=== PATIENT | female | born 1965 | race Caucasian/White ===

== ENCOUNTER 2023-03-17 10:11 | Observation (INO) | payer OTHER ==
[2023-03-17] MEDS ORDERED: SODIUM CHLORIDE 0.9% 1,000 ML IV ONE ×2 (10:30→11:44)
--- NOTE | 2023-03-17 10:33 | ED ---
Alcohol HPI - General Stated Complaint: ETOH Source: patient, EMS Mode of arrival: EMS Limitations: no limitations - History of Present Illness Initial Comments: The patient is a 57-year-old gentleman with a history of hypertension and alcohol abuse presents emergency room with complaints of alcohol intoxication. Patient was going to [facility] for detox from alcohol but was too drunk upon arrival and stumbled out of the car. They sent him to the ER for further evaluation. Patient did not hit his head or lose consciousness. He denies any complaints. He has gone through rehab in the past. He is addicted to alcohol and denies any drug use. He denies any withdrawal symptoms or history of wi thdrawal seizures. - Related Data Allergies Allergy/AdvReac Type Severity Reaction Status Date / Time No Known Allergies Allergy Verified 03/17/23 10:21 Review of Systems ROS Statement: Those systems with pertinent positive or pertinent negative responses have been documented in the HPI. ROS Other: All systems not noted in ROS Statement are negative. Past Medical History Additional Past Medical History / Comment(s): ETOH abuse Past Surgical History: No Surgical Hx Reported Past Psychological History: No Psychological Hx Reported Smoking Status: Never smoker Past Alcohol Use History: Abuse, Daily, Heavy Past Drug Use History: None Reported General Exam Limitations: no limitations General appearance: alert, in no apparent distress Head exam: Present: atraumatic, other (no signs of a hemorrhage, no hematomas. Pupils are equal and reactive bilaterally.) Eye exam: Present: normal appearance, PERRL, EOMI. Absent: scleral icterus, conjunctival injection, periorbital swelling ENT exam: Present: normal exam Respiratory exam: Present: normal lung sounds bilaterally Cardiovascular Exam: Present: regular rate, normal rhythm GI/Abdominal exam: Present: soft Extremities exam: Present: full ROM Back exam: Present: full ROM Neurological exam: Present: alert Psychiatric exam: Present: normal affect, normal mood Skin exam: Present: dry Course Vital Signs 03/17/23 10:19 Temperature 98.1 F Pulse Rate 88 Respiratory 20 Rate Blood Pressure 126/75 O2 Sat by Pulse 99 Oximetry - Reevaluation(s) Reevaluation #1: 03/17/23 12:51 Patient receiving IV fluids. Was given folic acid and thiamine as well as multivitamins in the emergency room. His alcohol level is 287 3 over admitted for observation and then discharged back to see her. Medical Decision Making - Medical Decision Making Was pt. sent in by a medical professional or institution (ERIK Kim, [employer]RI[employer] CAKE MAKER, urgent care, hospital, or skilled nursing...) When possible be specific @ -[No] Did you speak to anyone other than the patient for history (EMS, parent, family, police, friend...)? What history was obtained from this source @ -[No] Did you review nursing and triage notes (agree or disagree)? Why? @ -[I reviewed and agree with nursing and triage notes] Were old charts reviewed (outside hosp., previous admission, EMS record, old EKG, old radiological studies, urgent care reports/EKG's, skilled nursing records)? Report findings @ -[No old charts were reviewed] Differential Diagnosis (chest pain, altered mental status, abdominal pain women, abdominal pain men, vaginal bleeding, weakness, fever, dyspnea, syncope, headache, dizziness, GI bleed, back pain, seizure, CVA, palpatations, mental health, musculoskeletal)? @ -Alcohol abuse, alcohol intoxication EKG interpreted by me (3pts min.). @ -[As above] X-rays interpreted by me (1pt min.). @ -[None done] CT interpreted by me (1pt min.). @ -[None done] U/S interpreted by me (1pt. min.). @ -[None done] What testing was considered but not performed or refused? (CT, X-rays, U/S, labs)? Why? @ -[None] What meds were considered but not given or refused? Why? @ -[None] Did you discuss the management of the patient with other professionals (professionals i.e. , ERIK, FRIED CAKE MAKER, lab, RT, psych nurse, oncology social work, ethylbenzene converter helper, teacher, welfare officer, residential case manager)? Give summary @ -Discussed patient's symptoms are And management with attending ED physician Dr. Dennis today. Was smoking cessation discussed for >3mins.? @ -[No] Was critical care preformed (if so, how long)? @ -[No] Were there social determinants of health that impacted care today? How? (Homele ssness, low income, unemployed, alcoholism, drug addiction, transportation, low edu. Level, literacy, decrease access to med. care, [facility], rehab)? @ -[No] Was there de-escalation of care discussed even if they declined (Discuss DNR or withdrawal of care, Hospice)? DNR status @ -[No] What co-morbidities impacted this encounter? (DM, HTN, Smoking, COPD, CAD, Cancer, CVA, ARF, Chemo, Hep., AIDS, mental health diagnosis, sleep apnea, morbid obesity)? @ -History of alcohol abuse, hypertension Was patient admitted / discharged? Hospital course, mention meds given and route, prescriptions, significant lab abnormalities, going to OR and other pertinent info. @ -Patient will be admitted to the hospital for hydration and Tylenol he is sober for alcohol intoxication Undiagnosed new problem with uncertain prognosis? @ -[No] Drug Therapy requiring intensive monitoring for toxicity (Heparin, Nitro, Insulin, Cardizem)? @ -[No] Were any procedures done? @ -[No] Diagnosis/symptom? @ -Alcohol intoxication Acute, or Chronic, or Acute on Chronic? @ -Acute on chronic Uncomplicated (without systemic symptoms) or Complicated (systemic symptoms)? @ -UnComplicated Side effects of treatment? @ -[No] Exacerbation, Progression, or Severe Exacerbation? @ -[No] Poses a threat to life or bodily function? How? (Chest pain, USA, [place], pneumonia, PE, COPD, DKA, ARF, appy, cholecystitis, CVA, Diverticulitis, Homicidal, Suicidal, threat to staff... and all critical care pts) @ -[No] - Lab Data Result diagrams: 03/17/23 10:34 03/17/23 10:34 Lab Results 03/17/23 03/17/23 Range/Units 10:34 10:34 WBC 5.5 (3.8-10.6) k/uL RBC 4.36 (4.30-5.90) m/uL Hgb 11.3 L (13.0-17.5) gm/dL Hct 36.4 L (39.0-53.0) % MCV 83.4 (80.0-100.0) fL MCH 25.8 (25.0-35.0) pg MCHC 31.0 (31.0-37.0) g/dL RDW 17.2 H (11.5-15.5) % Plt Count 353 (150-450) k/uL MPV 7.8 Neutrophils % 61 % Lymphocytes % 23 % Monocytes % 6 % Eosinophils % 6 % Basophils % 1 % Neutrophils # 3.4 (1.3-7.7) k/uL Lymphocytes # 1.2 (1.0-4.8) k/uL Monocytes # 0.4 (0-1.0) k/uL Eosinophils # 0.4 (0-0.7) k/uL Basophils # 0.1 (0-0.2) k/uL Hypochromasia Moderate Anisocytosis Slight Sodium 140 (137-145) mmol/L Potassium 4.0 (3.5-5.1) mmol/L Chloride 106 (98-107) mmol/L Carbon Dioxide 22 (22-30) mmol/L Anion Gap 12 mmol/L BUN 9 (9-20) mg/dL Creatinine 1.57 H (0.66-1.25) mg/dL Est GFR (CKD-EPI)AfAm 57 (>60 ml/min/1.73 sqM) Est GFR (CKD-EPI)NonAf 49 (>60 ml/min/1.73 sqM) Glucose 83 (74-99) mg/dL Calcium 9.3 (8.4-10.2) mg/dL Total Bilirubin 0.4 (0.2-1.3) mg/dL AST 41 (17-59) U/L ALT 16 (4-49) U/L Alkaline Phosphatase 60 (38-126) U/L Total Protein 6.5 (6.3-8.2) g/dL Albumin 3.0 L (3.5-5.0) g/dL Serum Alcohol 284 H* mg/dL Disposition Clinical Impression: Alcohol intoxication Disposition: ADMITTED IP TO THIS HOSP Condition: Fair Is patient prescribed a controlled substance at d/c from ED?: No If prescribed controlled substance>3 days was MAPS reviewed?: No Referrals: None,Stated [Primary Care Provider] - 1-2 days Time of Disposition: 12:53
[2023-03-17 10:50] LABS: Anisocytosis Slight; Basophils # (A) 0.1 k/uL (0-0.2); Basophils % (A) 1 %; Eosinophils # (A) 0.4 k/uL (0-0.7); Eosinophils % (A) 6 %; HCT 36.4 % (39.0-53.0); HGB 11.3 gm/dL (13.0-17.5); Hypochromasia Moderate; Lymphocytes # (A) 1.2 k/uL (1.0-4.8); Lymphocytes % (A) 23 %; MCH 25.8 pg (25.0-35.0); MCV 83.4 fL (80.0-100.0); Mean Platelet Volume 7.8; Monocytes # (A) 0.4 k/uL (0-1.0); Monocytes % (A) 6 %; Neutrophils # (A) 3.4 k/uL (1.3-7.7); Neutrophils % (A) 61 %; Platelet Count 353 k/uL (150-450); RBC 4.36 m/uL (4.30-5.90); RDW 17.2 % (11.5-15.5); WBC 5.5 k/uL (3.8-10.6)
[2023-03-17 11:07] LABS: ALT 16 U/L (4-49); AST 41 U/L (17-59); African American GFR (CKD) 57 (>60 ml/min/1.73 sqM); Alkaline Phosphatase 60 U/L (38-126); Anion Gap 12 mmol/L; Blood Urea Nitrogen 9 mg/dL (9-20); Calcium 9.3 mg/dL (8.4-10.2); Carbon Dioxide 22 mmol/L (22-30); Chloride 106 mmol/L (98-107); Glucose 83 mg/dL (74-99); Non-African American GFR(CKD) 49 (>60 ml/min/1.73 sqM); Sodium 140 mmol/L (137-145); Total Bilirubin 0.4 mg/dL (0.2-1.3); Total Protein 6.5 g/dL (6.3-8.2)
[2023-03-17 11:32] LABS: Alcohol 284 mg/dL
[2023-03-17] MEDS ORDERED: THIAMINE 100 MG/ML 2 ML VIAL IV STA (12:37)
[2023-03-17] MEDS ORDERED: NALOXONE 0.4 MG/ML 1 ML VIAL IV PRN (12:39)
--- NOTE | 2023-03-17 12:58 | P.HPIM ---
History of Present Illness 57-year-old the male is a being admitted for alcohol intoxication. Patient is supposed to go to [place] today ended up drinking quite a bit and patient was sent in here. Patient denied any history of all call withdraws in the past. Patient does have elevated creatinine baseline is not available. Patient denied any abdominal pain. REVIEW OF SYSTEMS: CONSTITUTIONAL: No fever, no malaise, no fatigue. HEENT: No recent visual problems or hearing problems. Denied any sore throat. CARDIOVASCULAR: No chest pain, orthopnea, PND, no palpitations, no syncope. PULMONARY: No shortness of breath, no cough, no hemoptysis. GASTROINTESTINAL: No diarrhea, no nausea, no vomiting, no abdominal pain. NEUROLOGICAL: No headaches, no weakness, no numbness. HEMATOLOGICAL: Denies any bleeding or petechiae. GENITOURINARY: Denies any burning micturition, frequency, or urgency. MUSCULOSKELETAL/RHEUMATOLOGICAL: Denies any joint pain, swelling, or any muscle pain. ENDOCRINE: Denies any polyuria or polydipsia. The rest of the 14-point review of systems is negative. PHYSICAL EXAMINATION: GENERAL: The patient is alert and oriented x3, not in any acute distress. Well developed, well nourished. HEENT: Pupils are round and equally reacting to light. EOMI. No scleral icterus. No conjunctival pallor. Normocephalic, atraumatic. No pharyngeal erythema. No thyromegaly. CARDIOVASCULAR: S1 and S2 present. No murmurs, rubs, or gallops. PULMONARY: Chest is clear to auscultation, no wheezing or crackles. ABDOMEN: Soft, nontender, nondistended, normoactive bowel sounds. No palpable organomegaly. MUSCULOSKELETAL: No joint swelling or deformity. EXTREMITIES: No cyanosis, clubbing, or pedal edema. NEUROLOGICAL: Gross neurological examination did not reveal any focal deficits. SKIN: No rashes. Assessment and plan -Alcohol intoxication patient will be monitored for any alcohol withdrawal patient doesn't have any withdrawals will be discharged tomorrow to follow-up with [place]. -Elevated creatinine unknown. The patient is chronic kidney disease patient will be started on IV fluids we'll repeat kidney function tomorrow. Possibility of renal failure. DVT prophylaxis: Early ambulation GI prophylaxis Pepcid Past Medical History Additional Past Medical History / Comment(s): ETOH abuse Past Surgical History: No Surgical Hx Reported Past Psychological History: No Psychological Hx Reported Smoking Status: Never smoker Past Alcohol Use History: Abuse, Daily, Heavy Past Drug Use History: None Reported Medications and Allergies Allergies Allergy/AdvReac Type Severity Reaction Status Date / Time No Known Allergies Allergy Verified 03/17/23 10:21 Physical Exam Vitals: Vital Signs Temp Pulse Resp BP Pulse Ox 03/17/23 10:19 98.1 F 88 20 126/75 99 Intake and Output 03/16/23 03/17/23 03/17/23 22:59 06:59 14:59 Other: Weight 81.647 kg Results CBC & Chem 7: 03/17/23 10:34 03/17/23 10:34 Labs: Abnormal Lab Results - Last 24 Hours (Table) 03/17/23 03/17/23 Range/Units 10:34 10:34 Hgb 11.3 L (13.0-17.5) gm/dL Hct 36.4 L (39.0-53.0) % RDW 17.2 H (11.5-15.5) % Creatinine 1.57 H (0.66-1.25) mg/dL Albumin 3.0 L (3.5-5.0) g/dL Serum Alcohol 284 H* mg/dL
[2023-03-17] MEDS: FOLIC ACID 1 MG TAB PO SCH (13:48)
[2023-03-17] MEDS: FAMOTIDINE 20 MG TAB PO SCH ×2 (13:49→21:17)
[2023-03-17] MEDS: MULTIVITAMINS, THERA 1 EACH TAB PO SCH (13:49)
[2023-03-17] MEDS: SODIUM CHLORIDE 0.9% 1,000 ML IV SCH ×2 (13:49→21:17)
[2023-03-17] MEDS ORDERED: LORazepam 1 MG TAB PO PRN (19:49)
[2023-03-17] MEDS: ARIPiprazole 2 MG TAB PO SCH (21:17)
[2023-03-17] MEDS: DONEPEZIL 5 MG TAB PO SCH (21:17)
[2023-03-18] MEDS ORDERED: cloNIDine HCL 0.2 MG TAB PO SCH (09:00)
[2023-03-18] MEDS: SODIUM CHLORIDE 0.9% 1,000 ML IV SCH ×3 (09:05→19:32)
[2023-03-18] MEDS: FOLIC ACID 1 MG TAB PO SCH (09:06)
[2023-03-18] MEDS: FAMOTIDINE 20 MG TAB PO SCH ×2 (09:06→21:09)
[2023-03-18] MEDS: MULTIVITAMINS, THERA 1 EACH TAB PO SCH (09:06)
[2023-03-18] MEDS: ARIPiprazole 2 MG TAB PO SCH (09:06)
[2023-03-18 10:48] LABS: Anisocytosis Slight; Basophils # (A) 0.1 k/uL (0-0.2); Basophils % (A) 1 %; Eosinophils # (A) 0.2 k/uL (0-0.7); Eosinophils % (A) 3 %; HGB 11.7 gm/dL (11.4-16.0); Hypochromasia Marked; Lymphocytes # (A) 0.9 k/uL (1.0-4.8); Lymphocytes % (A) 11 %; MCH 25.5 pg (25.0-35.0); MCHC 29.9 g/dL (31.0-37.0); MCV 85.4 fL (80.0-100.0); Monocytes # (A) 0.4 k/uL (0-1.0); Monocytes % (A) 5 %; Neutrophils # (A) 6.5 k/uL (1.3-7.7); Neutrophils % (A) 79 %; Platelet Count 372 k/uL (150-450); RBC 4.57 m/uL (3.80-5.40); WBC 8.2 k/uL (3.8-10.6)
[2023-03-18] MEDS ORDERED: chlordiazePOXIDE 25 MG CAP PO STA (10:55)
[2023-03-18 11:17] LABS: ALT 19 U/L (4-34); AST 56 U/L (14-36); African American GFR (CKD) 66 (>60 ml/min/1.73 sqM); Albumin 3.4 g/dL (3.5-5.0); Albumin/Globulin Ratio 0.9; Alkaline Phosphatase 71 U/L (38-126); Anion Gap 15 mmol/L; Blood Urea Nitrogen 6 mg/dL (7-17); Calcium 9.4 mg/dL (8.4-10.2); Carbon Dioxide 21 mmol/L (22-30); Chloride 106 mmol/L (98-107); Globulin 3.8 g/dL; Glucose 89 mg/dL (74-99); Non-African American GFR(CKD) 58 (>60 ml/min/1.73 sqM); Potassium 3.8 mmol/L (3.5-5.1); Sodium 142 mmol/L (137-145); Total Bilirubin 0.7 mg/dL (0.2-1.3); Total Protein 7.2 g/dL (6.3-8.2)
[2023-03-18] MEDS: chlordiazePOXIDE 25 MG CAP PO SCH ×2 (16:07→21:09)
[2023-03-18] MEDS: carvediloL 12.5 MG TAB PO SCH (17:41)
[2023-03-18] MEDS: DONEPEZIL 5 MG TAB PO SCH (21:09)
[2023-03-19] MEDS: SODIUM CHLORIDE 0.9% 1,000 ML IV SCH (04:43)
[2023-03-19] MEDS: carvediloL 12.5 MG TAB PO SCH (06:32)
[2023-03-19 08:54] VITALS: BP 171/99; PULSE 70; RESP 20; TEMP 98.1
[2023-03-19] MEDS: ARIPiprazole 2 MG TAB PO SCH (09:23)
[2023-03-19] MEDS: chlordiazePOXIDE 25 MG CAP PO SCH (09:24)
[2023-03-19] MEDS: MULTIVITAMINS, THERA 1 EACH TAB PO SCH (09:24)
[2023-03-19] MEDS: FAMOTIDINE 20 MG TAB PO SCH (09:24)
[2023-03-19] MEDS: FOLIC ACID 1 MG TAB PO SCH (09:24)
--- NOTE | 2023-03-24 07:40 | P.DS ---
Providers Date of admission: 03/17/23 13:12 Expected date of discharge: 03/19/23 Attending physician: Matheus Cerda MD Primary care physician: Stated None Hospital Course: Final diagnosis -Alcohol intoxication -Elevated creatinine unknown. most likely chronic kidney disease -DVT prophylaxis -GI prophylaxis -full code Discharge disposition Patient is being discharged in a stable condition with guarded prognosis to home. Patient will follow-up with PCP in [place] in the outpatient setting upon discharge. Patient is to follow-up with access and alcohol rehab as scheduled. Total time taken is greater than 35 minutes. Hospital course This is a 57-year-old male who was recently admitted for acute alcohol intoxication and attempted to go to [place] although was intoxicated when arriving and was sent here for further evaluation. According to [facility] patient came intoxicated and is unable to go to alcohol rehab inpatient until following up with access point and must be at least 21 days before being adm itted to [place]. Showing no active signs of withdrawal and will be discharged today. Currently no reports of chest pain, shortness of breath, or palpitations. Patient is afebrile. No reports of nausea or vomiting and patient is tolerating diet. Patient will be discharged home today. Physical exam: Gen: This is a 57-year-old male who is awake, alert and oriented 3, well- developed, well-nourished HEENT: Head is atraumatic, normocephalic. Pupils equal, round. Sclerae is anicteric. NECK: Supple. No JVD. No lymphadenopathy. No thyromegaly. LUNGS: Clear to auscultation. No wheezes or rhonchi. No intercostal retractions. HEART: Regular rate and rhythm. No murmur. ABDOMEN: Soft. Bowel sounds are present. No masses. No tenderness. EXTREMITIES: No pedal edema. No calf tenderness. NEUROLOGICAL: Patient is awake, alert and oriented x3. Cranial nerves 2 through 12 are grossly intact. Please refer to medication reconciliation sheet for a list of medications. The impression and plan of care has been dictated by Yue Dickey, Nurse Practitioner as directed. Dr. Sunita MD I have performed a history and examination and MDM of this patient, discussed the same with the dictator, and agree with the dictator's assessment and plan as written ,documented as a scribe. Based on total visit time, I have performed more than 50% of the visit. Patient Condition at Discharge: Fair Plan - Discharge Summary Discharge Rx Participant: No New Discharge Prescriptions: New chlordiazePOXIDE HCl [Librium] 25 mg PO TID #6 cap carvediloL [Coreg*] 12.5 mg PO BID-W/MEALS #60 tab Continue LORazepam [Ativan] 0.5 - 1 mg PO DAILY PRN PRN Reason: Anxiety Donepezil [Aricept] 5 mg PO HS Cyanocobalamin [Vitamin B-12 Injection] 1,000 mcg IM Q30D ondansetron HCL [Zofran] 8 mg PO Q12H PRN PRN Reason: Nausea Testosterone Cypionate [Depo-Testosterone] 200 mg IM Q14D ARIPiprazole [Abilify] 2 mg PO DAILY Discontinued cloNIDine HCL [Catapres] 0.6 mg PO BID@0900,1400 Discharge Medication List ARIPiprazole [Abilify] 2 mg PO DAILY 03/17/23 [History] Cyanocobalamin [Vitamin B-12 Injection] 1,000 mcg IM Q30D 03/17/23 [History] Donepezil [Aricept] 5 mg PO HS 03/17/23 [History] LORazepam [Ativan] 0.5 - 1 mg PO DAILY PRN 03/17/23 [History] Testosterone Cypionate [Depo-Testosterone] 200 mg IM Q14D 03/17/23 [History] ondansetron HCL [Zofran] 8 mg PO Q12H PRN 03/17/23 [History] carvediloL [Coreg*] 12.5 mg PO BID-W/MEALS #60 tab 03/18/23 [Rx] chlordiazePOXIDE HCl [Librium] 25 mg PO TID #6 cap 03/18/23 [Rx] Follow up Appointment(s)/Referral(s): None,Stated [Primary Care Provider] - 1-2 days Patient Instructions/Handouts: Alcohol Intoxication (DC) Activity/Diet/Wound Care/Special Instructions: Prescription sent to Aline veloz at [facility] Activity Limited until follow-up Follow-up with primary care provider on discharge Follow-up outpatient alcohol rehab Continue Librium taper as directed and avoid all alcohol intake while taking this medication Strongly encouraged complete cessation from alcohol and exposure to you have an appt at [place] on Wednesday the at 8:30am. please show up 15min early. Discharge/Stand Alone Forms: AA Meetings [facility], [facility], Outpatient Counseling, In Substance Abuse Facilities, Personal Coal Inspector Discharge Disposition: HOME SELF-CARE
== END 2023-03-19 13:26 | disposition home or self-care (01) ==
LOC: EC 10:11 → EDSEX 13:12 → 6NMEDSUR 13:12
PROVIDERS: ADMIT Internal Medicine; ATTEND Internal Medicine
DX: F10.229 Alcohol dependence with intoxication, unspecified (principal); R79.89 Other specified abnormal findings of blood chemistry; N18.9 Chronic kidney disease, unspecified; Y90.8 Blood alcohol level of 240 mg/100 ml or more
CPT/HCPCS: 96361 ×2; 96374; 99285; 36415; 80053 ×2; 83735; 85025 ×2; G0378 ×3; G0480; J3411; 80320

== ENCOUNTER 2023-04-02 03:30 | Inpatient (IN) | payer OTHER ==
[2023-04-02] MEDS ORDERED: LORazepam 2 MG/ML INJ IV PRN (04:06)
[2023-04-02] MEDS ORDERED: THIAMINE 100 MG/ML 2 ML VIAL IM STA (04:06)
[2023-04-02] MEDS ORDERED: NALOXONE 0.4 MG/ML 1 ML VIAL IV PRN (04:07)
[2023-04-02] MEDS ORDERED: SODIUM CHLORIDE 0.9% 500 ML 500 ML IV ONE (04:07)
--- NOTE | 2023-04-02 04:13 | ED ---
General Adult HPI - General Chief complaint: Alcohol Stated complaint: Substance abuse Time Seen by Provider: 04/02/23 03:36 Source: patient, RN notes reviewed, old records reviewed Mode of arrival: EMS Limitations: no limitations - History of Present Illness Initial comments: 57 yo person presenting for suspected alcohol withdrawal, hallucinations. Teodoro stevens is coming from [place]. Apparently his last drink was approximately 36 hours ago. Patient is confused as to why he is here. He believes he is here because of elevated blood pressure. He has no physical complaints. He was sent in by [facility] with confusion and hallucination. Patient is on Aricept but there is no documentation of dementia. No history of seizure or seizure activ ity. - Related Data Home Medications Medication Instructions Recorded Confirmed ARIPiprazole [Abilify] 2 mg PO DAILY 03/17/23 03/17/23 Cyanocobalamin [Vitamin B-12 1,000 mcg IM Q30D 03/17/23 03/17/23 Injection] Donepezil [Aricept] 5 mg PO HS 03/17/23 03/17/23 LORazepam [Ativan] 0.5 - 1 mg PO DAILY PRN 03/17/23 03/17/23 Testosterone Cypionate 200 mg IM Q14D 03/17/23 03/17/23 [Depo-Testosterone] ondansetron HCL [Zofran] 8 mg PO Q12H PRN 03/17/23 03/17/23 Previous Rx's Medication Instructions Recorded carvediloL [Coreg*] 12.5 mg PO BID-W/MEALS #60 tab 03/18/23 chlordiazePOXIDE HCl [Librium] 25 mg PO TID #6 cap 03/18/23 Allergies Allergy/AdvReac Type Severity Reaction Status Date / Time No Known Allergies Allergy Verified 04/02/23 03:38 Review of Systems ROS Statement: Those systems with pertinent positive or pertinent negative responses have been documented in the HPI. ROS Other: All systems not noted in ROS Statement are negative. Past Medical History Additional Past Medical History / Comment(s): ETOH abuse History of Any Multi-Drug Resistant Organisms: None Reported Past Surgical History: No Surgical Hx Reported Past Psychological History: No Psychological Hx Reported Smoking Status: Never smoker Past Alcohol Use History: Abuse, Daily, Heavy Past Drug Use History: None Reported General Exam Limitations: no limitations General appearance: alert, in no apparent distress Head exam: Present: atraumatic, normocephalic Eye exam: Present: normal appearance, PERRL ENT exam: Present: normal exam Respiratory exam: Present: normal lung sounds bilaterally. Absent: respiratory distress Cardiovascular Exam: Present: regular rate, normal rhythm GI/Abdominal exam: Present: soft. Absent: distended, tenderness, guarding Extremities exam: Present: normal inspection, normal capillary refill Neurological exam: Present: alert, CN II-XII intact. Absent: oriented X3, motor sensory deficit Psychiatric exam: Present: normal affect, normal mood Skin exam: Present: warm, dry, intact Course Vital Signs 04/02/23 03:39 Temperature 98.2 F Pulse Rate 64 Respiratory 18 Rate Blood Pressure 165/106 O2 Sat by Pulse 100 Oximetry Medical Decision Making - Medical Decision Making Was pt. sent in by a medical professional or institution (, PA, ROLL ICER MACHINE, urgent care, hospital, or [facility]...) When possible be specific @ -Patient sent in from [facility] Did you speak to anyone other than the patient for history (EMS, parent, family, police, friend...)? What history was obtained from this source @ -No Did you review nursing and triage notes (agree or disagree)? Why? @ -I reviewed and agree with nursing and triage notes Were old charts reviewed (outside hosp., previous admission, EMS record, old EKG, old radiological studies, urgent care reports/EKG's, mcfp records)? Report findings @ -No old charts were reviewed Differential Diagnosis (chest pain, altered mental status, abdominal pain women, abdominal pain men, vaginal bleeding, weakness, fever, dyspnea, syncope, headache, dizziness, GI bleed, back pain, seizure, CVA, palpatations, mental health, musculoskeletal)? @ -Alcohol withdrawal delirium, delirium tremens, hallucination EKG interpreted by me (3pts min.). @ -As above X-rays interpreted by me (1pt min.). @ -None done CT interpreted by me (1pt min.). @ -None done U/S interpreted by me (1pt. min.). @ -None done What testing was considered but not performed or refused? (CT, X-rays, U/S, labs)? Why? @ -None What meds were considered but not given or refused? Why? @ -None Did you discuss the management of the patient with other professionals (professionals i.e. Dr., PA, ROLL ICER MACHINE, lab, RT, psych nurse, social work therapist, mower sharpener, teacher, juvenile detention officer, social work case manager)? Give summary @ -No Was smoking cessation discussed for >3mins.? @ -No Was critical care preformed (if so, how long)? @ -No Were there social determinants of health that impacted care today? How? (Homelessness, low income, unemployed, alcoholism, drug addiction, transportation, low edu. Level, literacy, decrease access to med. care, correction, rehab)? @ -[Alcoholism Was there de-escalation of care discussed even if they declined (Discuss DNR or withdrawal of care, Hospice)? DNR status @ -No What co-morbidities impacted this encounter? (DM, HTN, Smoking, COPD, CAD, Cancer, CVA, ARF, Chemo, Hep., AIDS, mental health diagnosis, sleep apnea, morbid obesity)? @ -None Was patient admitted / discharged? Hospital course, mention meds given and route, prescriptions, significant lab abnormalities, going to OR and other pertinent info. @ -[57-year-old presenting for evaluation of suspected alcohol withdrawal delirium. Patient is confused as to why he is here. He is hypertensive with a normal heart rate. Minimal resting tremor. Given the onset of confusion and will be admitted for alcohol withdrawal, close monitoring. Case discussed with sound physician group Dr. Sidhu, who will admit. Patient will be monitored on telemetry, seizure precautions. Given benzodiazepines for withdrawal Undiagnosed new problem with uncertain prognosis? @ -No Drug Therapy requiring intensive monitoring for toxicity (Heparin, Nitro, Insulin, Cardizem)? @ -No Were any procedures done? @ -No Diagnosis/symptom? @ -Alcohol withdrawal delirium Acute, or Chronic, or Acute on Chronic? @ -[Acute Uncomplicated (without systemic symptoms) or Complicated (systemic symptoms)? @ -default Side effects of treatment? @ -No Exacerbation, Progression, or Severe Exacerbation? @ -No Poses a threat to life or bodily function? How? (Chest pain, [place], [place], pneumonia, PE, COPD, DKA, ARF, appy, cholecystitis, CVA, Diverticulitis, Homicidal, Suicidal, threat to staff... and all critical care pts) @ -Yes, delirium tremens, seizure - Lab Data Result diagrams: 04/02/23 04:12 Lab Results 04/02/23 Range/Units 04:12 WBC 7.3 (3.8-10.6) k/uL RBC 4.18 (3.80-5.40) m/uL Hgb 10.8 L (11.4-16.0) gm/dL Hct 34.7 (34.0-46.0) % MCV 83.0 (80.0-100.0) fL MCH 25.8 (25.0-35.0) pg MCHC 31.1 (31.0-37.0) g/dL RDW 18.8 H (11.5-15.5) % Plt Count 245 (150-450) k/uL MPV 8.8 Neutrophils % 71 % Lymphocytes % 17 % Monocytes % 6 % Eosinophils % 4 % Basophils % 1 % Neutrophils # 5.2 (1.3-7.7) k/uL Lymphocytes # 1.2 (1.0-4.8) k/uL Monocytes # 0.5 (0-1.0) k/uL Eosinophils # 0.3 (0-0.7) k/uL Basophils # 0.0 (0-0.2) k/uL Hypochromasia Marked Anisocytosis Slight Microcytosis Slight Disposition Clinical Impression: Alcohol withdrawal delirium Disposition: ADMITTED IP TO THIS HOSP Condition: Serious Is patient prescribed a controlled substance at d/c from ED?: No Referrals: Nonstaff,Physician [Primary Care Provider] - 1-2 days Time of Disposition: 04:30
[2023-04-02] MEDS: SODIUM CHLORIDE 0.9% 1,000 ML IV SCH ×2 (04:25→16:38)
[2023-04-02 04:29] LABS: Anisocytosis Slight; Basophils % (A) 1 %; Eosinophils # (A) 0.3 k/uL (0-0.7); Eosinophils % (A) 4 %; HCT 34.7 % (34.0-46.0); HGB 10.8 gm/dL (11.4-16.0); Hypochromasia Marked; Lymphocytes # (A) 1.2 k/uL (1.0-4.8); Lymphocytes % (A) 17 %; MCH 25.8 pg (25.0-35.0); MCHC 31.1 g/dL (31.0-37.0); Mean Platelet Volume 8.8; Microcytosis Slight; Monocytes # (A) 0.5 k/uL (0-1.0); Monocytes % (A) 6 %; Neutrophils # (A) 5.2 k/uL (1.3-7.7); Neutrophils % (A) 71 %; Platelet Count 245 k/uL (150-450); RBC 4.18 m/uL (3.80-5.40); RDW 18.8 % (11.5-15.5); WBC 7.3 k/uL (3.8-10.6)
[2023-04-02 04:38] LABS: ALT 22 U/L (4-34); AST 51 U/L (14-36); African American GFR (CKD) 57 (>60 ml/min/1.73 sqM); Albumin 3.4 g/dL (3.5-5.0); Alkaline Phosphatase 90 U/L (38-126); Anion Gap 11 mmol/L; Blood Urea Nitrogen 9 mg/dL (7-17); Calcium 9.9 mg/dL (8.4-10.2); Carbon Dioxide 25 mmol/L (22-30); Chloride 105 mmol/L (98-107); Glucose 97 mg/dL (74-99); Magnesium 1.2 mg/dL (1.6-2.3); Non-African American GFR(CKD) 49 (>60 ml/min/1.73 sqM); Potassium 3.8 mmol/L (3.5-5.1); Sodium 141 mmol/L (137-145); Total Bilirubin 0.6 mg/dL (0.2-1.3); Total Protein 6.9 g/dL (6.3-8.2)
--- NOTE | 2023-04-02 04:40 | P.HPIM ---
History of Present Illness H&P Date: 04/02/23 Patient is a 57-year-old biological female, identified as a male, who was sent in by [facility] for suspected alcohol withdrawal with confusion. Patient reports long-standing history of alcohol abuse drinking a half to 1 pint of hard liquor daily. Patient's last drink was reportedly 36 hours ago. At [facility], he was noted to be increasingly confused, hallucinating, and somewhat shaky. The patient's blood pressure was also noted to be high. At the time of interview, the patient does not sure why he is at the hospital and says that he feels fine. Denied experiencing chest discomfort, shortness of breath, fever, chills, cough, nausea, vomiting, abdominal pain, diarrhea. In the emergency room, laboratory evaluation revealed hemoglobin of 10.8 with platelet count 245, Na 141, potassium 3.8, creatinine 1.24, magnesium 1.2, AST 51, and albumin 3.4. ED documentation reviewed and case discussed with ED provider. Review of systems: Pertinent positives and negatives as discussed in HPI, a complete review of systems was performed and all other systems are negative. Physical examination: Vital signs reviewed General: non toxic, no distress, appears at stated age, overweight Derm: no unusual rashes/lesions, warm Head: atraumatic, normocephalic, symmetric Eyes: EOMI, no lid lag, anicteric sclera, pupils equal round reactive to light ENT: Nose and ears atraumatic Neck: No cervical lymphadenopathy, trachea midline, supple Mouth: no lip lesion, mucus membranes moist, tongue fasciculations Cardiovascular: S1S2 reg, no murmur, positive dorsalis pedis pulse bilateral, no edema Lungs: CTA bilateral, no rhonchi, no rales, no accessory muscle use Abdominal: soft, nontender to palpation, no guarding Ext: muscle strength 5 out of 5 in all 4 extremities grossly, no gross muscle atrophy, no contractures, mild outstretched hand tremor Neuro: CN II-XI grossly intact, no gross focal neuro deficits Psych: Alert, oriented to person and place, not fully oriented to time Assessment: Altered mental status, suspect alcohol withdrawal delirium Normocytic anemia Kidney injury, acute versus chronic Hypomagnesemia Imaging: None performed Data Review: In the emergency room, laboratory evaluation revealed hemoglobin of 10.8 with platelet count 245. Plan: C/w [facility] protocol Ativan prn C/w Thiamine Continue with IV fluids 75 mL/h Replace magnesium and monitor Cardiac monitoring Fall, seizure precautions DVT prophylaxis: Lovenox subq The patient is admitted with an anticipated less than 2 midnight stay for evaluation of EtOH withdrawal CODE STATUS: Full Code Discussed with: Patient Anticipated discharge place: Home Past Medical History Additional Past Medical History / Comment(s): ETOH abuse History of Any Multi-Drug Resistant Organisms: None Reported Past Surgical History: No Surgical Hx Reported Past Psychological History: No Psychological Hx Reported Smoking Status: Never smoker Past Alcohol Use History: Abuse, Daily, Heavy Past Drug Use History: None Reported Medications and Allergies Home Medications Medication Instructions Recorded Confirmed Type ARIPiprazole [Abilify] 2 mg PO DAILY 03/17/23 03/17/23 History Cyanocobalamin [Vitamin B-12 1,000 mcg IM Q30D 03/17/23 03/17/23 History Injection] Donepezil [Aricept] 5 mg PO HS 03/17/23 03/17/23 History LORazepam [Ativan] 0.5 - 1 mg PO DAILY PRN 03/17/23 03/17/23 History Testosterone Cypionate 200 mg IM Q14D 03/17/23 03/17/23 History [Depo-Testosterone] ondansetron HCL [Zofran] 8 mg PO Q12H PRN 03/17/23 03/17/23 History carvediloL [Coreg*] 12.5 mg PO BID-W/MEALS #60 tab 03/18/23 Rx chlordiazePOXIDE HCl [Librium] 25 mg PO TID #6 cap 03/18/23 Rx Allergies Allergy/AdvReac Type Severity Reaction Status Date / Time No Known Allergies Allergy Verified 04/02/23 03:38 Physical Exam Vitals: Vital Signs Temp Pulse Resp BP Pulse Ox 04/02/23 03:39 98.2 F 64 18 165/106 100 Intake and Output 04/01/23 04/01/23 04/02/23 14:59 22:59 06:59 Other: Weight 79.379 kg Results CBC & Chem 7: 04/02/23 04:12 04/02/23 04:12 Labs: Abnormal Lab Results - Last 24 Hours (Table) 04/02/23 04/02/23 Range/Units 04:12 04:12 Hgb 10.8 L (11.4-16.0) gm/dL RDW 18.8 H (11.5-15.5) % Creatinine 1.24 H (0.52-1.04) mg/dL Magnesium 1.2 L (1.6-2.3) mg/dL AST 51 H (14-36) U/L Albumin 3.4 L (3.5-5.0) g/dL
[2023-04-02] MEDS: LORazepam 2 MG/ML INJ IV PRN ×5 (05:18→22:26)
[2023-04-02] MEDS: MAGNESIUM SULFATE-D5W PMX 1 GM in DEXTROSE/WATER 1 100ML.BAG IVPB SCH ×2 (05:19→06:10)
[2023-04-02] MEDS: ENOXAPARIN 40 MG/0.4 ML SYRINGE SQ SCH (08:41)
[2023-04-02] MEDS ORDERED: hydrALAZINE HCL 25 MG TAB PO STA (20:21)
[2023-04-03] MEDS: LORazepam 2 MG/ML INJ IV PRN ×8 (00:03→18:12)
[2023-04-03] MEDS: THIAMINE 100 MG TAB PO SCH (09:33)
[2023-04-03] MEDS: ENOXAPARIN 40 MG/0.4 ML SYRINGE SQ SCH (09:33)
[2023-04-03] MEDS: carvediloL 12.5 MG TAB PO SCH ×2 (10:52→17:54)
[2023-04-03] MEDS: SODIUM CHLORIDE 0.9% 1,000 ML IV SCH ×2 (10:53→20:00)
[2023-04-03 11:56] LABS: Anisocytosis Slight; HCT 31.6 % (34.0-46.0); HGB 9.9 gm/dL (11.4-16.0); Hypochromasia Marked; MCH 26.2 pg (25.0-35.0); MCHC 31.5 g/dL (31.0-37.0); MCV 83.2 fL (80.0-100.0); Mean Platelet Volume 8.6; Microcytosis Slight; Platelet Count 240 k/uL (150-450); RDW 19.1 % (11.5-15.5); WBC 6.6 k/uL (3.8-10.6)
[2023-04-03 12:10] LABS: African American GFR (CKD) 84 (>60 ml/min/1.73 sqM); Anion Gap 14 mmol/L; Blood Urea Nitrogen 6 mg/dL (7-17); Carbon Dioxide 20 mmol/L (22-30); Chloride 105 mmol/L (98-107); Glucose 87 mg/dL (74-99); Magnesium 1.1 mg/dL (1.6-2.3); Non-African American GFR(CKD) 73 (>60 ml/min/1.73 sqM); Potassium 3.6 mmol/L (3.5-5.1); Sodium 139 mmol/L (137-145)
--- NOTE | 2023-04-03 15:03 | P.PN ---
Subjective Progress Note Date: 04/03/23 Patient is a 57-year-old biological female, identified as a male, who was sent in by [facility] for suspected alcohol withdrawal with confusion. Patient reports long-standing history of alcohol abuse drinking a half to 1 pint of hard liquor daily. Patient's last drink was reportedly 36 hours ago. At [facility], he was noted to be increasingly confused, hallucinating, and somewhat shaky. The patient's blood pressure was also noted to be high. At the time of interview, the patient does not sure why he is at the hospital and says that he feels fine. Denied experiencing chest discomfort, shortness of breath, fever, chills, cough, nausea, vomiting, abdominal pain, diarrhea. In the emergency room, laboratory evaluation revealed hemoglobin of 10.8 with platelet count 245, Na 141, potassium 3.8, creatinine 1.24, magnesium 1.2, AST 51, and albumin 3.4. Patient was placed on CIWA protocol and given Ativan as needed. 04/03 Patient is confused. He thinks it's December. He believes he is in [place]. Attempting to get out of bed but re-directable. Given 10 mg IV ativan over the past 24H. Vital signs reviewed General: non toxic, no distress, appears at stated age, overweight Derm: no unusual rashes/lesions, warm Head: atraumatic, normocephalic, symmetric Eyes: EOMI, no lid lag, anicteric sclera ENT: Nose and ears atraumatic Neck: No cervical lymphadenopathy, trachea midline, supple Cardiovascular: S1S2 reg, no murmur, no edema Lungs: CTA bilateral, no rhonchi, no rales, no accessory muscle use Ext: muscle strength 5 out of 5 in all 4 extremities grossly, no gross muscle atrophy, no contractures, mild outstretched hand tremor Neuro: no gross focal neuro deficits Psych: Alert, oriented x 1 Altered mental status, suspect alcohol withdrawal delirium Normocytic anemia Hypomagnesemia Resolved: STEPHANE C/w CIWA protocol Ativan PRN Librium 20 mg PO TID. C/w Thiamine Continue with IV fluids 75 mL/h Replace 4g IV magnesium sulfate Obtain TSH, B12, Folate Cardiac monitoring Fall, seizure precautions DVT prophylaxis: Lovenox subq Objective - Vital Signs Vital signs: Vital Signs Temp 98.5 F 04/03/23 06:57 Pulse 89 04/03/23 06:57 Resp 17 04/03/23 06:57 BP 168/105 04/03/23 06:57 Pulse Ox 99 04/03/23 06:57 FiO2 Intake & Output 04/02/23 04/03/23 04/03/23 18:59 06:59 18:59 Weight 79.379 kg Other: # Voids 4 4 - Labs CBC & Chem 7: 04/03/23 11:33 04/03/23 11:33 Labs: Abnormal Lab Results - Last 24 Hours (Table) 04/03/23 04/03/23 Range/Units 11:33 11:33 Hgb 9.9 L (11.4-16.0) gm/dL Hct 31.6 L (34.0-46.0) % RDW 19.1 H (11.5-15.5) % Carbon Dioxide 20 L (22-30) mmol/L BUN 6 L (7-17) mg/dL Magnesium 1.1 L (1.6-2.3) mg/dL
[2023-04-03] MEDS: MAGNESIUM SULFATE-D5W PMX 1 GM in DEXTROSE/WATER 1 100ML.BAG IVPB SCH ×4 (15:05→20:00)
[2023-04-03] MEDS ORDERED: ACETAMINOPHEN TAB 325 MG TAB PO PRN (17:59)
[2023-04-04] MEDS: carvediloL 12.5 MG TAB PO SCH ×2 (05:47→16:40)
[2023-04-04] MEDS: THIAMINE 100 MG TAB PO SCH (08:27)
[2023-04-04] MEDS: ENOXAPARIN 40 MG/0.4 ML SYRINGE SQ SCH (08:27)
[2023-04-04] MEDS: SODIUM CHLORIDE 0.9% 1,000 ML IV SCH ×2 (08:27→23:21)
[2023-04-04 09:52] LABS: Glucose,Whole Blood 101 mg/dL (70-110)
[2023-04-04] MEDS: LORazepam 2 MG/ML INJ IV PRN ×3 (10:41→20:06)
[2023-04-04] MEDS ORDERED: hydrALAZINE HCL 20 MG/ML 1 ML VIAL IVP STA (12:20)
[2023-04-04 12:29] LABS: African American GFR (CKD) 86 (>60 ml/min/1.73 sqM); Anion Gap 17 mmol/L; Blood Urea Nitrogen 7 mg/dL (7-17); Carbon Dioxide 18 mmol/L (22-30); Chloride 100 mmol/L (98-107); Glucose 86 mg/dL (74-99); Magnesium 1.3 mg/dL (1.6-2.3); Non-African American GFR(CKD) 75 (>60 ml/min/1.73 sqM); Potassium 3.7 mmol/L (3.5-5.1); Sodium 135 mmol/L (137-145)
--- NOTE | 2023-04-04 12:42 | P.PN ---
Subjective Progress Note Date: 04/04/23 Patient is a 57-year-old biological female, identified as a male, who was sent in by [facility] for suspected alcohol withdrawal with confusion. Patient reports long-standing history of alcohol abuse drinking a half to 1 pint of hard liquor daily. Patient's last drink was reportedly 36 hours ago. At [facility], he was noted to be increasingly confused, hallucinating, and somewhat shaky. The patient's blood pressure was also noted to be high. At the time of interview, the patient does not sure why he is at the hospital and says that he feels fine. Denied experiencing chest discomfort, shortness of breath, fever, chills, cough, nausea, vomiting, abdominal pain, diarrhea. In the emergency room, laboratory evaluation revealed hemoglobin of 10.8 with platelet count 245, Na 141, potassium 3.8, creatinine 1.24, magnesium 1.2, AST 51, and albumin 3.4. Patient was placed on CIWA protocol and given Ativan as needed. 04/03 Patient is confused. He thinks it's December. He believes he is in [place]. Attempting to get out of bed but re-directable. Given 10 mg IV ativan over the past 24H. 04/04 Patient was seen and examined. He is extremely restless today. Retaining > 600 cc urine on bladder scan. SBP consistently in the 200s. He also has low grade fevers. BMP Na 135, bicarb 18. Mag 1.3. B12 1699. Folate 13.9. TSH 2.2. Ammonia 10. Vital signs reviewed General: non toxic, moderate distress, appears at stated age, overweight Derm: no unusual rashes/lesions, warm Head: atraumatic, normocephalic, symmetric Eyes: EOMI, no lid lag, anicteric sclera ENT: Nose and ears atraumatic Neck: No cervical lymphadenopathy, trachea midline, supple Cardiovascular: S1S2 tachycardic, no murmur, no edema Lungs: CTA bilateral, no rhonchi, no rales, no accessory muscle use Ext: muscle strength 5 out of 5 in all 4 extremities grossly, no gross muscle atrophy, no contractures, outstretched hand tremor Neuro: no gross focal neuro deficits Psych: Alert, oriented x 1 Acute metabolic encephalopathy Delirium tremens Hypertensive urgency Urinary retention Normocytic anemia Hypomagnesemia Resolved: STEPHANE Based on my assessment of this patient, this patient meets a high complexity level of care. Patient has a history of alcohol abuse with severe exacerbation or progression of disease which poses a threat to life or bodily function. Currently has delirium tremens with hypertensive urgency. Acute metabolic encephalopathy: Fall and seizure precautions. B12, Folic acid, TSH, Ammonia within normal limits. Obtain CT head. Delirium tremens: Ativan PRN for withdrawal symptoms per CIWA scale. Continue Librium 20 mg PO TID. Telemetry monitoring. Hypertensive urgency: Continue Coreg 12.5 mg PO BID. Hydralazine 10 mg IV Q4H PRN for SBP > 180 and DBP > 100. Urinary retention: Delgado catheter. Normocytic anemia Hypomagnesemia: Mag sulfate 4g IV ordered today. I have reviewed the following securities consultant notes: I have reviewed the results of the following tests: As above. I have ordered the following tests: CT head. I have discussed the care of this patient with the following independent historian: I have independently interpreted the following test below: I have discussed the management of this patient with the following physician: Objective - Vital Signs Vital signs: Vital Signs Temp 100.0 F H 04/04/23 07:29 Pulse 91 04/04/23 07:29 Resp 18 04/04/23 07:29 BP 216/95 04/04/23 07:29 Pulse Ox 92 L 04/04/23 07:29 FiO2 Intake & Output 04/03/23 04/04/23 04/04/23 18:59 06:59 18:59 Other: # Voids 3 1 - Labs CBC & Chem 7: 04/03/23 11:33 04/03/23 11:33 Labs: Abnormal Lab Results - Last 24 Hours (Table) 04/04/23 Range/Units 06:31 Vitamin B12 1699.0 H (200.0-944.0) pg/mL
[2023-04-04] MEDS: MAGNESIUM SULFATE-D5W PMX 1 GM in DEXTROSE/WATER 1 100ML.BAG IVPB SCH ×4 (14:04→18:09)
--- NOTE | 2023-04-04 18:09 | CT ---
EXAMINATION TYPE: CT brain wo con DATE OF EXAM: 04/04/2023 COMPARISON: None INDICATION: ETOH, withdraws DLP: 1138.4 mGycm, Automated exposure control for dose reduction was used. CONTRAST: None CT of the brain is performed utilizing 3 mm thick sections through the posterior fossa and 3 mm thick sections through the remaining calvarium. Study is performed within 24 hours of arrival to the hosp [facility]. No abnormal hyperdensity is present to suggest an acute intracranial hemorrhage. No mass lesion is evident. No acute infarcts are evident. Ventricles and sulci are appropriate for the patient age. Paranasal sinuses and mastoid air cells within the [id number] are clear. IMPRESSION: 1. No acute intracranial process. Follow-up MRI can be performed as clinically indicated.
[2023-04-04] MEDS: hydrALAZINE HCL 20 MG/ML 1 ML VIAL IVP PRN ×2 (18:13→22:02)
--- NOTE | 2023-04-04 22:04 | XR ---
EXAMINATION TYPE: XR chest 1V portable DATE OF EXAM: 04/04/2023 COMPARISON: None INDICATION: Fluid overload TECHNIQUE: Single frontal view of the chest is obtained. FINDINGS: The heart size is normal. The pulmonary vasculature is normal. The lungs are clear. IMPRESSION: 1. No acute pulmonary process.
[2023-04-04] MEDS ORDERED: FLUMAZENIL 0.1 MG/ML 5 ML VIAL IVP STA ×6 (22:27→23:22)
[2023-04-04 22:41] LABS: ABG Base Excess 1.3 mmol/L; ABG HCO3 26 mmol/L (21-25); ABG Oxygen Saturation 68.3 % (94-97); ABG PCO2 38 mmHg (35-45); ABG PH 7.44 (7.35-7.45); ABG TCO2 27 mmol/L (19-24); Allen Test Performed? Yes
[2023-04-04 22:48] LABS: ABG PO2 40 mmHg (83-108)
[2023-04-04 23:57] LABS: Acetaminophen <10.0 ug/mL; Salicylate <1.0 mg/dL
--- NOTE | 2023-04-05 01:51 | CT ---
EXAM: CT Angiography Chest With Intravenous Contrast CLINICAL HISTORY: ITS.REASON CT Reason: PE TECHNIQUE: Axial computed tomographic angiography images of the chest with intravenous contrast. CTDI is 22.17 mGy and DLP is 561.2 mGy-cm. This CT exam was performed using one or more of the following dose reduction techniques: automated exposure control, adjustment of the mA and/or kV according to patient size, and/or use of iterative reconstruction technique. MIP reconstructed images were created and reviewed. COMPARISON: No relevant prior studies available. FINDINGS: Pulmonary arteries: No filling defects. Aorta: No thoracic aortic aneurysm. Lungs: Bilateral lower lobe patchy opacities. Pleural space: No pneumothorax. No effusion. Subtle centrilobular opacities in the right upper lobe. Heart: No cardiomegaly. No pericardial effusion. Bones/joints: No acute fracture or dislocation. DISH. Soft tissues: Mild hiatal hernia. Thickened esophageal wall Lymph nodes: No enlarged lymph nodes. IMPRESSION: 1. No pulmonary nodule 2. Thickened esophagus. Correlate with esophagitis. 3. Bilateral lower lobe patchy opacities. Likely aspiration/PNA
[2023-04-05 01:52] LABS: Glucose,Whole Blood 115 mg/dL (70-110)
[2023-04-05 02:16] LABS: Glucose,Whole Blood 105 mg/dL (70-110)
--- NOTE | 2023-04-05 03:01 | XR ---
EXAM: XR Chest, 1 View CLINICAL HISTORY: ITS.REASON XR Reason: Tube placement TECHNIQUE: Frontal view of the chest. COMPARISON: No relevant prior studies available. IMPRESSION: ET tube and NG tube in good position
[2023-04-05 04:55] LABS: ABG Base Excess 1.1 mmol/L; ABG HCO3 24 mmol/L (21-25); ABG PCO2 32 mmHg (35-45); ABG PH 7.49 (7.35-7.45); ABG PO2 243 mmHg (83-108); ABG TCO2 25 mmol/L (19-24); Allen Test Performed? Yes
[2023-04-05] MEDS ORDERED: ACETAMINOPHEN IV (For NPO) 1,000 MG in EMPTY BAG 1 BAG IVPB PRN (05:55)
--- NOTE | 2023-04-05 05:55 | P.EN ---
notified by RN around 10 pm about patient mental status and hypoxemia patient came in originally for alcohol withdrawal . however, since the morning of Wednesday 04/04 there was noted an acute change in mental status , CT of the brain performed and was negative for any acute pathology , and blood work overall was unremarkable . patient continue to be tachycardiac and hypertensive, for which he was given ativan per [facility]OM[facility]WA. total Ativan given all day was 3 mg , with last dose around 8 pm of 1 mg of ativan IVP. upon my evaluation at around 10 pm , patient minimally responsive on nasal canula 4-6 L satting high 80s . incremental doses of flumazinel were given , as patient continued to show response to each dose and improvement in mental status and oxygenation. CXR done was pretty much unremarkable ABG showed severe hypoxemia 7. patient given total of 2.5 mg of flumazenil at this point patient was opening eyes spontaneously , moving his extremities spontaneously but only slightly , responds to verbal stimulation makes good eye contact, but was only mumbling few words . he was able to keep his head up, and started on non rebreather and his oxygen sat was 95% due to having clear CXR , and having a big bruise on his right leg with history of an injury or fall about 2 weeks ago . suspicion was high for acute PE as cause of hypoxemia D dimer came back elevated at 2.0 CTA ordered and performed , results showed no acute PE but significant changes suspicious of aspiration upon reevaluating the patient , he seemed to be lethargic again , not responsive to verbal stimulation , oxygen sat down to 90% on non rebreather. he spiked a fever of 101 and was starting to twitch. decision made to intubate patient to protect airways , and to start him on propo fol to control his withdrawal symptoms and twitches. infectious workup ordered with blood cultures , and lactic acid patient moved to the ICU I spent 75 minutes in critical care time in the care of this patient , not including procedures.
[2023-04-05] MEDS: carvediloL 12.5 MG TAB PO SCH (06:02)
[2023-04-05 06:12] LABS: Glucose,Whole Blood 111 mg/dL (70-110)
[2023-04-05] MEDS ORDERED: SODIUM CHLORIDE 0.9% 1,000 ML IV ONE ×4 (06:31→17:00)
[2023-04-05 07:51] LABS: Anisocytosis Slight; HCT 33.8 % (34.0-46.0); HGB 10.3 gm/dL (11.4-16.0); Hypochromasia Marked; MCH 25.7 pg (25.0-35.0); MCHC 30.5 g/dL (31.0-37.0); MCV 84.2 fL (80.0-100.0); Mean Platelet Volume 9.8; Microcytosis Slight; Platelet Count 331 k/uL (150-450); RBC 4.02 m/uL (3.80-5.40); RDW 19.3 % (11.5-15.5)
[2023-04-05 08:29] LABS: African American GFR (CKD) 67 (>60 ml/min/1.73 sqM); Anion Gap 12 mmol/L; Blood Urea Nitrogen 11 mg/dL (7-17); Calcium 8.3 mg/dL (8.4-10.2); Carbon Dioxide 22 mmol/L (22-30); Chloride 98 mmol/L (98-107); Glucose 104 mg/dL (74-99); Magnesium 2.1 mg/dL (1.6-2.3); Non-African American GFR(CKD) 58 (>60 ml/min/1.73 sqM); Potassium 3.6 mmol/L (3.5-5.1); Sodium 132 mmol/L (137-145)
[2023-04-05] MEDS: CHLORHEXIDINE GLUCONATE 15 ML CUP MUCOUS MEM SCH ×2 (08:53→20:01)
[2023-04-05] MEDS: THIAMINE 100 MG TAB PO SCH (08:53)
[2023-04-05] MEDS: ENOXAPARIN 40 MG/0.4 ML SYRINGE SQ SCH (08:54)
[2023-04-05] MEDS: PANTOPRAZOLE 40 MG/10 ML VIAL IVP SCH ×2 (08:54→20:02)
[2023-04-05] MEDS: AMPICILLIN-SULBACTAM 3 GM in SODIUM CHLORIDE 0.9% 100 ML IVPB SCH ×2 (08:54→16:27)
[2023-04-05 11:41] LABS: Glucose,Whole Blood 114 mg/dL (70-110)
--- NOTE | 2023-04-05 11:43 | P.PN ---
Subjective Progress Note Date: 04/05/23 Patient is a 57-year-old biological female, identified as a male, who was sent in by [facility] for suspected alcohol withdrawal with confusion. Patient reports long-standing history of alcohol abuse drinking a half to 1 pint of hard liquor daily. Patient's last drink was reportedly 36 hours ago. At [facility], he was noted to be increasingly confused, hallucinating, and somewhat shaky. The patient's blood pressure was also noted to be high. At the time of interview, the patient does not sure why he is at the hospital and says that he feels fine. Denied experiencing chest discomfort, shortness of breath, fever, chills, cough, nausea, vomiting, abdominal pain, diarrhea. In the emergency room, laboratory evaluation revealed hemoglobin of 10.8 with platelet count 245, Na 141, potassium 3.8, creatinine 1.24, magnesium 1.2, AST 51, and albumin 3.4. Patient was placed on CIWA protocol and given Ativan as needed. 04/03 Patient is confused. He thinks it's December. He believes he is in [place]. Attempting to get out of bed but re-directable. Given 10 mg IV ativan over the past 24H. 04/04 Patient was seen and examined. He is extremely restless today. Retaining > 600 cc urine on bladder scan. SBP consistently in the 200s. He was given 2 doses of Hydralazine 10 mg IV for hypertension. He also has low grade fevers. BMP Na 135, bicarb 18. Mag 1.3. B12 1699. Folate 13.9. TSH 2.2. Ammonia 10. 04/05 Mentation continued to worsen overnight. He was found to be minimally responsive and newly hypoxic saturating 80's on 4-6L NC. Incremental doses of flumazelin was given with minimal improvement. ABG showed pO2 of 40. D-Dimer elevated at 2.0. CTA chest was ordered which was negative for PE but findings of aspiration pneumonia. CT brain negative for acute pathology. He was eventually i ntubated to protect his airway and moved to ICU. This morning he is febrile with Tmax 103.1, hypotensive with BP 85/49, RR 28, saturating 99% on mechanical ventilation. Propofol at 20 mcg/kg/min for sedation. Unasyn started for aspiration PNA. Vital signs reviewed General: Sedated on ventilator Derm: no unusual rashes/lesions, warm Head: atraumatic, normocephalic, symmetric Eyes: no lid lag, anicteric sclera ENT: Nose and ears atraumatic Neck: No cervical lymphadenopathy, trachea midline, supple Cardiovascular: S1S2 tachycardic, no murmur, no edema Lungs: Coarse BS bilateral, no rhonchi, no rales, no accessory muscle use Ext: muscle strength 5 out of 5 in all 4 extremities grossly, no gross muscle atrophy, no contractures Psych: Sedated Acute hypoxic respiratory failure Sepsis due to aspiration pneumonia Acute metabolic encephalopathy Delirium tremens Urinary retention Normocytic anemia Hypomagnesemia Resolved: STEPHANE Based on my assessment of this patient, this patient meets a high complexity level of care. Patient has a history of alcohol abuse with severe exacerbation or progression of disease which poses a threat to life or bodily function. Currently has delirium tremens with hypertensive urgency. Intubated on 04/05. Treated for aspiration PNA. Acute hypoxic respiratory failure Sepsis due to aspiration pneumonia: Sputum culture. Blood cuture. Procalcitonin. NS at 75 cc/hr. Maintain MAP > 65. Unasyn 3g IV Q8H. Pulmonology consult. Acute metabolic encephalopathy: Fall and seizure precautions. B12, Folic acid, TSH, Ammonia within normal limits. CT head negative. Delirium tremens: Ativan PRN for withdrawal symptoms per CIWA scale. Telemetry monitoring. Urinary retention: Delgado catheter. Intake and outtake. Normocytic anemia Hypomagnesemia: Mag sulfate 4g IV. I have reviewed the following nurse consultant notes: I have reviewed the results of the following tests: As above. I have ordered the following tests: CBC, BMP, Sputum Cx, Procal, Mag, Blood Cx. I have discussed the care of this patient with the following independent historian: I have independently interpreted the following test below: CTA chest. I have discussed the management of this patient with the following physician: Objective - Vital Signs Vital signs: Vital Signs Temp 103.1 F H 04/05/23 05:30 Pulse 86 04/05/23 07:00 Resp 28 H 04/05/23 07:00 BP 85/49 04/05/23 07:00 Pulse Ox 99 04/05/23 07:00 FiO2 60 04/05/23 04:57 Intake & Output 04/04/23 04/05/23 04/05/23 18:59 06:59 18:59 Intake Total 1150.481 20 Output Total 1600 300 5 Balance -1600 850.481 15 Weight 79.2 kg Intake: IV 1120 20 ACETAMINOPHEN IV (For NPO 100 ) 1,000 mg In Empty Bag 1 bag @ 400 mls/hr IVPB Q6HR PRN Rx#:[id number] KVO 20 20 Sodium Chloride 0.9% 1, 1000 000 ml @ 999 mls/hr IV . Q1H1M ONE Rx#:[id number] Intake, IV Titration 30.481 Amount propofoL 1,000 mg In 30.481 Empty Bag 1 bag @ 15 MCG/ KG/MIN 7.144 mls/hr IV . Q14H JABIER Rx#:[id number] Output: Urine 1600 300 5 Uretheral (Delgado) 700 Other: Voiding Method Indwelling Catheter - Labs CBC & Chem 7: 04/05/23 06:36 04/05/23 06:36 Labs: Abnormal Lab Results - Last 24 Hours (Table) 04/04/23 04/04/23 04/04/23 Range/Units 06:31 11:22 22:38 WBC (3.8-10.6) k/uL Hgb (11.4-16.0) gm/dL Hct (34.0-46.0) % MCHC (31.0-37.0) g/dL RDW (11.5-15.5) % D-Dimer (<0.60) mg/L FEU ABG pH (7.35-7.45) ABG pCO2 (35-45) mmHg ABG pO2 40 L* (83-108) mmHg ABG HCO3 26 H (21-25) mmol/L ABG Total CO2 27 H (19-24) mmol/L ABG O2 Saturation 68.3 L (94-97) % Sodium 135 L (137-145) mmol/L Carbon Dioxide 18 L (22-30) mmol/L POC Glucose (mg/dL) (70-110) mg/dL Magnesium 1.3 L (1.6-2.3) mg/dL Vitamin B12 1699.0 H (200.0-944.0) pg/mL 04/04/23 04/05/23 04/05/23 Range/Units 23:30 01:50 04:53 WBC (3.8-10.6) k/uL Hgb (11.4-16.0) gm/dL Hct (34.0-46.0) % MCHC (31.0-37.0) g/dL RDW (11.5-15.5) % D-Dimer 2.00 H (<0.60) mg/L FEU ABG pH 7.49 H (7.35-7.45) ABG pCO2 32 L (35-45) mmHg ABG pO2 243 H (83-108) mmHg ABG HCO3 (21-25) mmol/L ABG Total CO2 25 H (19-24) mmol/L ABG O2 Saturation 100.0 H (94-97) % Sodium (137-145) mmol/L Carbon Dioxide (22-30) mmol/L POC Glucose (mg/dL) 115 H (70-110) mg/dL Magnesium (1.6-2.3) mg/dL Vitamin B12 (200.0-944.0) pg/mL 04/05/23 04/05/23 Range/Units 06:10 06:36 WBC 15.0 H (3.8-10.6) k/uL Hgb 10.3 L (11.4-16.0) gm/dL Hct 33.8 L (34.0-46.0) % MCHC 30.5 L (31.0-37.0) g/dL RDW 19.3 H (11.5-15.5) % D-Dimer (<0.60) mg/L FEU ABG pH (7.35-7.45) ABG pCO2 (35-45) mmHg ABG pO2 (83-108) mmHg ABG HCO3 (21-25) mmol/L ABG Total CO2 (19-24) mmol/L ABG O2 Saturation (94-97) % Sodium (137-145) mmol/L Carbon Dioxide (22-30) mmol/L POC Glucose (mg/dL) 111 H (70-110) mg/dL Magnesium (1.6-2.3) mg/dL Vitamin B12 (200.0-944.0) pg/mL
[2023-04-05 11:59] LABS: Amphetamine Screen,Urine Not Detected (NotDetected); Barbiturate Screen,Urine Not Detected (NotDetected); Benzodiazepines Screen,Urine Detected (NotDetected); Cocaine Screen,Urine Not Detected (NotDetected); Methadone Screen, Urine Not Detected (NotDetected); Opiate Screen,Urine Not Detected (NotDetected); Oxycodone Screen, Urine Not Detected (NotDetected); Phencyclidine Screen,Urine Not Detected (NotDetected); Tricyclic Antidepressant,Urine Not Detected (NotDetected); Urn Cannabinoid Scrn Not Detected (NotDetected)
[2023-04-05] MEDS: SODIUM CHLORIDE 0.9% 1,000 ML IV SCH (12:00)
[2023-04-05] MEDS ORDERED: Magnesium Replacement Protocol 1 EACH MISC MISCELLANE PRN (12:32)
[2023-04-05] MEDS ORDERED: Potassium Replacement Protocol 1 EACH MISC MISCELLANE PRN (12:32)
[2023-04-05] MEDS ORDERED: POTASSIUM BICARBONATE/CIT AC 20 MEQ TABLET.EFF NG-TUBE SCH (13:00)
[2023-04-05 13:11] LABS: Urine Alcohol Negative (Negative); Urine Barbiturate Negative (Negative); Urine Cocaine Negative (Negative); Urine Methadone Negative (Negative); Urine Opiates Negative (Negative); Urine Phencyclidine Negative (Negative)
--- NOTE | 2023-04-05 13:24 | P.CNPUL ---
History of Present Illness Consult date: 04/05/23 Requesting physician: Cesilia Sidhu Reason for consult: other (Acute alcohol withdrawal) Chief complaint: Altered mental status History of present illness: This is a 57-year-old biological female, identified as a mail, sent by [facility] for suspected alcohol withdrawal and confusion/altered mental status. She has long-standing history of alcohol abuse, drinks on the average of one half pint to 1. pint of hard liquor daily. Apparently had last drink was 36 hours prior, while at [facility] patient was noted to be confused and hallucinating and shaky. Blood pressure was also noted to be elevated, patient was sent to [facility], and apparently CT of the brain showed no evidence of active process, patient was admitted to the floor, and he required significant amount of Ativan for sedation to the point that the patient was difficult to arouse, and could not protect her airways. Patient was transferred to the ICU intubated, mechanically ventilated, and we were asked to see the patient on consultation. Patient is on assist control rate of 2010 volume 400 FiO2 was 60% and PEEP of 5 after reviewing ABG showed a pO2 of 243 pCO2 32 pH of 7.49 I changed the rate down to 18 FiO2 down to 45%. And increased the flow rate up to 65 L/m. Patient is on propofol at 15 mcg/kg/m also on IV fluids 75 mL of 0.9 normal saline at an an hour. Blood pressure is marginal urine output is poor, hence I recommended 2 L of fluid boluses given shortly after I evaluated the patient in the ICU. Not much history could be obtained from the patient. Labs showed relatively normal CBC is relatively normal electrolytes are relatively normal renal profile drug screen mostly positive for benzodiazepines. tone and 1.55 CT angiogram of the chest showed atelectasis/infiltrates, most likely consistent with aspiration pneumonia Review of Systems ROS unobtainable: due to endotracheal tube Past Medical History Additional Past Medical History / Comment(s): ETOH abuse History of Any Multi-Drug Resistant Organisms: Unobtainable Past Surgical History: No Surgical Hx Reported Past Anesthesia/Blood Transfusion Reactions: Unable to Obtain Past Psychological History: No Psychological Hx Reported, Unable to Obtain Smoking Status: Unknown if ever smoked Past Alcohol Use History: Abuse, Daily, Heavy Past Drug Use History: None Reported Medications and Allergies Home Medications Medication Instructions Recorded Confirmed Type ondansetron HCL [Zofran] 8 mg PO Q6H PRN 03/17/23 04/02/23 History Acetaminophen Tab [Tylenol] 650 mg PO QID PRN 04/02/23 04/02/23 History Calcium/Mag/Zinc/D3 1 tab PO TID 04/02/23 04/02/23 History Chlorpheniramine Maleate 4 mg PO Q4H PRN 04/02/23 04/02/23 History [Chlor-Trimeton] Famotidine [Pepcid] 40 mg PO BID@0600,1800 04/02/23 04/02/23 History Ibuprofen [Motrin Ib] 600 mg PO Q6H PRN 04/02/23 04/02/23 History Loperamide [Imodium] 2 - 4 mg PO QID PRN 04/02/23 04/02/23 History Multivitamins, Thera [Multivitamin 1 tab PO DAILY PRN 04/02/23 04/02/23 History (formulary)] Mylanta 30 ml PO Q4H PRN 04/02/23 04/02/23 History Thiamine [Vitamin B-1] 100 mg PO DAILY PRN 04/02/23 04/02/23 History carvediloL [Coreg*] 12.5 mg PO BID@0600,1800 04/02/23 04/02/23 History cloNIDine HCL [Catapres] 0.1 - 0.3 mg PO Q4H PRN 04/02/23 04/02/23 History traZODone HCL [Desyrel] 50 - 150 mg PO HS 04/02/23 04/02/23 History Allergies Allergy/AdvReac Type Severity Reaction Status Date / Time No Known Allergies Allergy Verified 04/02/23 07:15 Physical Exam Vitals: Vital Signs Temp Pulse Pulse Resp BP BP BP 04/05/23 13:00 71 22 97/48 04/05/23 12:00 98.8 F 75 24 110/56 04/05/23 11:03 04/05/23 11:00 70 20 84/46 04/05/23 10:30 70 23 85/41 04/05/23 10:00 73 21 87/44 04/05/23 09:30 75 19 95/57 04/05/23 09:00 77 24 85/47 04/05/23 08:50 04/05/23 08:49 04/05/23 08:30 78 31 H 80/54 04/05/23 08:00 99.1 F 80 25 H 81/48 04/05/23 07:54 04/05/23 07:30 80 27 H 90/50 04/05/23 07:00 86 28 H 85/49 04/05/23 06:30 92 29 H 84/50 04/05/23 06:00 96 29 H 116/56 04/05/23 05:30 103.1 F H 96 20 04/05/23 05:00 98 20 119/59 04/05/23 04:57 04/05/23 04:30 97 20 110/58 04/05/23 04:00 98 20 134/51 04/05/23 03:30 103 H 20 87/52 04/05/23 03:00 92 20 68/40 04/05/23 02:30 20 67/37 04/05/23 02:18 04/05/23 01:45 101.5 F H 04/05/23 01:33 98 27 H 04/04/23 22:20 33 H 04/04/23 22:15 30 H 04/04/23 22:00 184/102 04/04/23 21:49 31 H 04/04/23 19:51 99 F 108 H 18 176/100 04/04/23 18:45 189/98 04/04/23 18:14 181/106 04/04/23 15:39 85 04/04/23 13:52 97.8 F 105 H 19 172/97 Pulse Ox FiO2 04/05/23 13:00 100 04/05/23 12:00 97 40 04/05/23 11:03 45 04/05/23 11:00 100 45 04/05/23 10:30 100 04/05/23 10:00 99 04/05/23 09:30 99 04/05/23 09:00 98 04/05/23 08:50 45 04/05/23 08:49 45 04/05/23 08:30 98 04/05/23 08:00 99 45 04/05/23 07:54 60 04/05/23 07:30 99 04/05/23 07:00 99 04/05/23 06:30 98 04/05/23 06:00 97 04/05/23 05:30 96 04/05/23 05:00 99 04/05/23 04:57 60 04/05/23 04:30 100 04/05/23 04:00 100 100 04/05/23 03:30 100 04/05/23 03:00 99 04/05/23 02:30 95 100 04/05/23 02:18 97 04/05/23 01:45 04/05/23 01:33 89 L 04/04/23 22:20 85 L 04/04/23 22:15 92 L 04/04/23 22:00 04/04/23 21:49 90 L 04/04/23 19:51 91 L 04/04/23 18:45 04/04/23 18:14 04/04/23 15:39 04/04/23 13:52 96 Intake and Output 04/04/23 04/05/23 04/05/23 22:59 06:59 14:59 Intake Total 0042.355 2368.047 Output Total 200 300 170 Balance -200 410.299 8187.047 Intake: IV 1120 2140 ACETAMINOPHEN IV (For NPO 100 ) 1,000 mg In Empty Bag 1 bag @ 400 mls/hr IVPB Q6HR PRN Rx#:[id number] KVO 20 140 Sodium Chloride 0.9% 1, 1000 2000 000 ml @ 999 mls/hr IV . Q1H1M ONE Rx#:[id number] Intake, IV Titration 30.481 345.047 Amount Sodium Chloride 0.9% 1, 300 000 ml @ 75 mls/hr IV . [id number] JABIER Rx#:[id number] propofoL 1,000 mg In 30.481 45.047 Empty Bag 1 bag @ 15 MCG/ KG/MIN 7.144 mls/hr IV . Q14H JABIER Rx#:[id number] Tube Feeding 0 Other 0 Output: Urine 200 300 170 Other: Voiding Method Indwelling Catheter Indwelling Catheter Indwelling Catheter Weight 79.2 kg 82.554 kg Physical Exam: Revealed 57-year-old in no distress, sedated, mechanically ventilated. On propofol. Head: Atraumatic, normocephalic. Sedated, endotracheal tube and orogastric tube are intact HEENT:[Neck is supple.] [No neck masses.] [No thyromegaly.] [No JVD.] Chest: [MetroGel chest expansion diminished breath sounds at the bases no crackles or rhonchi or wheezes Cardiac Exam: [Normal S1 and S2, no S3 gallop, no murmur.] Abdomen: [Soft, nontender, no megaly, no rebound, no guarding, normal bowel sounds.] Extremities: [No clubbing, no edema, no cyanosis.], Good pulses bilaterally Neurological Exam: Could not assess patient is sedated, on propofol. Psychiatric: Could not assess Skin: No rashes, multiple tattoos noted all over. Results - Laboratory Findings CBC and BMP: 04/05/23 06:36 04/05/23 06:36 ABG ABG pH 7.49 (7.35-7.45) H 04/05/23 04:53 ABG pCO2 32 mmHg (35-45) L 04/05/23 04:53 ABG pO2 243 mmHg (83-108) H 04/05/23 04:53 ABG O2 Saturation 100.0 % (94-97) H 04/05/23 04:53 PT/INR, D-dimer D-Dimer 2.00 mg/L FEU (<0.60) H 04/04/23 23:30 Abnormal lab findings: Abnormal Labs 04/02/23 04/02/23 04/03/23 04:12 04:12 11:33 WBC Hgb 10.8 L 9.9 L Hct 31.6 L MCHC RDW 18.8 H 19.1 H D-Dimer ABG pH ABG pCO2 ABG pO2 ABG HCO3 ABG Total CO2 ABG O2 Saturation Sodium Carbon Dioxide BUN Creatinine 1.24 H Glucose POC Glucose (mg/dL) Calcium Magnesium 1.2 L AST 51 H Albumin 3.4 L Vitamin B12 Procalcitonin U Benzodiazepines Scrn 04/03/23 04/04/23 04/04/23 11:33 06:31 11:22 WBC Hgb Hct MCHC RDW D-Dimer ABG pH ABG pCO2 ABG pO2 ABG HCO3 ABG Total CO2 ABG O2 Saturation Sodium 135 L Carbon Dioxide 20 L 18 L BUN 6 L Creatinine Glucose POC Glucose (mg/dL) Calcium Magnesium 1.1 L 1.3 L AST Albumin Vitamin B12 1699.0 H Procalcitonin U Benzodiazepines Scrn 04/04/23 04/04/23 04/04/23 22:38 22:45 23:30 WBC Hgb Hct MCHC RDW D-Dimer 2.00 H ABG pH ABG pCO2 ABG pO2 40 L* ABG HCO3 26 H ABG Total CO2 27 H ABG O2 Saturation 68.3 L Sodium Carbon Dioxide BUN Creatinine Glucose POC Glucose (mg/dL) Calcium Magnesium AST Albumin Vitamin B12 Procalcitonin U Benzodiazepines Scrn Positive A 04/05/23 04/05/23 04/05/23 01:50 04:53 06:10 WBC Hgb Hct MCHC RDW D-Dimer ABG pH 7.49 H ABG pCO2 32 L ABG pO2 243 H ABG HCO3 ABG Total CO2 25 H ABG O2 Saturation 100.0 H Sodium Carbon Dioxide BUN Creatinine Glucose POC Glucose (mg/dL) 115 H 111 H Calcium Magnesium AST Albumin Vitamin B12 Procalcitonin U Benzodiazepines Scrn 04/05/23 04/05/23 04/05/23 06:36 06:36 06:36 WBC 15.0 H Hgb 10.3 L Hct 33.8 L MCHC 30.5 L RDW 19.3 H D-Dimer ABG pH ABG pCO2 ABG pO2 ABG HCO3 ABG Total CO2 ABG O2 Saturation Sodium 132 L Carbon Dioxide BUN Creatinine 1.08 H Glucose 104 H POC Glucose (mg/dL) Calcium 8.3 L Magnesium AST Albumin Vitamin B12 Procalcitonin 1.55 H U Benzodiazepines Scrn 04/05/23 04/05/23 08:25 11:40 WBC Hgb Hct MCHC RDW D-Dimer ABG pH ABG pCO2 ABG pO2 ABG HCO3 ABG Total CO2 ABG O2 Saturation Sodium Carbon Dioxide BUN Creatinine Glucose POC Glucose (mg/dL) 114 H Calcium Magnesium AST Albumin Vitamin B12 Procalcitonin U Benzodiazepines Scrn Detected H - Diagnostic Findings Chest x-ray: image reviewed CT scan - chest: image reviewed (As noted in HPI) Assessment and Plan Assessment: Impression: Acute alcohol withdrawal, suspect acute delirium tremens Acute respiratory failure, requiring intubation mostly to protect his airways Acute aspiration pneumonia is strongly suspected History of alcohol abuse acute leukocytosis secondary to above Recommendation: Continue ventilatory support, adjust ventilator settings accordingly Continue nutritional support/enteral feeding GI and DVT prophylaxis Consider placement of a central line and arterial line for hemodynamic monitoring and for more fluid boluses patient may require pressors Hypotension, likely hypovolemic in nature and could also be secondary to narcotics/sedatives given for sedation. Patient will likely improve with fluid boluses Check cultures including sputum cultures and blood cultures Start patient on Zosyn empirically for presumptive aspiration pneumonia Continue to monitor in the ICU Patient is critically ill We will continue to follow Time with Patient: Greater than 30
[2023-04-05 17:43] LABS: Glucose,Whole Blood 106 mg/dL (70-110)
[2023-04-05 23:51] LABS: Glucose,Whole Blood 102 mg/dL (70-110)
[2023-04-06] MEDS: NOREPINEPHRINE 4 MG in SODIUM CHLORIDE 0.9% 250 ML IV SCH ×2 (00:18→21:44)
[2023-04-06] MEDS: AMPICILLIN-SULBACTAM 3 GM in SODIUM CHLORIDE 0.9% 100 ML IVPB SCH ×3 (00:55→17:43)
[2023-04-06] MEDS: SODIUM CHLORIDE 0.9% 1,000 ML IV SCH ×2 (00:55→16:11)
[2023-04-06 04:48] LABS: Anisocytosis Slight; Basophils # (A) 0.1 k/uL (0-0.2); Basophils % (A) 0 %; Eosinophils # (A) 0.1 k/uL (0-0.7); Eosinophils % (A) 1 %; HCT 26.3 % (34.0-46.0); Hypochromasia Marked; Lymphocytes # (A) 0.7 k/uL (1.0-4.8); Lymphocytes % (A) 6 %; MCH 25.6 pg (25.0-35.0); MCHC 30.4 g/dL (31.0-37.0); MCV 84.2 fL (80.0-100.0); Mean Platelet Volume 8.4; Microcytosis Slight; Monocytes # (A) 0.7 k/uL (0-1.0); Monocytes % (A) 6 %; Neutrophils # (A) 10.7 k/uL (1.3-7.7); Neutrophils % (A) 85 %; Platelet Count 199 k/uL (150-450); RBC 3.12 m/uL (3.80-5.40); RDW 19.2 % (11.5-15.5); WBC 12.5 k/uL (3.8-10.6)
[2023-04-06 05:00] LABS: African American GFR (CKD) 51 (>60 ml/min/1.73 sqM); Anion Gap 6 mmol/L; Blood Urea Nitrogen 23 mg/dL (7-17); Calcium 7.1 mg/dL (8.4-10.2); Carbon Dioxide 21 mmol/L (22-30); Chloride 108 mmol/L (98-107); Glucose 90 mg/dL (74-99); Non-African American GFR(CKD) 44 (>60 ml/min/1.73 sqM); Potassium 3.6 mmol/L (3.5-5.1); Sodium 135 mmol/L (137-145)
[2023-04-06 05:52] LABS: ABG Base Excess -0.5 mmol/L; ABG HCO3 23 mmol/L (21-25); ABG Oxygen Saturation 99.6 % (94-97); ABG PCO2 32 mmHg (35-45); ABG PH 7.47 (7.35-7.45); ABG PO2 134 mmHg (83-108); ABG TCO2 24 mmol/L (19-24); Allen Test Performed? Yes
[2023-04-06 06:17] LABS: Glucose,Whole Blood 112 mg/dL (70-110)
--- NOTE | 2023-04-06 07:21 | XR ---
EXAMINATION TYPE: XR chest 1V portable DATE OF EXAM: 04/06/2023 COMPARISON: 04/05/2023 INDICATION: Tube placement TECHNIQUE: Single frontal view of the chest is obtained. FINDINGS: The heart size is normal. The pulmonary vasculature is normal. Small left pleural effusion has developed. Mild infiltrate mainly in the posterior right lung base Endotracheal tube tip is 2 cm above the beth. Nasogastric tube is curled within the left upper quad rant of the abdomen. IMPRESSION: 1. Small left pleural effusion. 2. Slight increase right lower lobe infiltrate. 3. Lines and catheters discussed above
[2023-04-06] MEDS ORDERED: POTASSIUM BICARBONATE/CIT AC 20 MEQ TABLET.EFF NG-TUBE SCH (09:00)
[2023-04-06] MEDS: PANTOPRAZOLE 40 MG/10 ML VIAL IVP SCH ×2 (09:15→20:02)
[2023-04-06] MEDS: ENOXAPARIN 40 MG/0.4 ML SYRINGE SQ SCH (09:15)
[2023-04-06] MEDS: CHLORHEXIDINE GLUCONATE 15 ML CUP MUCOUS MEM SCH ×2 (09:16→20:02)
[2023-04-06] MEDS: THIAMINE 100 MG TAB PO SCH (09:16)
--- NOTE | 2023-04-06 10:50 | P.PN ---
Subjective Progress Note Date: 04/06/23 Patient is a 57-year-old biological female, identified as a male, who was sent in by [facility] for suspected alcohol withdrawal with confusion. Patient reports long-standing history of alcohol abuse drinking a half to 1 pint of hard liquor daily. Patient's last drink was reportedly 36 hours ago. At [facility], he was noted to be increasingly confused, hallucinating, and somewhat shaky. The patient's blood pressure was also noted to be high. At the time of interview, the patient does not sure why he is at the hospital and says that he feels fine. Denied experiencing chest discomfort, shortness of breath, fever, chills, cough, nausea, vomiting, abdominal pain, diarrhea. In the emergency room, laboratory evaluation revealed hemoglobin of 10.8 with platelet count 245, Na 141, potassium 3.8, creatinine 1.24, magnesium 1.2, AST 51, and albumin 3.4. Patient was placed on CIWA protocol and given Ativan as needed for alcohol withdrawal. 04/03 Patient is confused. He thinks it's December. He believes he is in [place]. Attempting to get out of bed but re-directable. Given 10 mg IV ativan over the past 24H. 04/04 Patient was seen and examined. He is extremely restless today. Retaining > 600 cc urine on bladder scan. SBP consistently in the 200s. He was given 2 doses of Hydralazine 10 mg IV for hypertension. He also has low grade fevers. BMP Na 135, bicarb 18. Mag 1.3. B12 1699. Folate 13.9. TSH 2.2. Ammonia 10. 04/05 Mentation continued to worsen overnight. He was found to be minimally responsive and newly hypoxic saturating 80's on 4-6L NC. Incremental doses of flumazelin was given with minimal improvement. ABG showed pO2 of 40. D-Dimer elevated at 2.0. CTA chest was ordered which was negative for PE but findings of aspiration pneumonia. CT brain negative for acute pathology. He was eventually intubated to protect his airway and moved to ICU. This morning he is febrile with Tmax 103.1, hypotensive with BP 85/49, RR 28, saturating 99% on mechanical ventilation. Propofol at 20 mcg/kg/min for sedation. Unasyn started for aspiration PNA. 04/06 Patient continues to be intubated. He was on levophed overnight for hypotension for a short period of time which has been weaned off this morning. CBC WBC 12.5, Hg 8. ABG pH 7.47, pCO2 32. BMP Na 135, Cl 108, bicarb 21, BUN 23, Cr 1.36, Ca 7.1. Procal elevated at 1.55. CXR shows right lower lobe infiltrate. Antibiotics include Unasyn for coverage of aspiration PNA. Sedated with propofol. Vital signs reviewed General: Sedated on ventilator Derm: no unusual rashes/lesions, warm Head: atraumatic, normocephalic, symmetric Eyes: no lid lag, anicteric sclera ENT: Nose and ears atraumatic Neck: No cervical lymphadenopathy, trachea midline, supple Cardiovascular: S1S2 reg, no murmur, no edema Lungs: Coarse BS bilateral, no rhonchi, no rales, no accessory muscle use Ext: muscle strength 5 out of 5 in all 4 extremities grossly, no gross muscle atrophy, no contractures Psych: Sedated Acute hypoxic respiratory failure Sepsis due to aspiration pneumonia Acute metabolic encephalopathy Delirium tremens Hypotension due to STEPHANE Urinary retention Normocytic anemia Hypomagnesemia Based on my assessment of this patient, this patient meets a high complexity level of care. Patient has a history of alcohol abuse with severe exacerbation or progression of disease which poses a threat to life or bodily function. Currently has delirium tremens with hypertensive urgency. Intubated on 04/05. Treated for aspiration PNA. Acute hypoxic respiratory failure Sepsis due to aspiration pneumonia: Sputum culture. Blood cuture. Procalcitonin elevated. NS at 75 cc/hr. Maintain MAP > 65. Unasyn 3g IV Q8H. Pulmonology consult. Acute metabolic encephalopathy: Fall and seizure precautions. B12, Folic acid, TSH, Ammonia within normal limits. CT head negative. Delirium tremens: Ativan PRN for withdrawal symptoms per CIWA scale. Telemetry monitoring. Hypotension due to STEPHANE: Possibly due to overseadation. Status post 4L NS bolus. Resolving. Urinary retention: Delgado catheter. Intake and outtake. Normocytic anemia Hypomagnesemia I have reviewed the following surgical consultant notes: Pulmonology note. I have reviewed the results of the following tests: As above. I have ordered the following tests: CBC, BMP Sputum Cx, Blood Cx pending. I have discussed the care of this patient with the following independent historian: I have independently interpreted the following test below: CXR. I have discussed the management of this patient with the following physician: Objective - Vital Signs Vital signs: Vital Signs Temp 99.2 F 04/06/23 00:00 Pulse 82 04/06/23 07:00 Resp 18 04/06/23 07:00 BP 132/74 04/06/23 07:00 Pulse Ox 99 04/06/23 07:00 FiO2 45 04/06/23 04:00 Intake & Output 04/05/23 04/06/23 04/06/23 18:59 06:59 18:59 Intake Total 5233.590 1397.976 20 Output Total 275 390 50 Balance 4958.590 1007.976 -30 Weight 82.554 kg 85 kg Intake: IV 2240 945 Ampicillin-Sulbactam 3 gm 100 In Sodium Chloride 0.9% 100 ml @ 200 mls/hr IVPB Q8HR JABIER Rx#:[id number] KVO 240 20 Sodium Chloride 0.9% 1, 825 000 ml @ 75 mls/hr IV . [id number] JABIER Rx#:[id number] Sodium Chloride 0.9% 1, 2000 000 ml @ 999 mls/hr IV . Q1H1M ONE Rx#:[id number] Intake, IV Titration 2933.590 242.976 Amount Norepinephrine 4 mg In 51.584 Sodium Chloride 0.9% 250 ml @ 0.03 MCG/KG/MIN 9. 436 mls/hr IV .Q24H JABIER Rx#:[id number] Sodium Chloride 0.9% 1, 825 75 000 ml @ 75 mls/hr IV . [id number] JABIER Rx#:[id number] Sodium Chloride 0.9% 1, 1000 000 ml @ 999 mls/hr IV . Q1H1M ONE Rx#:[id number] Sodium Chloride 0.9% 1, 1000 000 ml @ 999 mls/hr IV . Q1H1M ONE Rx#:[id number] propofoL 1,000 mg In 108.590 116.392 Empty Bag 1 bag @ 15 MCG/ KG/MIN 7.144 mls/hr IV . Q14H JABIER Rx#:[id number] Tube Feeding 30 120 20 Other 30 90 Output: Urine 275 390 50 Other: Voiding Method Indwelling Catheter Indwelling Catheter - Labs CBC & Chem 7: 04/06/23 04:01 04/06/23 04:01 Labs: Abnormal Lab Results - Last 24 Hours (Table) 04/04/23 04/05/23 04/05/23 Range/Units 22:45 06:36 06:36 WBC 15.0 H (3.8-10.6) k/uL RBC (3.80-5.40) m/uL Hgb 10.3 L (11.4-16.0) gm/dL Hct 33.8 L (34.0-46.0) % MCHC 30.5 L (31.0-37.0) g/dL RDW 19.3 H (11.5-15.5) % Neutrophils # (1.3-7.7) k/uL Lymphocytes # (1.0-4.8) k/uL ABG pH (7.35-7.45) ABG pCO2 (35-45) mmHg ABG pO2 (83-108) mmHg ABG O2 Saturation (94-97) % Sodium (137-145) mmol/L Chloride (98-107) mmol/L Carbon Dioxide (22-30) mmol/L BUN (7-17) mg/dL Creatinine (0.52-1.04) mg/dL Glucose (74-99) mg/dL POC Glucose (mg/dL) (70-110) mg/dL Calcium (8.4-10.2) mg/dL Procalcitonin 1.55 H (0.02-0.09) ng/mL U Benzodiazepines Scrn Positive A (Negative) 04/05/23 04/05/23 04/05/23 Range/Units 06:36 08:25 11:40 WBC (3.8-10.6) k/uL RBC (3.80-5.40) m/uL Hgb (11.4-16.0) gm/dL Hct (34.0-46.0) % MCHC (31.0-37.0) g/dL RDW (11.5-15.5) % Neutrophils # (1.3-7.7) k/uL Lymphocytes # (1.0-4.8) k/uL ABG pH (7.35-7.45) ABG pCO2 (35-45) mmHg ABG pO2 (83-108) mmHg ABG O2 Saturation (94-97) % Sodium 132 L (137-145) mmol/L Chloride (98-107) mmol/L Carbon Dioxide (22-30) mmol/L BUN (7-17) mg/dL Creatinine 1.08 H (0.52-1.04) mg/dL Glucose 104 H (74-99) mg/dL POC Glucose (mg/dL) 114 H (70-110) mg/dL Calcium 8.3 L (8.4-10.2) mg/dL Procalcitonin (0.02-0.09) ng/mL U Benzodiazepines Scrn Detected H (Negative) 04/06/23 04/06/23 04/06/23 Range/Units 04:01 04:01 05:46 WBC 12.5 H (3.8-10.6) k/uL RBC 3.12 L (3.80-5.40) m/uL Hgb 8.0 L D (11.4-16.0) gm/dL Hct 26.3 L (34.0-46.0) % MCHC 30.4 L (31.0-37.0) g/dL RDW 19.2 H (11.5-15.5) % Neutrophils # 10.7 H (1.3-7.7) k/uL Lymphocytes # 0.7 L (1.0-4.8) k/uL ABG pH 7.47 H (7.35-7.45) ABG pCO2 32 L (35-45) mmHg ABG pO2 134 H (83-108) mmHg ABG O2 Saturation 99.6 H (94-97) % Sodium 135 L (137-145) mmol/L Chloride 108 H (98-107) mmol/L Carbon Dioxide 21 L (22-30) mmol/L BUN 23 H (7-17) mg/dL Creatinine 1.36 H (0.52-1.04) mg/dL Glucose (74-99) mg/dL POC Glucose (mg/dL) (70-110) mg/dL Calcium 7.1 L (8.4-10.2) mg/dL Procalcitonin (0.02-0.09) ng/mL U Benzodiazepines Scrn (Negative) 04/06/23 Range/Units 06:16 WBC (3.8-10.6) k/uL RBC (3.80-5.40) m/uL Hgb (11.4-16.0) gm/dL Hct (34.0-46.0) % MCHC (31.0-37.0) g/dL RDW (11.5-15.5) % Neutrophils # (1.3-7.7) k/uL Lymphocytes # (1.0-4.8) k/uL ABG pH (7.35-7.45) ABG pCO2 (35-45) mmHg ABG pO2 (83-108) mmHg ABG O2 Saturation (94-97) % Sodium (137-145) mmol/L Chloride (98-107) mmol/L Carbon Dioxide (22-30) mmol/L BUN (7-17) mg/dL Creatinine (0.52-1.04) mg/dL Glucose (74-99) mg/dL POC Glucose (mg/dL) 112 H (70-110) mg/dL Calcium (8.4-10.2) mg/dL Procalcitonin (0.02-0.09) ng/mL U Benzodiazepines Scrn (Negative)
[2023-04-06] MEDS: DEXMEDETOMIDINE/0.9% NACL(PMX) 400 MCG in EMPTY BAG 1 BAG IV SCH ×2 (11:07→19:00)
[2023-04-06 11:33] LABS: Glucose,Whole Blood 100 mg/dL (70-110)
--- NOTE | 2023-04-06 11:36 | P.PN ---
Subjective Progress Note Date: 04/06/23 Principal diagnosis: Acute alcohol withdrawal This is a 57-year-old biological female, identified as a mail, sent by [facility] for suspected alcohol withdrawal and confusion/altered mental status. She has long-standing history of alcohol abuse, drinks on the average of one half pint to 1. pint of hard liquor daily. Apparently had last drink was 36 hours prior, while at [place] patient was noted to be confused and hallucinating and shaky. Blood pressure was also noted to be elevated, patient was sent to [facility], and apparently CT of the brain showed no evidence of active process, patient was admitted to the floor, and he required significa nt amount of Ativan for sedation to the point that the patient was difficult to arouse, and could not protect her airways. Patient was transferred to the ICU intubated, mechanically ventilated, and we were asked to see the patient on consultation. Patient is on assist control rate of 2010 volume 400 FiO2 was 60% and PEEP of 5 after reviewing ABG showed a pO2 of 243 pCO2 32 pH of 7.49 I changed the rate down to 18 FiO2 down to 45%. And increased the flow rate up to 65 L/m. Patient is on propofol at 15 mcg/kg/m also on IV fluids 75 mL of 0.9 normal saline at an an hour. Blood pressure is marginal urine output is poor, hence I recommended 2 L of fluid boluses given shortly after I evaluated the patient in the ICU. Not much history could be obtained from the patient. Labs showed relatively normal CBC is relatively normal electrolytes are relatively normal renal profile drug screen mostly positive for benzodiazepines. tone and 1.55 CT angiogram of the chest showed atelectasis/infiltrates, most likely consistent with aspiration pneumonia Reevaluated today 04/06/23, patient remains in the ICU intubated and mechanically ventilated. Patient is on assist control rate of 18 tidal volume 400 FiO2 45% PEEP of 5 remains on propofol at 35 mcg/kg/m. IV fluids 75 mL of 0.9 normal saline per hour. ABG showed a pO2 of 134 pCO2 32 pH of 7.47. Chest x-ray showed small left pleural effusion and right basilar atelectasis/infiltrates. WBC count is 12.5 hemoglobin is 8 basic metabolic p rofile is normal. BUN is 23 creatinine 1.36. Patient did receive significant amount of fluids over the last 24 hours. Urine output remains marginal. Hence more fluids will be given today the meantime I plan to discontinue sedation and give the patient hopefully a weaning trial today, but considering the patient's presentation and history of alcohol abuse as well as alcohol withdrawal, I'm planning to use Precedex to replace propofol and gradually wean off propofol and give the patient a trial of weaning after a trial of pressure support and CPAP. In the meantime continue antibiotics. And continue GI and DVT prophylaxis Objective - Vital Signs Vital signs: Vital Signs Temp 99.9 F H 04/06/23 07:15 Pulse 81 04/06/23 11:15 Resp 0 L 04/06/23 11:15 BP 139/80 04/06/23 11:15 Pulse Ox 99 04/06/23 11:15 FiO2 45 04/06/23 08:12 Intake & Output 04/05/23 04/06/23 04/06/23 18:59 06:59 18:59 Intake Total 5233.590 1397.976 470 Output Total 275 390 550 Balance 4958.590 1007.976 -80 Weight 82.554 kg 85 kg Intake: IV 2240 945 400 Ampicillin-Sulbactam 3 gm 100 100 In Sodium Chloride 0.9% 100 ml @ 200 mls/hr IVPB Q8HR [facility] Rx#:[id number] KVO 240 20 Sodium Chloride 0.9% 1, 825 300 000 ml @ 75 mls/hr IV . [id number] [facility] Rx#:[id number] Sodium Chloride 0.9% 1, 2000 000 ml @ 999 mls/hr IV . Q1H1M [facility] Rx#:[id number] Intake, IV Titration 2933.590 242.976 Amount Norepinephrine 4 mg In 51.584 Sodium Chloride 0.9% 250 ml @ 0.03 MCG/KG/MIN 9. 436 mls/hr IV .Q24H [facility] Rx#:[id number] Sodium Chloride 0.9% 1, 825 75 000 ml @ 75 mls/hr IV . [id number] [facility] Rx#:[id number] Sodium Chloride 0.9% 1, 1000 000 ml @ 999 mls/hr IV . Q1H1M [facility] Rx#:[id number] Sodium Chloride 0.9% 1, 1000 000 ml @ 999 mls/hr IV . Q1H1M [facility] Rx#:[id number] propofoL 1,000 mg In 108.590 116.392 Empty Bag 1 bag @ 15 MCG/ KG/MIN 7.144 mls/hr IV . Q14H [facility] Rx#:[id number] Tube Feeding 30 120 40 Other 30 90 30 Output: Urine 275 390 550 Other: Voiding Method Indwelling Catheter Indwelling Catheter Indwelling Catheter - Exam Physical Exam: Revealed 57-year-old in no distress, sedated, mechanically ventilated. On propofol. Head: Atraumatic, normocephalic. Sedated, endotracheal tube and orogastric tube are intact HEENT:[Neck is supple.] [No neck masses.] [No thyromegaly.] [No JVD.] Chest: [[employer] chest expansion diminished breath sounds at the bases no crackles or rhonchi or wheezes Cardiac Exam: [Normal S1 and S2, no S3 gallop, no murmur.] Abdomen: [Soft, nontender, no megaly, no rebound, no guarding, normal bowel sounds.] Extremities: [No clubbing, no edema, no cyanosis.], Good pulses bilaterally Neurological Exam: Could not assess patient is sedated, on propofol. Psychiatric: Could not assess Skin: No rashes, multiple tattoos noted all over. - Labs CBC & Chem 7: 04/06/23 04:01 04/06/23 04:01 Labs: Abnormal Lab Results - Last 24 Hours (Table) 04/04/23 04/05/23 04/05/23 Range/Units 22:45 08:25 11:40 WBC (3.8-10.6) k/uL RBC (3.80-5.40) m/uL Hgb (11.4-16.0) gm/dL Hct (34.0-46.0) % MCHC (31.0-37.0) g/dL RDW (11.5-15.5) % Neutrophils # (1.3-7.7) k/uL Lymphocytes # (1.0-4.8) k/uL ABG pH (7.35-7.45) ABG pCO2 (35-45) mmHg ABG pO2 (83-108) mmHg ABG O2 Saturation (94-97) % Sodium (137-145) mmol/L Chloride (98-107) mmol/L Carbon Dioxide (22-30) mmol/L BUN (7-17) mg/dL Creatinine (0.52-1.04) mg/dL POC Glucose (mg/dL) 114 H (70-110) mg/dL Calcium (8.4-10.2) mg/dL U Benzodiazepines Scrn Positive A Detected H (Negative) 04/06/23 04/06/23 04/06/23 Range/Units 04:01 04:01 05:46 WBC 12.5 H (3.8-10.6) k/uL RBC 3.12 L (3.80-5.40) m/uL Hgb 8.0 L D (11.4-16.0) gm/dL Hct 26.3 L (34.0-46.0) % MCHC 30.4 L (31.0-37.0) g/dL RDW 19.2 H (11.5-15.5) % Neutrophils # 10.7 H (1.3-7.7) k/uL Lymphocytes # 0.7 L (1.0-4.8) k/uL ABG pH 7.47 H (7.35-7.45) ABG pCO2 32 L (35-45) mmHg ABG pO2 134 H (83-108) mmHg ABG O2 Saturation 99.6 H (94-97) % Sodium 135 L (137-145) mmol/L Chloride 108 H (98-107) mmol/L Carbon Dioxide 21 L (22-30) mmol/L BUN 23 H (7-17) mg/dL Creatinine 1.36 H (0.52-1.04) mg/dL POC Glucose (mg/dL) (70-110) mg/dL Calcium 7.1 L (8.4-10.2) mg/dL U Benzodiazepines Scrn (Negative) 04/06/23 Range/Units 06:16 WBC (3.8-10.6) k/uL RBC (3.80-5.40) m/uL Hgb (11.4-16.0) gm/dL Hct (34.0-46.0) % MCHC (31.0-37.0) g/dL RDW (11.5-15.5) % Neutrophils # (1.3-7.7) k/uL Lymphocytes # (1.0-4.8) k/uL ABG pH (7.35-7.45) ABG pCO2 (35-45) mmHg ABG pO2 (83-108) mmHg ABG O2 Saturation (94-97) % Sodium (137-145) mmol/L Chloride (98-107) mmol/L Carbon Dioxide (22-30) mmol/L BUN (7-17) mg/dL Creatinine (0.52-1.04) mg/dL POC Glucose (mg/dL) 112 H (70-110) mg/dL Calcium (8.4-10.2) mg/dL U Benzodiazepines Scrn (Negative) Microbiology - Last 24 Hours (Table) 04/05/23 02:15 Gram Stain - Preliminary Sputum Assessment and Plan Assessment: Impression: Acute alcohol withdrawal, acute delirium tremens, requiring intubation and mechanical ventilation Acute respiratory failure, secondary to acute delirium tremens requiring intubation mostly to protect his airways Acute aspiration pneumonia is strongly suspected History of alcohol abuse acute leukocytosis secondary to above Recommendation: Could consider a weaning trial today, however the patient has to be off propofol and I will utilize Precedex instead. Assessment of mental status after patient is weaned off propofol. Consider pressure support and CPAP trial if the patient does not get extremely agitated and his agitation is fairly well-controlled with Precedex. In the meantime, Continue ventilatory support, adjust ventilator settings accordingly Continue nutritional support/enteral feeding GI and DVT prophylaxis No need for central line placement since his hemodynamics are improved today compared to yesterday. And that improved with mostly fluid boluses. Check cultures including sputum cultures and blood cultures Continue Zosyn empirically for aspiration pneumonia Continue to monitor in the ICU Patient is critically ill Critical care time is over 30 min We will continue to follow Time with Patient: Greater than 30
--- NOTE | 2023-04-06 15:32 | US ---
EXAMINATION TYPE: US venous doppler duplex UE RT DATE OF EXAM: 04/06/2023 COMPARISON: NONE CLINICAL INDICATION: Female, 57 years old with history of RUE edema; edema in right arm on intubated ICU patient SIDE PERFORMED: Right Right Arm: Negative for DVT internal echoes that did not compress within cephalic v and basilic v i n upper right arm IMPRESSION: 1. Right upper extremity ultrasound negative for deep venous thrombosis. 2. There appears to be some superficial venous thrombosis within the cephalic and basilic veins.
[2023-04-06 15:41] LABS: ABG Base Excess -0.6 mmol/L; ABG HCO3 23 mmol/L (21-25); ABG Oxygen Saturation 99.9 % (94-97); ABG PCO2 33 mmHg (35-45); ABG PH 7.45 (7.35-7.45); ABG PO2 145 mmHg (83-108); ABG TCO2 24 mmol/L (19-24); Allen Test Performed? Yes
[2023-04-06] MEDS ORDERED: FUROSEMIDE 10 MG/ML 4 ML VIAL IV STA (18:31)
[2023-04-06] MEDS: hydrALAZINE HCL 20 MG/ML 1 ML VIAL IVP PRN (19:51)
[2023-04-06] MEDS: LORazepam 2 MG/ML INJ IV PRN (20:45)
[2023-04-06] MEDS ORDERED: METOPROLOL TARTRATE 5 MG/5 ML VIAL IVP ONE (21:15)
[2023-04-07] MEDS: LORazepam 2 MG/ML INJ IV PRN (00:33)
[2023-04-07] MEDS: DEXMEDETOMIDINE/0.9% NACL(PMX) 400 MCG in EMPTY BAG 1 BAG IV SCH (03:27)
[2023-04-07 06:10] LABS: Anisocytosis Slight; Basophils % (A) 0 %; Eosinophils # (A) 0.1 k/uL (0-0.7); Eosinophils % (A) 1 %; HCT 25.9 % (34.0-46.0); HGB 8.2 gm/dL (11.4-16.0); Hypochromasia Marked; Lymphocytes # (A) 0.7 k/uL (1.0-4.8); Lymphocytes % (A) 7 %; MCH 26.1 pg (25.0-35.0); MCHC 31.5 g/dL (31.0-37.0); MCV 82.7 fL (80.0-100.0); Mean Platelet Volume 9.1; Microcytosis Slight; Monocytes # (A) 0.5 k/uL (0-1.0); Monocytes % (A) 5 %; Neutrophils # (A) 8.8 k/uL (1.3-7.7); Neutrophils % (A) 85 %; Platelet Count 263 k/uL (150-450); RBC 3.13 m/uL (3.80-5.40); RDW 19.5 % (11.5-15.5); WBC 10.4 k/uL (3.8-10.6)
[2023-04-07 06:24] LABS: African American GFR (CKD) 65 (>60 ml/min/1.73 sqM); Anion Gap 11 mmol/L; Blood Urea Nitrogen 13 mg/dL (7-17); Calcium 7.9 mg/dL (8.4-10.2); Carbon Dioxide 24 mmol/L (22-30); Chloride 105 mmol/L (98-107); Glucose 92 mg/dL (74-99); Non-African American GFR(CKD) 56 (>60 ml/min/1.73 sqM); Potassium 3.5 mmol/L (3.5-5.1); Sodium 140 mmol/L (137-145)
[2023-04-07] MEDS ORDERED: POTASSIUM CHLORIDE 10 MEQ in WATER FOR INJECTION 1 100ML.BAG IVPB SCH (06:30)
[2023-04-07 06:37] LABS: Glucose,Whole Blood 100 mg/dL (70-110)
[2023-04-07] MEDS: POTASSIUM CHLORIDE 10 MEQ in WATER FOR INJECTION 1 100ML.BAG IVPB SCH ×6 (06:39→18:11)
--- NOTE | 2023-04-07 06:56 | XR ---
EXAMINATION TYPE: XR chest 1V portable DATE OF EXAM: 04/07/2023 5:19 AM COMPARISON: Chest radiographs from 04/06/2023 TECHNIQUE: XR chest 1V portable Portable AP radiograph of the chest. CLINICAL INDICATION:Female, 57 years old with history of Tube placement; FINDINGS: Lungs/Pleura: There is no evidence of pleural effusion, focal consolidation, or pneumothorax. Pulmonary vascularity: Pulmonary vascular congestion. Heart/mediastinum: Cardiomediastinal silhouette is enlarged and stable. Musculoskeletal: No acute osseous pathology. Other findings: None Lines/Tubes: Interval removal of enteric and endotracheal tubes. IMPRESSION: 1. Interval removal of endotracheal and enteric tubes. 2. Cardiomegaly and mild pulmonary vascular congestion. Correlate with BNP for congestive heart fail ure.
[2023-04-07] MEDS: AMPICILLIN-SULBACTAM 3 GM in SODIUM CHLORIDE 0.9% 100 ML IVPB SCH ×5 (07:55→23:58)
[2023-04-07] MEDS: THIAMINE 100 MG TAB PO SCH (08:02)
[2023-04-07] MEDS: ENOXAPARIN 40 MG/0.4 ML SYRINGE SQ SCH (08:12)
[2023-04-07] MEDS: PANTOPRAZOLE 40 MG/10 ML VIAL IVP SCH ×2 (08:35→19:48)
--- NOTE | 2023-04-07 11:29 | P.PN ---
Subjective Progress Note Date: 04/07/23 Principal diagnosis: Acute alcohol withdrawal This is a 57-year-old biological female, identified as a mail, sent by [place] for suspected alcohol withdrawal and confusion/altered mental status. She has long-standing history of alcohol abuse, drinks on the average of one half pint to 1. pint of hard liquor daily. Apparently had last drink was 36 hours prior, while at [place] patient was noted to be confused and hallucinating and shaky. Blood pressure was also noted to be elevated, patient was sent to [facility], and apparently CT of the brain showed no evidence of active process, patient was admitted to the floor, and he required significa nt amount of Ativan for sedation to the point that the patient was difficult to arouse, and could not protect her airways. Patient was transferred to the ICU intubated, mechanically ventilated, and we were asked to see the patient on consultation. Patient is on assist control rate of 2010 volume 400 FiO2 was 60% and PEEP of 5 after reviewing ABG showed a pO2 of 243 pCO2 32 pH of 7.49 I changed the rate down to 18 FiO2 down to 45%. And increased the flow rate up to 65 L/m. Patient is on propofol at 15 mcg/kg/m also on IV fluids 75 mL of 0.9 normal saline at an an hour. Blood pressure is marginal urine output is poor, hence I recommended 2 L of fluid boluses given shortly after I evaluated the patient in the ICU. Not much history could be obtained from the patient. Labs showed relatively normal CBC is relatively normal electrolytes are relatively normal renal profile drug screen mostly positive for benzodiazepines. tone and 1.55 CT angiogram of the chest showed atelectasis/infiltrates, most likely consistent with aspiration pneumonia Reevaluated today 04/06/23, patient remains in the ICU intubated and mechanically ventilated. Patient is on assist control rate of 18 tidal volume 400 FiO2 45% PEEP of 5 remains on propofol at 35 mcg/kg/m. IV fluids 75 mL of 0.9 normal saline per hour. ABG showed a pO2 of 134 pCO2 32 pH of 7.47. Chest x-ray showed small left pleural effusion and right basilar atelectasis/infiltrates. WBC count is 12.5 hemoglobin is 8 basic metabolic p rofile is normal. BUN is 23 creatinine 1.36. Patient did receive significant amount of fluids over the last 24 hours. Urine output remains marginal. Hence more fluids will be given today the meantime I plan to discontinue sedation and give the patient hopefully a weaning trial today, but considering the patient's presentation and history of alcohol abuse as well as alcohol withdrawal, I'm planning to use Precedex to replace propofol and gradually wean off propofol and give the patient a trial of weaning after a trial of pressure support and CPAP. In the meantime continue antibiotics. And continue GI and DVT prophylaxis Reevaluated today on 04/07/2023, patient remains in the ICU was extubated yesterday. He developed some fluid overload last night, and he required Lasix. He was on 10 L high flow nasal cannula night and now he is down to 2 L. Blood pressure is elevated and he received hydralazine. Remains on Unasyn for presumptive aspiration pneumonia. Remains on Precedex. IV fluids at KVO, continues to receive Ativan as needed. Patient had a T-max of 100.5, and we strongly suspected that the patient may have aspirated. Chest x-ray continues to show left basilar and right basilar infiltrate/atelectasis might also showed some prominence of the pulmonary vasculature and sitting his mental status and I plan to keep the patient in the ICU because of history of alcohol withdrawal and is still requiring Precedex as well as Ativan. Labs today WBC is 10.4 hemoglobin 8.2 basic metabolic profile is normal creatinine 1.11 by significantly improved compared to yesterday creatinine of 1.36 Objective - Vital Signs Vital signs: Vital Signs Temp 100 F H 04/07/23 08:00 Pulse 71 04/07/23 11:00 Resp 18 04/07/23 11:00 BP 130/76 04/07/23 11:00 Pulse Ox 98 04/07/23 11:00 FiO2 45 04/06/23 16:00 Intake & Output 04/06/23 04/07/23 04/07/23 18:59 06:59 18:59 Intake Total 1149.891 410.256 500.092 Output Total 1095 3805 310 Balance 54.891 -3394.744 190.092 Intake: IV 960 360 160 Ampicillin-Sulbactam 3 gm 200 100 100 In Sodium Chloride 0.9% 100 ml @ 200 mls/hr IVPB Q8HR [facility] Rx#:[id number] KVO 10 130 50 Sodium Chloride 0.9% 1, 750 130 10 000 ml @ 75 mls/hr IV . [id number] [facility] Rx#:[id number] Intake, IV Titration 119.891 50.256 340.092 Amount Dexmedetomidine/0.9% NaCl 21.180 50.256 40.092 (Pmx) 400 mcg In Empty Bag 1 bag @ 0.2 MCG/KG/HR 4.25 mls/hr IV .[id number] [facility] Rx#:[id number] Potassium Chloride 10 meq 300 In Water For Injection 1 100ml.bag @ 100 mls/hr IVPB Q1HR [facility] Rx#: [id number] propofoL 1,000 mg In 98.711 Empty Bag 1 bag @ 15 MCG/ KG/MIN 7.144 mls/hr IV . Q14H [facility] Rx#:[id number] Tube Feeding 40 0 0 Other 30 Output: Urine 1095 3805 310 Other: Voiding Method Indwelling Catheter Indwelling Catheter Indwelling Catheter - Exam Physical Exam: Revealed 57-year-old in no distress, on 2 L nasal cannula Head: Atraumatic, normocephalic. HEENT:[Neck is supple.] [No neck masses.] [No thyromegaly.] [No JVD.] Chest: [[employer] chest expansion diminished breath sounds at the bases no crackles or rhonchi or wheezes Cardiac Exam: [Normal S1 and S2, no S3 gallop, no murmur.] Abdomen: [Soft, nontender, no megaly, no rebound, no guarding, normal bowel sounds.] Extremities: [No clubbing, no edema, no cyanosis.], Good pulses bilaterally Neurological Exam: Patient is arousable, opens eyes, follows simple instructions seems to be generally weak and relatively lethargic Psychiatric: Could not assess because of his lethargy but arousable and follows very simple instructions like wiggling toes, squeezing hands, and sticking out tongue . Skin: No rashes, multiple tattoos noted all over. - Labs CBC & Chem 7: 04/07/23 05:26 04/07/23 05:26 Labs: Abnormal Lab Results - Last 24 Hours (Table) 04/06/23 04/07/23 04/07/23 Range/Units 15:39 05:26 05:26 RBC 3.13 L (3.80-5.40) m/uL Hgb 8.2 L (11.4-16.0) gm/dL Hct 25.9 L (34.0-46.0) % RDW 19.5 H (11.5-15.5) % Neutrophils # 8.8 H (1.3-7.7) k/uL Lymphocytes # 0.7 L (1.0-4.8) k/uL ABG pCO2 33 L (35-45) mmHg ABG pO2 145 H (83-108) mmHg ABG O2 Saturation 99.9 H (94-97) % Creatinine 1.11 H (0.52-1.04) mg/dL Calcium 7.9 L (8.4-10.2) mg/dL Microbiology - Last 24 Hours (Table) 04/05/23 02:15 Gram Stain - Final Sputum Sputum Culture - Final 04/05/23 02:36 Blood Culture - Preliminary Blood Assessment and Plan Assessment: Impression: Acute alcohol withdrawal, acute delirium tremens, requiring intubation and mechanical ventilation Acute respiratory failure, secondary to acute delirium tremens requiring intubation mostly to protect his airways Acute aspiration pneumonia is strongly suspected History of alcohol abuse acute leukocytosis secondary to above Recommendation: Patient tolerated extubation over the last 24 hours Continue oxygen and titrate accordingly Continue incentive spirometry Continue antibiotics Continue to monitor in the ICU for now. We will continue to follow Continue Precedex and continue Ativan as needed Time with Patient: Less than 30
--- NOTE | 2023-04-07 11:47 | P.PN ---
Subjective Progress Note Date: 04/07/23 No new complaints today. Rec'd 2 x 1mg pushes of ativan last night. Precedex weaned to 0.1 per nursing. Gen: Asleep, arousable HEENT: normocephalic, atraumatic, good hearing acuity, moist mucous membranes Resp: good air exchange, breathing comfortably with no accessory muscle use CVS: good distal perfusion x 4, GI: soft, NTTP, ND : no SPT, no CVAT, rojo catheter is present MSK: no pitting edema, no clubbing Neuro: non-focal, moving all extremities Hospital course: Patient is a 57-year-old biological female, identified as a male, who was sent in by [place] for suspected alcohol withdrawal with confusion. Patient reports long-standing history of alcohol abuse drinking a half to 1 pint of hard liquor daily. Patient's last drink was reportedly 36 hours ago. At [place], he was noted to be increasingly confused, hallucinating, and somewhat shaky. The patient's blood pressure was also noted to be high. At the time of interview, the patient does not sure why he is at the hospital and says that he feels fine. Denied experiencing chest discomfort, shortness of breath, fever, chills, cough, nausea, vomiting, abdominal pain, diarrhea. In the emergency room, laboratory evaluation revealed hemoglobin of 10.8 with platelet count 245, Na 141, potassium 3.8, creatinine 1.24, magnesium 1.2, AST 51, and albumin 3.4. Patient was placed on CIWA protocol and given Ativan as needed for alcohol withdrawal. 04/03 Patient is confused. He thinks it's December. He believes he is in [place]. Attempting to get out of bed but re-directable. Given 10 mg IV ativan over the past 24H. 04/04 Patient was seen and examined. He is extremely restless today. Retaining > 600 cc urine on bladder scan. SBP consistently in the 200s. He was given 2 doses of Hydralazine 10 mg IV for hypertension. He also has low grade fevers. BMP Na 135, bicarb 18. Mag 1.3. B12 1699. Folate 13.9. TSH 2.2. Ammonia 10. 04/05 Mentation continued to worsen overnight. He was found to be minimally responsive and newly hypoxic saturating 80's on 4-6L NC. Incremental doses of flumazelin was given with minimal improvement. ABG showed pO2 of 40. D-Dimer elevated at 2.0. CTA chest was ordered which was negative for PE but findings of aspiration pneumonia. CT brain negative for acute pathology. He was eventually intubated to protect his airway and moved to ICU. This morning he is febrile with Tmax 103.1, hypotensive with BP 85/49, RR 28, saturating 99% on mechanical ventilation. Propofol at 20 mcg/kg/min for sedation. Unasyn started for aspiration PNA. 04/06 Patient continues to be intubated. He was on levophed overnight for hypotension for a short period of time which has been weaned off this morning. CBC WBC 12.5, Hg 8. ABG pH 7.47, pCO2 32. BMP Na 135, Cl 108, bicarb 21, BUN 23, Cr 1.36, Ca 7.1. Procal elevated at 1.55. CXR shows right lower lobe infiltrate. Antibiotics include Unasyn for coverage of aspiration PNA. Sedated with propofol. Assessment/plan: Acute hypoxic respiratory failure Sepsis due to aspiration pneumonia -Continue antibiotics: Unasyn 3 g every 8 hours -No need for pressors -Gram stain reviewed, shows polymicrobial zoraida, speciation pending -Blood culture reviewed, no growth to date -CBC reviewed, no white blood cell count Acute metabolic encephalopathy Delirium tremens -Remains on Precedex at 0.1 -Ativan when necessary Acute kidney injury secondary to hypotension Urinary retention -Rojo catheter is in place -Creatinine reviewed, improving to 1.11 -Hypotension has resolved Normocytic anemia Hypomagnesemia -Medications have been reconciled Patient is full code Objective - Vital Signs Vital signs: Vital Signs Temp 100 F H 04/07/23 08:00 Pulse 71 04/07/23 11:00 Resp 18 04/07/23 11:00 BP 130/76 04/07/23 11:00 Pulse Ox 98 04/07/23 11:00 FiO2 45 04/06/23 16:00 Intake & Output 04/06/23 04/07/23 04/07/23 18:59 06:59 18:59 Intake Total 1149.891 410.256 500.092 Output Total 1095 3805 310 Balance 54.891 -3394.744 190.092 Intake: IV 960 360 160 Ampicillin-Sulbactam 3 gm 200 100 100 In Sodium Chloride 0.9% 100 ml @ 200 mls/hr IVPB Q8HR [facility] Rx#:[id number] KVO 10 130 50 Sodium Chloride 0.9% 1, 750 130 10 000 ml @ 75 mls/hr IV . [id number] [facility] Rx#:[id number] Intake, IV Titration 119.891 50.256 340.092 Amount Dexmedetomidine/0.9% NaCl 21.180 50.256 40.092 (Pmx) 400 mcg In Empty Bag 1 bag @ 0.2 MCG/KG/HR 4.25 mls/hr IV .[id number] [facility] Rx#:[id number] Potassium Chloride 10 meq 300 In Water For Injection 1 100ml.bag @ 100 mls/hr IVPB Q1HR [facility] Rx#: [id number] propofoL 1,000 mg In 98.711 Empty Bag 1 bag @ 15 MCG/ KG/MIN 7.144 mls/hr IV . Q14H [facility] Rx#:[id number] Tube Feeding 40 0 0 Other 30 Output: Urine 1095 3805 310 Other: Voiding Method Indwelling Catheter Indwelling Catheter Indwelling Catheter - Labs CBC & Chem 7: 04/07/23 05:26 04/07/23 05:26 Labs: Abnormal Lab Results - Last 24 Hours (Table) 04/06/23 04/07/23 04/07/23 Range/Units 15:39 05:26 05:26 RBC 3.13 L (3.80-5.40) m/uL Hgb 8.2 L (11.4-16.0) gm/dL Hct 25.9 L (34.0-46.0) % RDW 19.5 H (11.5-15.5) % Neutrophils # 8.8 H (1.3-7.7) k/uL Lymphocytes # 0.7 L (1.0-4.8) k/uL ABG pCO2 33 L (35-45) mmHg ABG pO2 145 H (83-108) mmHg ABG O2 Saturation 99.9 H (94-97) % Creatinine 1.11 H (0.52-1.04) mg/dL Calcium 7.9 L (8.4-10.2) mg/dL Microbiology - Last 24 Hours (Table) 04/05/23 02:15 Gram Stain - Final Sputum Sputum Culture - Final 04/05/23 02:36 Blood Culture - Preliminary Blood
[2023-04-07] MEDS: hydrALAZINE HCL 20 MG/ML 1 ML VIAL IVP PRN (13:05)
[2023-04-07] MEDS ORDERED: LABETALOL 5 MG/ML VIAL MDV IVP PRN (14:26)
[2023-04-07] MEDS ORDERED: cloNIDine 0.2 MG/24HR PATCH TRANSDERM SCH (14:30)
[2023-04-07] MEDS: CLEVIDIPINE BUTYRATE 25 MG in EMPTY BAG 1 BAG IV SCH ×2 (17:54→21:28)
[2023-04-07 18:09] LABS: Glucose,Whole Blood 106 mg/dL (70-110)
--- NOTE | 2023-04-07 20:25 | XR ---
EXAMINATION TYPE: XR chest 1V portable DATE OF EXAM: 04/07/2023 COMPARISON: 04/07/2023 INDICATION: Increasing O2 demands respiratory distress TECHNIQUE: Single frontal view of the chest is obtained. FINDINGS: The heart size is normal. The pulmonary vasculature is normal. Bibasilar infiltrates are present, larger on the left. Findings are worsening over the interval. IMPRESSION: 1. Bibasilar infiltrates more so on the left. Correlate for atelectasis and pneumonia
[2023-04-07] MEDS: NOREPINEPHRINE 4 MG in SODIUM CHLORIDE 0.9% 250 ML IV SCH (21:06)
[2023-04-08] MEDS: CLEVIDIPINE BUTYRATE 25 MG in EMPTY BAG 1 BAG IV SCH ×3 (02:46→14:01)
[2023-04-08 05:39] LABS: Anisocytosis Slight; Basophils % (A) 0 %; Eosinophils # (A) 0.2 k/uL (0-0.7); Eosinophils % (A) 1 %; HCT 28.7 % (34.0-46.0); Hypochromasia Marked; Lymphocytes # (A) 0.7 k/uL (1.0-4.8); Lymphocytes % (A) 5 %; MCHC 31.2 g/dL (31.0-37.0); MCV 83.2 fL (80.0-100.0); Mean Platelet Volume 8.8; Microcytosis Slight; Monocytes # (A) 0.6 k/uL (0-1.0); Monocytes % (A) 5 %; Neutrophils # (A) 10.9 k/uL (1.3-7.7); Neutrophils % (A) 87 %; Platelet Count 313 k/uL (150-450); RBC 3.45 m/uL (3.80-5.40); RDW 19.4 % (11.5-15.5); WBC 12.6 k/uL (3.8-10.6)
[2023-04-08 06:02] LABS: African American GFR (CKD) 74 (>60 ml/min/1.73 sqM); Anion Gap 14 mmol/L; Blood Urea Nitrogen 11 mg/dL (7-17); Calcium 8.3 mg/dL (8.4-10.2); Carbon Dioxide 23 mmol/L (22-30); Chloride 103 mmol/L (98-107); Glucose 107 mg/dL (74-99); Magnesium 1.4 mg/dL (1.6-2.3); Non-African American GFR(CKD) 65 (>60 ml/min/1.73 sqM); Potassium 3.7 mmol/L (3.5-5.1); Sodium 140 mmol/L (137-145)
[2023-04-08] MEDS: MAGNESIUM SULFATE-D5W PMX 1 GM in DEXTROSE/WATER 1 100ML.BAG IVPB SCH ×2 (06:19→07:02)
[2023-04-08] MEDS ORDERED: POTASSIUM CHLORIDE ER 20 MEQ TAB.ER PO SCH (07:00)
--- NOTE | 2023-04-08 07:52 | XR ---
EXAMINATION TYPE: XR chest 1V portable DATE OF EXAM: 04/08/2023 6:32 AM CLINICAL INDICATION:Female, 57 years old with history of aspiration pneumonia; [facility] COMPARISON: Chest radiographs from 04/07/2023 TECHNIQUE: XR chest 1V portable Frontal view of the chest. FINDINGS: Lungs/Pleura: Similar multifocal airspace opacities in the bilateral lower lobes. No evidence of pneu mothorax or pleural effusion. Pulmonary vascularity: Unremarkable. Heart/mediastinum: Cardiomediastinal silhouette is unremarkable. Musculoskeletal: No acute osseous pathology. IMPRESSION: Multifocal airspace opacities concerning for pneumonia.
[2023-04-08] MEDS: AMPICILLIN-SULBACTAM 3 GM in SODIUM CHLORIDE 0.9% 100 ML IVPB SCH ×3 (08:14→23:20)
[2023-04-08] MEDS: PANTOPRAZOLE 40 MG/10 ML VIAL IVP SCH ×2 (08:15→20:22)
[2023-04-08] MEDS: THIAMINE 100 MG TAB PO SCH (08:15)
[2023-04-08] MEDS: ENOXAPARIN 40 MG/0.4 ML SYRINGE SQ SCH (08:15)
[2023-04-08] MEDS: METOPROLOL TARTRATE 25 MG TAB PO SCH ×2 (10:03→20:21)
[2023-04-08] MEDS: amLODIPine 5 MG TAB PO SCH ×2 (10:03→20:21)
--- NOTE | 2023-04-08 10:54 | P.PN ---
Subjective Progress Note Date: 04/08/23 No new complaints today. Rec'd 1 x 1mg pushes of ativan last night. Precedex weaned off per nursing. BPs have been high yesterday and pt was started on a clevidipine gtt, now runnnig at 4 Gen: Asleep, arousable HEENT: normocephalic, atraumatic, good hearing acuity, moist mucous membranes Resp: good air exchange, breathing comfortably with no accessory muscle use CVS: good distal perfusion x 4, GI: soft, NTTP, ND : no SPT, no CVAT, rojo catheter is present MSK: no pitting edema, no clubbing Neuro: non-focal, moving all extremities Hospital course: Patient is a 57-year-old biological female, identified as a male, who was sent in by [facility] for suspected alcohol withdrawal with confusion. Patient reports long-standing history of alcohol abuse drinking a half to 1 pint of hard liquor daily. Patient's last drink was reportedly 36 hours ago. At [facility], he was noted to be increasingly confused, hallucinating, and somewhat shaky. The patient's blood pressure was also noted to be high. At the time of interview, the patient does not sure why he is at the hospital and says that he feels fine. Denied experiencing chest discomfort, shortness of breath, fever, chills, cough, nausea, vomiting, abdominal pain, diarrhea. In the emergency room, laboratory evaluation revealed hemoglobin of 10.8 with platelet count 245, Na 141, potassium 3.8, creatinine 1.24, magnesium 1.2, AST 51, and albumin 3.4. Patient was placed on CIWA protocol and given Ativan as needed for alcohol withdrawal. 04/03 Patient is confused. He thinks it's December. He believes he is in [place]. Attempting to get out of bed but re-directable. Given 10 mg IV ativan over the past 24H. 04/04 Patient was seen and examined. He is extremely restless today. Retaining > 600 cc urine on bladder scan. SBP consistently in the 200s. He was given 2 doses of Hydralazine 10 mg IV for hypertension. He also has low grade fevers. BMP Na 135, bicarb 18. Mag 1.3. B12 1699. Folate 13.9. TSH 2.2. Ammonia 10. 04/05 Mentation continued to worsen overnight. He was found to be minimally responsive and newly hypoxic saturating 80's on 4-6L NC. Incremental doses of flumazelin was given with minimal improvement. ABG showed pO2 of 40. D-Dimer elevated at 2.0. CTA chest was ordered which was negative for PE but findings of aspiration pneumonia. CT brain negative for acute pathology. He was eventually intubated to protect his airway and moved to ICU. This morning he is febrile with Tmax 103.1, hypotensive with BP 85/49, RR 28, saturating 99% on mechanical ventilation. Propofol at 20 mcg/kg/min for sedation. Unasyn started for aspiration PNA. 04/06 Patient continues to be intubated. He was on levophed overnight for hypotension for a short period of time which has been weaned off this morning. CBC WBC 12.5, Hg 8. ABG pH 7.47, pCO2 32. BMP Na 135, Cl 108, bicarb 21, BUN 23, Cr 1.36, Ca 7.1. Procal elevated at 1.55. CXR shows right lower lobe infiltrate. Antibiotics include Unasyn for coverage of aspiration PNA. Sedated with propofol. Assessment/plan: Acute hypoxic respiratory failure Sepsis due to aspiration pneumonia -Continue antibiotics: Unasyn 3 g every 8 hours -No need for pressors -Gram stain reviewed, shows polymicrobial zoraida, speciation shows normal respiratory zoraida -Blood culture reviewed, no growth to date -CBC reviewed, no white blood cell count HTN urgency - remains of clevidipine - started on amlodipine 5mg BID - started on lisinopril 10mg daily - discontinue clonidine patch now that patient can tolerate orals - agree with metoprolol 25mg daily Acute metabolic encephalopathy Delirium tremens -Ativan when necessary Acute kidney injury secondary to hypotension Urinary retention -Rojo catheter is in place -Creatinine reviewed, improving to 1.11 -Hypotension has resolved Normocytic anemia Hypomagnesemia -Medications have been reconciled Patient is full code Objective - Vital Signs Vital signs: Vital Signs Temp 98.2 F 04/08/23 08:00 Pulse 103 H 04/08/23 10:00 Resp 16 04/08/23 10:00 BP 154/91 04/08/23 10:00 Pulse Ox 94 L 04/08/23 10:00 FiO2 45 04/06/23 16:00 Intake & Output 04/07/23 04/08/23 04/08/23 18:59 06:59 18:59 Intake Total 780.692 428.833 590.333 Output Total 810 1055 180 Balance -29.308 -626.167 410.333 Weight 78 kg Intake: IV 330 210 340 Ampicillin-Sulbactam 3 gm 200 100 100 In Sodium Chloride 0.9% 100 ml @ 200 mls/hr IVPB Q8HR [facility] Rx#:[id number] KVO 120 110 40 Magnesium Sulfate-D5w Pmx 200 1 gm In Dextrose/Water 1 100ml.bag @ 100 mls/hr IVPB Q1H [facility] Rx#: [id number] Sodium Chloride 0.9% 1, 10 000 ml @ 75 mls/hr IV . [id number] [facility] Rx#:[id number] Intake, IV Titration 450.692 218.833 0.333 Amount Clevidipine Butyrate 25 10.600 118.833 0.333 mg In Empty Bag 1 bag @ 1 MG/HR 2 mls/hr IV .Q24H [facility] Rx#:[id number] Dexmedetomidine/0.9% NaCl 40.092 (Pmx) 400 mcg In Empty Bag 1 bag @ 0.2 MCG/KG/HR 4.25 mls/hr IV .[id number] [facility] Rx#:[id number] Potassium Chloride 10 meq 100 100 In Water For Injection 1 100ml.bag @ 100 mls/hr IVPB Q1H [facility] Rx#: [id number] Potassium Chloride 10 meq 300 In Water For Injection 1 100ml.bag @ 100 mls/hr IVPB Q1HR [facility] Rx#: [id number] Oral 0 250 Tube Feeding 0 Output: Urine 810 1055 180 Other: Voiding Method Indwelling Catheter Indwelling Catheter Indwelling Catheter - Labs CBC & Chem 7: 04/08/23 05:06 04/08/23 05:06 Labs: Abnormal Lab Results - Last 24 Hours (Table) 04/08/23 04/08/23 Range/Units 05:06 05:06 WBC 12.6 H (3.8-10.6) k/uL RBC 3.45 L (3.80-5.40) m/uL Hgb 9.0 L (11.4-16.0) gm/dL Hct 28.7 L (34.0-46.0) % RDW 19.4 H (11.5-15.5) % Neutrophils # 10.9 H (1.3-7.7) k/uL Lymphocytes # 0.7 L (1.0-4.8) k/uL Glucose 107 H (74-99) mg/dL Calcium 8.3 L (8.4-10.2) mg/dL Magnesium 1.4 L (1.6-2.3) mg/dL Microbiology - Last 24 Hours (Table) 04/05/23 02:36 Blood Culture - Preliminary Blood 04/05/23 02:15 Gram Stain - Final Sputum Sputum Culture - Final
[2023-04-08 11:28] VITALS: BMI 26.9
--- NOTE | 2023-04-08 11:47 | P.PN ---
Subjective Progress Note Date: 04/08/23 Principal diagnosis: Acute alcohol withdrawal This is a 57-year-old biological female, identified as a mail, sent by [facility] for suspected alcohol withdrawal and confusion/altered mental status. She has long-standing history of alcohol abuse, drinks on the average of one half pint to 1. pint of hard liquor daily. Apparently had last drink was 36 hours prior, while at [facility] patient was noted to be confused and hallucinating and shaky. Blood pressure was also noted to be elevated, patient was sent to [facility], and apparently CT of the brain showed no evidence of active process, patient was admitted to the floor, and he required significa nt amount of Ativan for sedation to the point that the patient was difficult to arouse, and could not protect her airways. Patient was transferred to the ICU intubated, mechanically ventilated, and we were asked to see the patient on consultation. Patient is on assist control rate of 2010 volume 400 FiO2 was 60% and PEEP of 5 after reviewing ABG showed a pO2 of 243 pCO2 32 pH of 7.49 I changed the rate down to 18 FiO2 down to 45%. And increased the flow rate up to 65 L/m. Patient is on propofol at 15 mcg/kg/m also on IV fluids 75 mL of 0.9 normal saline at an an hour. Blood pressure is marginal urine output is poor, hence I recommended 2 L of fluid boluses given shortly after I evaluated the patient in the ICU. Not much history could be obtained from the patient. Labs showed relatively normal CBC is relatively normal electrolytes are relatively normal renal profile drug screen mostly positive for benzodiazepines. tone and 1.55 CT angiogram of the chest showed atelectasis/infiltrates, most likely consistent with aspiration pneumonia Reevaluated today 04/06/23, patient remains in the ICU intubated and mechanically ventilated. Patient is on assist control rate of 18 tidal volume 400 FiO2 45% PEEP of 5 remains on propofol at 35 mcg/kg/m. IV fluids 75 mL of 0.9 normal saline per hour. ABG showed a pO2 of 134 pCO2 32 pH of 7.47. Chest x-ray showed small left pleural effusion and right basilar atelectasis/infiltrates. WBC count is 12.5 hemoglobin is 8 basic metabolic p rofile is normal. BUN is 23 creatinine 1.36. Patient did receive significant amount of fluids over the last 24 hours. Urine output remains marginal. Hence more fluids will be given today the meantime I plan to discontinue sedation and give the patient hopefully a weaning trial today, but considering the patient's presentation and history of alcohol abuse as well as alcohol withdrawal, I'm planning to use Precedex to replace propofol and gradually wean off propofol and give the patient a trial of weaning after a trial of pressure support and CPAP. In the meantime continue antibiotics. And continue GI and DVT prophylaxis Reevaluated today on 04/07/2023, patient remains in the ICU was extubated yesterday. He developed some fluid overload last night, and he required Lasix. He was on 10 L high flow nasal cannula night and now he is down to 2 L. Blood pressure is elevated and he received hydralazine. Remains on Unasyn for presumptive aspiration pneumonia. Remains on Precedex. IV fluids at KVO, continues to receive Ativan as needed. Patient had a T-max of 100.5, and we strongly suspected that the patient may have aspirated. Chest x-ray continues to show left basilar and right basilar infiltrate/atelectasis might also showed some prominence of the pulmonary vasculature and sitting his mental status and I plan to keep the patient in the ICU because of history of alcohol withdrawal and is still requiring Precedex as well as Ativan. Labs today WBC is 10.4 hemoglobin 8.2 basic metabolic profile is normal creatinine 1.11 by significantly improved compared to yesterday creatinine of 1.36 3 today on 04/08/2023, patient remains in the ICU, tolerated the extubation well over the last 2 days. Patient is on 4 L nasal cannula, he is on clevidipine drip at 4 mg per hour, IV fluids at KVO, patient remains on Unasyn for presumptive aspiration pneumonia. Today I will start the patient on Norvasc, clonidine patch, Lopressor, and work on getting him off of the clevidipine drip sometime later today. In the meantime the patient is able to eat, will start oral medications. Continue to watch him for potential withdrawal, and once the patient is off clevidipine, could potentially consider transferring him out of the ICU to a medical surgical floor. Most likely this will not happen until tomorrow. In the meantime the patient does not seem to be in any distress, WBC count 12.6 hemoglobin is 9 basic metabolic profile is normal blood sugar is 107 chest x-ray continues to show by basila. Multifocal. Infiltrates consistent with aspiration pneumonia Objective - Vital Signs Vital signs: Vital Signs Temp 98.2 F 04/08/23 08:00 Pulse 103 H 04/08/23 10:00 Resp 16 04/08/23 10:00 BP 154/91 04/08/23 10:00 Pulse Ox 94 L 04/08/23 10:00 FiO2 45 04/06/23 16:00 Intake & Output 04/07/23 04/08/23 04/08/23 18:59 06:59 18:59 Intake Total 780.692 428.833 590.333 Output Total 810 1055 180 Balance -29.308 -626.167 410.333 Weight 78 kg 78 kg Intake: IV 330 210 340 Ampicillin-Sulbactam 3 gm 200 100 100 In Sodium Chloride 0.9% 100 ml @ 200 mls/hr IVPB Q8HR [facility] Rx#:[id number] KVO 120 110 40 Magnesium Sulfate-D5w Pmx 200 1 gm In Dextrose/Water 1 100ml.bag @ 100 mls/hr IVPB Q1H [facility] Rx#: [id number] Sodium Chloride 0.9% 1, 10 000 ml @ 75 mls/hr IV . [id number] [facility] Rx#:[id number] Intake, IV Titration 450.692 218.833 0.333 Amount Clevidipine Butyrate 25 10.600 118.833 0.333 mg In Empty Bag 1 bag @ 1 MG/HR 2 mls/hr IV .Q24H [facility] Rx#:[id number] Dexmedetomidine/0.9% NaCl 40.092 (Pmx) 400 mcg In Empty Bag 1 bag @ 0.2 MCG/KG/HR 4.25 mls/hr IV .[id number] [facility] Rx#:[id number] Potassium Chloride 10 meq 100 100 In Water For Injection 1 100ml.bag @ 100 mls/hr IVPB Q1H [facility] Rx#: [id number] Potassium Chloride 10 meq 300 In Water For Injection 1 100ml.bag @ 100 mls/hr IVPB Q1HR [facility] Rx#: [id number] Oral 0 250 Tube Feeding 0 Output: Urine 810 1055 180 Other: Voiding Method Indwelling Catheter Indwelling Catheter Indwelling Catheter - Exam Physical Exam: Revealed 57-year-old in no distress, on 4 L nasal cannula Head: Atraumatic, normocephalic. HEENT:[Neck is supple.] [No neck masses.] [No thyromegaly.] [No JVD.] Chest: [Symmetrical chest expansion diminished breath sounds at the bases minimal crackles at the bases Cardiac Exam: [Normal S1 and S2, no S3 gallop, no murmur.] Abdomen: [Soft, nontender, no megaly, no rebound, no guarding, normal bowel so unds.] Extremities: [No clubbing, no edema, no cyanosis.], Good pulses bilaterally Neurological Exam: Awake, alert and oriented 3 no gross focal deficit Psychiatric: Depressed mood, flat affect, normal mental status examination Skin: No rashes, multiple tattoos noted all over. - Labs CBC & Chem 7: 04/08/23 05:06 04/08/23 05:06 Labs: Abnormal Lab Results - Last 24 Hours (Table) 04/08/23 04/08/23 Range/Units 05:06 05:06 WBC 12.6 H (3.8-10.6) k/uL RBC 3.45 L (3.80-5.40) m/uL Hgb 9.0 L (11.4-16.0) gm/dL Hct 28.7 L (34.0-46.0) % RDW 19.4 H (11.5-15.5) % Neutrophils # 10.9 H (1.3-7.7) k/uL Lymphocytes # 0.7 L (1.0-4.8) k/uL Glucose 107 H (74-99) mg/dL Calcium 8.3 L (8.4-10.2) mg/dL Magnesium 1.4 L (1.6-2.3) mg/dL Microbiology - Last 24 Hours (Table) 04/05/23 02:36 Blood Culture - Preliminary Blood 04/05/23 02:15 Gram Stain - Final Sputum Sputum Culture - Final Assessment and Plan Assessment: Impression: Acute alcohol withdrawal, acute delirium tremens, requiring intubation and mechanical ventilation, patient was extubated on 04/06/23 Acute respiratory failure, secondary to acute delirium tremens requiring intubation mostly to protect his airways Acute aspiration pneumonia is strongly suspected History of alcohol abuse acute leukocytosis secondary to above Recommendation: Patient tolerated extubation over the last 48 hours Continue oxygen and titrate accordingly Continue incentive spirometry Continue antibiotics Continue GI and DVT prophylaxis Continue to monitor in the ICU for now. Start patient on oral medications for hypertension Taper and likely discontinue clevidipine Continue to monitor for any potential alcohol withdrawal and follow the CIWA pro Time with Patient: Less than 30
[2023-04-08] MEDS: lisinopriL 10 MG TAB PO SCH (11:56)
[2023-04-08] MEDS: hydrALAZINE HCL 25 MG TAB PO SCH ×2 (19:01→21:39)
[2023-04-08] MEDS: LORazepam 2 MG/ML INJ IV PRN (23:20)
[2023-04-09] MEDS: CLEVIDIPINE BUTYRATE 25 MG in EMPTY BAG 1 BAG IV SCH (02:02)
[2023-04-09] MEDS: DEXMEDETOMIDINE/0.9% NACL(PMX) 400 MCG in EMPTY BAG 1 BAG IV SCH (05:10)
[2023-04-09 06:31] LABS: African American GFR (CKD) 82 (>60 ml/min/1.73 sqM); Anion Gap 12 mmol/L; Blood Urea Nitrogen 11 mg/dL (7-17); Calcium 8.9 mg/dL (8.4-10.2); Carbon Dioxide 23 mmol/L (22-30); Chloride 105 mmol/L (98-107); Glucose 103 mg/dL (74-99); Magnesium 1.6 mg/dL (1.6-2.3); Non-African American GFR(CKD) 71 (>60 ml/min/1.73 sqM); Sodium 140 mmol/L (137-145)
[2023-04-09 06:40] LABS: Anisocytosis Slight; Basophils % (A) 0 %; Eosinophils # (A) 0.4 k/uL (0-0.7); Eosinophils % (A) 4 %; HCT 27.3 % (34.0-46.0); HGB 8.7 gm/dL (11.4-16.0); Hypochromasia Marked; Lymphocytes # (A) 0.7 k/uL (1.0-4.8); Lymphocytes % (A) 6 %; MCH 26.8 pg (25.0-35.0); MCHC 31.8 g/dL (31.0-37.0); MCV 84.2 fL (80.0-100.0); Mean Platelet Volume 9.2; Microcytosis Slight; Monocytes # (A) 0.5 k/uL (0-1.0); Monocytes % (A) 4 %; Neutrophils # (A) 10.6 k/uL (1.3-7.7); Neutrophils % (A) 85 %; Platelet Count 329 k/uL (150-450); RBC 3.24 m/uL (3.80-5.40); RDW 19.2 % (11.5-15.5); WBC 12.6 k/uL (3.8-10.6)
[2023-04-09] MEDS: MAGNESIUM SULFATE-D5W PMX 1 GM in DEXTROSE/WATER 1 100ML.BAG IVPB SCH ×2 (07:02→09:50)
[2023-04-09] MEDS: ENOXAPARIN 40 MG/0.4 ML SYRINGE SQ SCH ×2 (08:35→09:06)
--- NOTE | 2023-04-09 08:44 | XR ---
EXAMINATION TYPE: XR chest 1V portable DATE OF EXAM: 04/09/2023 COMPARISON: 04/08/2023 INDICATION: Hypoxemia TECHNIQUE: Single frontal view of the chest is obtained. FINDINGS: The heart size is normal. The pulmonary vasculature is normal. Some mild changes at the lung bases. Correlate for subsegmental atelectasis. IMPRESSION: 1. Ingestion of mild bibasilar subsegmental atelectasis. Clinical correlation is recommended. Pneumon ia could be considered. Findings are improved from comparison.
[2023-04-09] MEDS: AMPICILLIN-SULBACTAM 3 GM in SODIUM CHLORIDE 0.9% 100 ML IVPB SCH ×3 (09:04→22:55)
[2023-04-09] MEDS: PANTOPRAZOLE 40 MG/10 ML VIAL IVP SCH ×2 (09:06→20:52)
[2023-04-09] MEDS: THIAMINE 100 MG TAB PO SCH (09:11)
[2023-04-09] MEDS: hydrALAZINE HCL 25 MG TAB PO SCH ×3 (09:13→23:33)
[2023-04-09] MEDS: lisinopriL 10 MG TAB PO SCH (09:13)
[2023-04-09] MEDS: METOPROLOL TARTRATE 25 MG TAB PO SCH ×2 (09:13→20:52)
[2023-04-09] MEDS: amLODIPine 5 MG TAB PO SCH ×2 (09:13→20:52)
[2023-04-09] MEDS ORDERED: lisinopriL 10 MG TAB PO STA (11:10)
--- NOTE | 2023-04-09 11:11 | P.PN ---
Subjective Progress Note Date: 04/09/23 Pt appears obtunded today after receiving dose of librium. Seen sitting up in chair. BPs have improved with orals, and clevidipine weaned off. Gen: Asleep, arousable HEENT: normocephalic, atraumatic, good hearing acuity, moist mucous membranes Resp: good air exchange, breathing comfortably with no accessory muscle use CVS: good distal perfusion x 4, GI: soft, NTTP, ND : no SPT, no CVAT, rojo catheter is present MSK: no pitting edema, no clubbing Neuro: non-focal, moving all extremities Hospital course: Patient is a 57-year-old biological female, identified as a male, who was sent in by [facility] for suspected alcohol withdrawal with confusion. Patient reports long-standing history of alcohol abuse drinking a half to 1 pint of hard liquor daily. Patient's last drink was reportedly 36 hours ago. At [facility], he was noted to be increasingly confused, hallucinating, and somewhat shaky. The patient's blood pressure was also noted to be high. At the time of interview, the patient does not sure why he is at the hospital and says that he feels fine. Denied experiencing chest discomfort, shortness of breath, fever, chills, cough, nausea, vomiting, abdominal pain, diarrhea. In the emergency room, laboratory evaluation revealed hemoglobin of 10.8 with platelet count 245, Na 141, potassium 3.8, creatinine 1.24, magnesium 1.2, AST 51, and albumin 3.4. Patient was placed on CIWA protocol and given Ativan as needed for alcohol withdrawal. 04/03 Patient is confused. He thinks it's December. He believes he is in [place]. Attempting to get out of bed but re-directable. Given 10 mg IV ativan over the past 24H. 04/04 Patient was seen and examined. He is extremely restless today. Retaining > 600 cc urine on bladder scan. SBP consistently in the 200s. He was given 2 doses of Hydralazine 10 mg IV for hypertension. He also has low grade fevers. BMP Na 135, bicarb 18. Mag 1.3. B12 1699. Folate 13.9. TSH 2.2. Ammonia 10. 04/05 Mentation continued to worsen overnight. He was found to be minimally responsive and newly hypoxic saturating 80's on 4-6L NC. Incremental doses of flumazelin was given with minimal improvement. ABG showed pO2 of 40. D-Dimer elevated at 2.0. CTA chest was ordered which was negative for PE but findings of aspiration pneumonia. CT brain negative for acute pathology. He was eventually intubated to protect his airway and moved to ICU. This morning he is febrile with Tmax 103.1, hypotensive with BP 85/49, RR 28, saturating 99% on mechanical ventilation. Propofol at 20 mcg/kg/min for sedation. Unasyn started for aspiration PNA. 04/06 Patient continues to be intubated. He was on levophed overnight for hypotension for a short period of time which has been weaned off this morning. CBC WBC 12.5, Hg 8. ABG pH 7.47, pCO2 32. BMP Na 135, Cl 108, bicarb 21, BUN 23, Cr 1.36, Ca 7.1. Procal elevated at 1.55. CXR shows right lower lobe infiltrate. Antibiotics include Unasyn for coverage of aspiration PNA. Sedated with pro pofol. Assessment/plan: Acute hypoxic respiratory failure Sepsis due to aspiration pneumonia -Continue antibiotics: Unasyn 3 g every 8 hours -No need for pressors -Gram stain reviewed, shows polymicrobial zoraida, speciation shows normal respiratory zoraida -Blood culture reviewed, no growth to date -CBC reviewed, mild leukocytosis to 12.6 HTN urgency - clevidipine gtt d/c'd - continue amlodipine 5mg BID - lisinopril 10mg daily - will be increased to 20mg daily - patient started on hydralazine 25mg TID - agree with metoprolol 25mg daily Acute metabolic encephalopathy Delirium tremens -Ativan when necessary -discontinue librium Acute kidney injury secondary to hypotension Urinary retention -Rojo catheter is in place -Creatinine reviewed, improving to 0.91 -Hypotension has resolved Normocytic anemia Hypomagnesemia -Medications have been reconciled Patient is full code Objective - Vital Signs Vital signs: Vital Signs Temp 99 F 04/09/23 08:00 Pulse 70 04/09/23 10:00 Resp 21 04/09/23 10:00 BP 129/74 04/09/23 10:00 Pulse Ox 95 04/09/23 10:00 FiO2 45 04/06/23 16:00 Intake & Output 04/08/23 04/09/23 04/09/23 18:59 06:59 18:59 Intake Total 1037.933 153.967 402 Output Total 495 1025 340 Balance 542.933 -871.033 62 Weight 78 kg 78.1 kg Intake: IV 420 120 340 Ampicillin-Sulbactam 3 gm 100 100 In Sodium Chloride 0.9% 100 ml @ 200 mls/hr IVPB Q8HR [facility] Rx#:[id number] KVO 120 120 40 Magnesium Sulfate-D5w Pmx 200 200 1 gm In Dextrose/Water 1 100ml.bag @ 100 mls/hr IVPB Q1H [facility] Rx#: [id number] Intake, IV Titration 67.933 33.967 12 Amount Clevidipine Butyrate 25 67.933 33.967 12 mg In Empty Bag 1 bag @ 1 MG/HR 2 mls/hr IV .Q24H [facility] Rx#:[id number] Oral 550 50 Output: Urine 495 1025 340 Other: Voiding Method Indwelling Catheter Indwelling Catheter Indwelling Catheter - Labs CBC & Chem 7: 04/09/23 05:26 04/09/23 05:26 Labs: Abnormal Lab Results - Last 24 Hours (Table) 04/09/23 04/09/23 Range/Units 05:26 05:26 WBC 12.6 H (3.8-10.6) k/uL RBC 3.24 L (3.80-5.40) m/uL Hgb 8.7 L (11.4-16.0) gm/dL Hct 27.3 L (34.0-46.0) % RDW 19.2 H (11.5-15.5) % Neutrophils # 10.6 H (1.3-7.7) k/uL Lymphocytes # 0.7 L (1.0-4.8) k/uL Glucose 103 H (74-99) mg/dL Microbiology - Last 24 Hours (Table) 04/05/23 02:36 Blood Culture - Preliminary Blood
--- NOTE | 2023-04-09 11:27 | P.PN ---
Subjective Progress Note Date: 04/09/23 Principal diagnosis: Acute alcohol withdrawal This is a 57-year-old biological female, identified as a mail, sent by [facility] for suspected alcohol withdrawal and confusion/altered mental status. She has long-standing history of alcohol abuse, drinks on the average of one half pint to 1. pint of hard liquor daily. Apparently had last drink was 36 hours prior, while at [facility] patient was noted to be confused and hallucinating and shaky. Blood pressure was also noted to be elevated, patient was sent to [facility], and apparently CT of the brain showed no evidence of active process, patient was admitted to the floor, and he required significa nt amount of Ativan for sedation to the point that the patient was difficult to arouse, and could not protect her airways. Patient was transferred to the ICU intubated, mechanically ventilated, and we were asked to see the patient on consultation. Patient is on assist control rate of 2010 volume 400 FiO2 was 60% and PEEP of 5 after reviewing ABG showed a pO2 of 243 pCO2 32 pH of 7.49 I changed the rate down to 18 FiO2 down to 45%. And increased the flow rate up to 65 L/m. Patient is on propofol at 15 mcg/kg/m also on IV fluids 75 mL of 0.9 normal saline at an an hour. Blood pressure is marginal urine output is poor, hence I recommended 2 L of fluid boluses given shortly after I evaluated the patient in the ICU. Not much history could be obtained from the patient. Labs showed relatively normal CBC is relatively normal electrolytes are relatively normal renal profile drug screen mostly positive for benzodiazepines. tone and 1.55 CT angiogram of the chest showed atelectasis/infiltrates, most likely consistent with aspiration pneumonia Reevaluated today 04/06/23, patient remains in the ICU intubated and mechanically ventilated. Patient is on assist control rate of 18 tidal volume 400 FiO2 45% PEEP of 5 remains on propofol at 35 mcg/kg/m. IV fluids 75 mL of 0.9 normal saline per hour. ABG showed a pO2 of 134 pCO2 32 pH of 7.47. Chest x-ray showed small left pleural effusion and right basilar atelectasis/infiltrates. WBC count is 12.5 hemoglobin is 8 basic metabolic p rofile is normal. BUN is 23 creatinine 1.36. Patient did receive significant amount of fluids over the last 24 hours. Urine output remains marginal. Hence more fluids will be given today the meantime I plan to discontinue sedation and give the patient hopefully a weaning trial today, but considering the patient's presentation and history of alcohol abuse as well as alcohol withdrawal, I'm planning to use Precedex to replace propofol and gradually wean off propofol and give the patient a trial of weaning after a trial of pressure support and CPAP. In the meantime continue antibiotics. And continue GI and DVT prophylaxis Reevaluated today on 04/07/2023, patient remains in the ICU was extubated yesterday. He developed some fluid overload last night, and he required Lasix. He was on 10 L high flow nasal cannula night and now he is down to 2 L. Blood pressure is elevated and he received hydralazine. Remains on Unasyn for presumptive aspiration pneumonia. Remains on Precedex. IV fluids at KVO, continues to receive Ativan as needed. Patient had a T-max of 100.5, and we strongly suspected that the patient may have aspirated. Chest x-ray continues to show left basilar and right basilar infiltrate/atelectasis might also showed some prominence of the pulmonary vasculature and sitting his mental status and I plan to keep the patient in the ICU because of history of alcohol withdrawal and is still requiring Precedex as well as Ativan. Labs today WBC is 10.4 hemoglobin 8.2 basic metabolic profile is normal creatinine 1.11 by significantly improved compared to yesterday creatinine of 1.36 Reevaluated today on 04/08/2023, patient remains in the ICU, tolerated the extubation well over the last 2 days. Patient is on 4 L nasal cannula, he is on clevidipine drip at 4 mg per hour, IV fluids at KVO, patient remains on Unasyn for presumptive aspiration pneumonia. Today I will start the patient on Norvasc, clonidine patch, Lopressor, and work on getting him off of the clev idipine drip sometime later today. In the meantime the patient is able to eat, will start oral medications. Continue to watch him for potential withdrawal, and once the patient is off clevidipine, could potentially consider transferring him out of the ICU to a medical surgical floor. Most likely this will not happen until tomorrow. In the meantime the patient does not seem to be in any distress, WBC count 12.6 hemoglobin is 9 basic metabolic profile is normal blood sugar is 107 chest x-ray continues to show by basila. Multifocal. Infiltrates consistent with aspiration pneumonia Reevaluated today on 04/09/23, patient remains in the ICU, doing well, no specific complaints over the last 24 hours. Patient is on 6 L nasal cannula, on clevidipine at 3 mg/h which I will discontinue since the patient is now on oral Norvasc and is also on clonidine. His also on beta blockers. These could be adjusted accordingly. Patient remains on Unasyn for presumptive aspiration pneumonia. Chest x-ray is showing improvement in his by basilar infiltrates. WBC count is 12.6 hemoglobin 8.7 and electrolytes are normal renal profile is normal Objective - Vital Signs Vital signs: Vital Signs Temp 99 F 04/09/23 08:00 Pulse 70 04/09/23 10:00 Resp 21 04/09/23 10:00 BP 129/74 04/09/23 10:00 Pulse Ox 95 04/09/23 10:00 FiO2 45 04/06/23 16:00 Intake & Output 04/08/23 04/09/23 04/09/23 18:59 06:59 18:59 Intake Total 1037.933 153.967 402 Output Total 495 1025 340 Balance 542.933 -871.033 62 Weight 78 kg 78.1 kg Intake: IV 420 120 340 Ampicillin-Sulbactam 3 gm 100 100 In Sodium Chloride 0.9% 100 ml @ 200 mls/hr IVPB Q8HR J[facility] Rx#:[id number] KVO 120 120 40 Magnesium Sulfate-D5w Pmx 200 200 1 gm In Dextrose/Water 1 100ml.bag @ 100 mls/hr IVPB Q1H JAB[facility] Rx#: [id number] Intake, IV Titration 67.933 33.967 12 Amount Clevidipine Butyrate 25 67.933 33.967 12 mg In Empty Bag 1 bag @ 1 MG/HR 2 mls/hr IV .Q24H JABIER Rx#:[id number] Oral 550 50 Output: Urine 495 1025 340 Other: Voiding Method Indwelling Catheter Indwelling Catheter Indwelling Catheter - Exam Physical Exam: Revealed 57-year-old in no distress, on room air Head: Atraumatic, normocephalic. HEENT:[Neck is supple.] [No neck masses.] [No thyromegaly.] [No JVD.] Chest: [Symmetrical chest expansion, final crackles at the bases no rhonchi and no wheezes Cardiac Exam: [Normal S1 and S2, no S3 gallop, no murmur.] Abdomen: [Soft, nontender, no megaly, no rebound, no guarding, normal bowel sounds.] Extremities: [No clubbing, no edema, no cyanosis.], Good pulses bilaterally Neurological Exam: Awake, alert and oriented 3 no gross focal deficit Psychiatric: Normal mood, flat affect, normal mental status examination Skin: No rashes, multiple tattoos noted all over. - Labs CBC & Chem 7: 04/09/23 05:26 04/09/23 05:26 Labs: Abnormal Lab Results - Last 24 Hours (Table) 04/09/23 04/09/23 Range/Units 05:26 05:26 WBC 12.6 H (3.8-10.6) k/uL RBC 3.24 L (3.80-5.40) m/uL Hgb 8.7 L (11.4-16.0) gm/dL Hct 27.3 L (34.0-46.0) % RDW 19.2 H (11.5-15.5) % Neutrophils # 10.6 H (1.3-7.7) k/uL Lymphocytes # 0.7 L (1.0-4.8) k/uL Glucose 103 H (74-99) mg/dL Microbiology - Last 24 Hours (Table) 04/05/23 02:36 Blood Culture - Preliminary Blood Assessment and Plan Assessment: Impression: Acute alcohol withdrawal, acute delirium tremens, requiring intubation and mechanical ventilation, patient was extubated on 04/06/23 Acute respiratory failure, secondary to acute delirium tremens requiring intubation mostly to protect his airways Acute aspiration pneumonia is strongly suspected History of alcohol abuse acute leukocytosis secondary to above Recommendation: Patient tolerated extubation over the last 72 hours. Continue incentive spirometry Continue antibiotics Continue GI and DVT prophylaxis Discontinue clevidipine, continue beta blockers, continue Norvasc and continue clonidine and transfer patient to a medical surgical floor today. Start patient on oral medications for hypertension Continue to monitor for any potential alcohol withdrawal Time with Patient: Less than 30
--- NOTE | 2023-04-09 13:18 | CDI ---
Documentation Clarification Form Date: 04/09/2023 12:51:11 PM From: Beryl Page RN, CCDS Email: [email or web address] Admit Date: 04/02/2023 04:07:00 AM Patient Name: Loretta Munroe Visit Number: [id number] Discharge Date: ATTENTION: The Clinical Documentation Specialists (CDI) and [facility] Coding Staff appreciate your assistance in clarifying documentation. Please respond to the clarification below the line at the bottom and electronically sign. The CDI & [facility] Coding staff will review the response and follow-up if needed. Please note: Queries are made part of the Legal Health Record. If you have any questions, please contact the author of this message via ITS. Dr. Raeann Bryan Your patient received IV Levophed and was hypotensive. Further clarification is requested. History/Risk Factors: long standing history of alcohol abuse. Presented with confusion and hallucinating. Admitted with altered mental status, suspect alcohol withdrawal delirium. Clinical indicators: 04/05 IM: "minimally responsive and newly hypoxic saturating 80's on 4-6L. CTA chest findings of aspiration pneumonia. He was eventually intubated. This morning he is febrile with Tmax 103.1, hypotensive with BP 85/49, RR 28, saturating 99% on mechanical ventilation. Acute hypoxic respiratory failure. Sepsis due to aspiration pneumonia." 04/05 Pulmonary: "Hypotension, likely hypovolemic in nature and could also be secondary to narcotics/sedatives given for sedation. 04/06 IM: "He was on Levophed overnight for hypotension for a short period of time which has been weaned off this morning." 04/05 BP 67/37-68/40-87/52-134/51-85/48 04/06 BP 84/46-95/47-109/53-120/62-140/75 Treatment: IV Levophed titrated 04/06; 1L 0.9 NS IV bolus x4 on 04/05 What diagnosis were you treating with IV Levophed? [x] Septic shock [ ] Hypovolemic shock [ ] No additional diagnosis [ ] Other, please specify [ ] Unable to determine MTDD
[2023-04-09] MEDS: SODIUM CHLORIDE 0.9% 1,000 ML IV SCH (18:24)
[2023-04-09] MEDS: LORazepam 2 MG/ML INJ IV PRN ×2 (21:11→22:19)
[2023-04-10] MEDS: LORazepam 2 MG/ML INJ IV PRN ×5 (00:26→20:56)
[2023-04-10] MEDS: SODIUM CHLORIDE 0.9% 1,000 ML IV SCH ×3 (03:29→20:47)
[2023-04-10] MEDS: AMPICILLIN-SULBACTAM 3 GM in SODIUM CHLORIDE 0.9% 100 ML IVPB SCH ×3 (07:50→23:28)
[2023-04-10] MEDS: ENOXAPARIN 40 MG/0.4 ML SYRINGE SQ SCH (07:50)
[2023-04-10] MEDS: PANTOPRAZOLE 40 MG/10 ML VIAL IVP SCH ×2 (07:50→20:46)
[2023-04-10] MEDS: hydrALAZINE HCL 25 MG TAB PO SCH ×2 (07:51→20:46)
[2023-04-10] MEDS: amLODIPine 5 MG TAB PO SCH ×2 (07:51→20:46)
[2023-04-10] MEDS: THIAMINE 100 MG TAB PO SCH (07:51)
[2023-04-10] MEDS: lisinopriL 20 MG TAB PO SCH (07:51)
[2023-04-10] MEDS: METOPROLOL TARTRATE 25 MG TAB PO SCH ×2 (07:51→20:46)
--- NOTE | 2023-04-10 10:03 | P.PN ---
Subjective Progress Note Date: 04/10/23 Pt appears significantly improved today. No longer requiring oxygen. Blood pressures are improved on oral medications. Required 1 mg of Ativan overnight, not obtunded today. Gen: Asleep, arousable HEENT: normocephalic, atraumatic, good hearing acuity, moist mucous membranes Resp: good air exchange, breathing comfortably with no accessory muscle use CVS: good distal perfusion x 4, GI: soft, NTTP, ND : no SPT, no CVAT, rojo catheter is present MSK: no pitting edema, no clubbing Neuro: non-focal, moving all extremities Hospital course: Patient is a 57-year-old biological female, identified as a male, who was sent in by [facility] for suspected alcohol withdrawal with confusion. Patient re ports long-standing history of alcohol abuse drinking a half to 1 pint of hard liquor daily. Patient's last drink was reportedly 36 hours ago. At [place] [facility], he was noted to be increasingly confused, hallucinating, and somewhat shaky. The patient's blood pressure was also noted to be high. At the time of interview, the patient does not sure why he is at the hospital and says that he feels fine. Denied experiencing chest discomfort, shortness of breath, fever, chills, cough, nausea, vomiting, abdominal pain, diarrhea. In the emergency room, laboratory evaluation revealed hemoglobin of 10.8 with platelet count 245, Na 141, potassium 3.8, creatinine 1.24, magnesium 1.2, AST 51, and albumin 3.4. Patient was placed on CIWA protocol and given Ativan as needed for alcohol wi thdrawal. 04/03 Patient is confused. He thinks it's December. He believes he is in [place]. Attempting to get out of bed but re-directable. Given 10 mg IV ativan over the past 24H. 04/04 Patient was seen and examined. He is extremely restless today. Retaining > 600 cc urine on bladder scan. SBP consistently in the 200s. He was given 2 doses of Hydralazine 10 mg IV for hypertension. He also has low grade fevers. BMP Na 135, bicarb 18. Mag 1.3. B12 1699. Folate 13.9. TSH 2.2. Ammonia 10. 04/05 Mentation continued to worsen overnight. He was found to be minimally responsive and newly hypoxic saturating 80's on 4-6L NC. Incremental doses of flumazelin was given with minimal improvement. ABG showed pO2 of 40. D-Dimer elevated at 2.0. CTA chest was ordered which was negative for PE but findings of aspiration pneumonia. CT brain negative for acute pathology. He was eventually intubated to protect his airway and moved to ICU. This morning he is febrile with Tmax 103.1, hypotensive with BP 85/49, RR 28, saturating 99% on mechanical ventilation. Propofol at 20 mcg/kg/min for sedation. Unasyn started for aspiration PNA. 04/06 Patient continues to be intubated. He was on levophed overnight for hypotension for a short period of time which has been weaned off this morning. CBC WBC 12.5, Hg 8. ABG pH 7.47, pCO2 32. BMP Na 135, Cl 108, bicarb 21, BUN 23, Cr 1.36, Ca 7.1. Procal elevated at 1.55. CXR shows right lower lobe infiltrate. Antibiotics include Unasyn for coverage of aspiration PNA. Sedated with propofol. Assessment/plan: Acute hypoxic respiratory failure Sepsis due to aspiration pneumonia -Continue antibiotics: Unasyn 3 g every 8 hours, today is day 6 of antibiotics, will complete course at a 7 -No need for pressors -Gram stain reviewed, shows polymicrobial zoraida, speciation shows normal respiratory zoraida -Blood culture reviewed, no growth to date -CBC today is pending HTN urgency - clevidipine gtt d/c'd - continue amlodipine 5mg BID - lisinopril 20mg daily - patient started on hydralazine 25mg TID, tapered back to hydralazine 25 mg twice a day - agree with metoprolol 25mg twice a day Acute metabolic encephalopathy Delirium tremens -Ativan when necessary Acute kidney injury secondary to hypotension Urinary retention -Rojo catheter is in place, attempt trial of void today -Creatinine today is pending -Hypotension has resolved Normocytic anemia Hypomagnesemia -Medications have been reconciled Patient is full code Objective - Vital Signs Vital signs: Vital Signs Temp 98.0 F 04/10/23 07:47 Pulse 89 04/10/23 07:47 Resp 18 04/10/23 07:47 BP 172/94 04/10/23 07:47 Pulse Ox 94 L 04/10/23 07:47 FiO2 45 04/06/23 16:00 Intake & Output 04/09/23 04/10/23 04/10/23 18:59 06:59 18:59 Intake Total 472 200 Output Total 495 850 700 Balance -650 -700 Intake: IV 410 200 Ampicillin-Sulbactam 3 gm 100 In Sodium Chloride 0.9% 100 ml @ 200 mls/hr IVPB Q8HR [facility] Rx#:[id number] KVO 110 200 Magnesium Sulfate-D5w Pmx 200 1 gm In Dextrose/Water 1 100ml.bag @ 100 mls/hr IVPB Q1H [facility] Rx#: [id number] Intake, IV Titration 12 Amount Clevidipine Butyrate 25 12 mg In Empty Bag 1 bag @ 1 MG/HR 2 mls/hr IV .Q24H [facility]AB[facility] Rx#:[id number] Oral 50 Output: Urine 495 850 700 Other: Voiding Method Indwelling Catheter Indwelling Catheter Indwelling Catheter - Labs CBC & Chem 7: 04/09/23 05:26 04/09/23 05:26
[2023-04-10] MEDS: MAGNESIUM SULFATE-D5W PMX 1 GM in DEXTROSE/WATER 1 100ML.BAG IVPB SCH ×2 (11:03→14:25)
--- NOTE | 2023-04-10 12:27 | P.PN ---
Subjective Progress Note Date: 04/10/23 Principal diagnosis: Acute alcohol withdrawal This is a 57-year-old biological female, identified as a mail, sent by [facility] [facility] for suspected alcohol withdrawal and confusion/altered mental status. She has long-standing history of alcohol abuse, drinks on the average of one half pint to 1. pint of hard liquor daily. Apparently had last drink was 36 hours prior, while at [place] patient was noted to be confused and hallucinating and shaky. Blood pressure was also noted to be elevated, patient was sent to [facility], and apparently CT of the brain showed no evidence of active process, patient was admitted to the floor, and he required significa nt amount of Ativan for sedation to the point that the patient was difficult to arouse, and could not protect her airways. Patient was transferred to the ICU intubated, mechanically ventilated, and we were asked to see the patient on consultation. Patient is on assist control rate of 2010 volume 400 FiO2 was 60% and PEEP of 5 after reviewing ABG showed a pO2 of 243 pCO2 32 pH of 7.49 I changed the rate down to 18 FiO2 down to 45%. And increased the flow rate up to 65 L/m. Patient is on propofol at 15 mcg/kg/m also on IV fluids 75 mL of 0.9 normal saline at an an hour. Blood pressure is marginal urine output is poor, hence I recommended 2 L of fluid boluses given shortly after I evaluated the patient in the ICU. Not much history could be obtained from the patient. Labs showed relatively normal CBC is relatively normal electrolytes are relatively normal renal profile drug screen mostly positive for benzodiazepines. tone and 1.55 CT angiogram of the chest showed atelectasis/infiltrates, most likely consistent with aspiration pneumonia Reevaluated today 04/06/23, patient remains in the ICU intubated and mechanically ventilated. Patient is on assist control rate of 18 tidal volume 400 FiO2 45% PEEP of 5 remains on propofol at 35 mcg/kg/m. IV fluids 75 mL of 0.9 normal saline per hour. ABG showed a pO2 of 134 pCO2 32 pH of 7.47. Chest x-ray showed small left pleural effusion and right basilar atelectasis/infiltrates. WBC count is 12.5 hemoglobin is 8 basic metabolic p rofile is normal. BUN is 23 creatinine 1.36. Patient did receive significant amount of fluids over the last 24 hours. Urine output remains marginal. Hence more fluids will be given today the meantime I plan to discontinue sedation and give the patient hopefully a weaning trial today, but considering the patient's presentation and history of alcohol abuse as well as alcohol withdrawal, I'm planning to use Precedex to replace propofol and gradually wean off propofol and give the patient a trial of weaning after a trial of pressure support and CPAP. In the meantime continue antibiotics. And continue GI and DVT prophylaxis Reevaluated today on 04/07/2023, patient remains in the ICU was extubated yesterday. He developed some fluid overload last night, and he required Lasix. He was on 10 L high flow nasal cannula night and now he is down to 2 L. Blood pressure is elevated and he received hydralazine. Remains on Unasyn for presumptive aspiration pneumonia. Remains on Precedex. IV fluids at KVO, continues to receive Ativan as needed. Patient had a T-max of 100.5, and we strongly suspected that the patient may have aspirated. Chest x-ray continues to show left basilar and right basilar infiltrate/atelectasis might also showed some prominence of the pulmonary vasculature and sitting his mental status and I plan to keep the patient in the ICU because of history of alcohol withdrawal and is still requiring Precedex as well as Ativan. Labs today WBC is 10.4 hemoglobin 8.2 basic metabolic profile is normal creatinine 1.11 by significantly improved compared to yesterday creatinine of 1.36 Reevaluated today on 04/08/2023, patient remains in the ICU, tolerated the extubation well over the last 2 days. Patient is on 4 L nasal cannula, he is on clevidipine drip at 4 mg per hour, IV fluids at KVO, patient remains on Unasyn for presumptive aspiration pneumonia. Today I will start the patient on Norvasc, clonidine patch, Lopressor, and work on getting him off of the clev idipine drip sometime later today. In the meantime the patient is able to eat, will start oral medications. Continue to watch him for potential withdrawal, and once the patient is off clevidipine, could potentially consider transferring him out of the ICU to a medical surgical floor. Most likely this will not happen until tomorrow. In the meantime the patient does not seem to be in any distress, WBC count 12.6 hemoglobin is 9 basic metabolic profile is normal blood sugar is 107 chest x-ray continues to show by basila. Multifocal. Infiltrates consistent with aspiration pneumonia Reevaluated today on 04/09/23, patient remains in the ICU, doing well, no specific complaints over the last 24 hours. Patient is on 6 L nasal cannula, on clevidipine at 3 mg/h which I will discontinue since the patient is now on oral Norvasc and is also on clonidine. His also on beta blockers. These could be adjusted accordingly. Patient remains on Unasyn for presumptive aspiration pneumonia. Chest x-ray is showing improvement in his by basilar infiltrates. WBC count is 12.6 hemoglobin 8.7 and electrolytes are normal renal profile is normal Reevaluated today on 04/10/23, patient is now on the medical floor, doing well, relatively asymptomatic, no evidence of any symptoms to suggest alcohol wit hdrawal. Remains on the CIWA protocol. CBC is relatively normal basic metabolic profile is normal, magnesium is 1.4 being addressed accordingly. Last chest x-ray from yesterday showed minimal infiltrates at the bases and subsegmental atelectasis improved compared to previous x-rays Objective - Vital Signs Vital signs: Vital Signs Temp 97.6 F 04/10/23 11:02 Pulse 81 04/10/23 11:02 Resp 18 04/10/23 11:02 BP 155/87 04/10/23 11:02 Pulse Ox 95 04/10/23 11:02 FiO2 45 04/06/23 16:00 Intake & Output 04/09/23 04/10/23 04/10/23 18:59 06:59 18:59 Intake Total 472 200 Output Total 495 850 700 Balance -23 -650 -700 Intake: IV 410 200 Ampicillin-Sulbactam 3 gm 100 In Sodium Chloride 0.9% 100 ml @ 200 mls/hr IVPB Q8HR [facility] Rx#:[id number] KVO 110 200 Magnesium Sulfate-D5w Pmx 200 1 gm In Dextrose/Water 1 100ml.bag @ 100 mls/hr IVPB Q1H [facility] Rx#: [id number] Intake, IV Titration 12 Amount Clevidipine Butyrate 25 12 mg In Empty Bag 1 bag @ 1 MG/HR 2 mls/hr IV .Q24H [facility] Rx#:[id number] Oral 50 Output: Urine 495 850 700 Other: Voiding Method Indwelling Catheter Indwelling Catheter Indwelling Catheter - Exam Physical Exam: Revealed 57-year-old in no distress, on room air O2 saturations 95% Head: Atraumatic, normocephalic. HEENT:[Neck is supple.] [No neck masses.] [No thyromegaly.] [No JVD.] Chest: [Symmetrical chest expansion, final crackles at the bases no rhonchi and no wheezes Cardiac Exam: [Normal S1 and S2, no S3 gallop, no murmur.] Abdomen: [Soft, nontender, no megaly, no rebound, no guarding, normal bowel sounds.] Extremities: [No clubbing, no edema, no cyanosis.], Good pulses bilaterally Neurological Exam: Awake, alert and oriented 3 no gross focal deficit Psychiatric: Normal mood, flat affect, normal mental status examination Skin: No rashes, multiple tattoos noted all over. - Labs CBC & Chem 7: 04/09/23 05:26 04/09/23 05:26 Labs: Abnormal Lab Results - Last 24 Hours (Table) 04/10/23 Range/Units 08:50 Magnesium 1.4 L (1.6-2.3) mg/dL Assessment and Plan Assessment: Impression: Acute alcohol withdrawal, acute delirium tremens, requiring intubation and mechanical ventilation, patient was extubated on 04/06/23 Acute respiratory failure, secondary to acute delirium tremens requiring intubation mostly to protect his airways Acute aspiration pneumonia , improving History of alcohol abuse acute leukocytosis secondary to above Recommendation: Continue to monitor on the medical floor for now Continue incentive spirometry Continue antibiotics Continue GI and DVT prophylaxis Continue blood pressure medications Consider discharge planning/placement early next week Time with Patient: Less than 30
--- NOTE | 2023-04-10 16:00 | CT ---
EXAMINATION TYPE: CT brain wo con DATE OF EXAM: 04/10/2023 COMPARISON: 04/04/2023 HISTORY: Fall. CT DLP: 1255.4 mGycm Automated exposure control for dose reduction was used. FINDINGS: The ventricles, basal cisterns and sulci over convexities are mildly prominent consistent with mild g eneralized atrophy. No abnormal density is seen throughout the brain parenchyma. There is no mass effect or shift of midl ine structures There is no acute intra or extra-axial hemorrhage. The posterior fossa including the brainstem, fourth ventricle and cerebellar pontine angles appear gr ossly normal. Intraorbital contents appear normal and symmetric. Visualized paranasal sinuses and mastoid air cells are well aerated. IMPRESSION: Mild generalized atrophy without acute bleed or mass effect. No interval change. IMPRESSION:
--- NOTE | 2023-04-10 16:13 | XR ---
Bilateral knees. HISTORY: Pain following fall. COMPARISON: None TECHNIQUE: 6 views are obtained including 3 views of each knee. FINDINGS: There is no fracture, dislocation or focal intraosseous abnormality. There are no joint effusions. There are mild osteophytic changes of the patellofemoral compartments and of the medial compartment i n the right knee. IMPRESSION: Mild degenerative changes but no acute trauma.
--- NOTE | 2023-04-11 01:41 | XR ---
EXAM: XR Chest, 1 View CLINICAL HISTORY: ITS.REASON XR Reason: possibly aspirated TECHNIQUE: Frontal view of the chest. COMPARISON: Chest x-ray 04/09/2023 FINDINGS: Lungs: Bilateral airspace opacities at the lung bases left greater than right. Pleural space: No pleural effusion. No pneumothorax. Heart: Unremarkable. No cardiomegaly. IMPRESSION: Bilateral airspace opacities at the lung bases left greater than right. The appearance is unchanged from the prior.
[2023-04-11 01:49] LABS: ABG Base Excess 2.5 mmol/L; ABG HCO3 28 mmol/L (21-25); ABG Oxygen Saturation 61.4 % (94-97); ABG PCO2 49 mmHg (35-45); ABG PH 7.37 (7.35-7.45); ABG TCO2 29 mmol/L (19-24); Allen Test Performed? Yes
--- NOTE | 2023-04-11 01:49 | P.EN ---
A- team: Indication: Altered mental status, hypoxia Arrived on Scene to find: Patient unresponsive to noxious stimuli answering very basic questions but falls asleep with loud snoring. Patient was given 1 mg IV push Ativan at 9 PM for tremors and altered mental status Vital signs reviewed: BP 122/78, pulse 84, SpO2 98% on 2 L cannula oxygen (drops to low 90s S patient has apneic episodes and then begins snoring again with improvement in oxygen level to 98%) Patient seen and examined at bedside. General: [non toxic], [no distress], [appears at stated age] Derm: [warm], [dry] Head: [atraumatic], [normocephalic], [symmetric] Eyes: [EOMI], [no lid lag], [anicteric sclera] Mouth: [no lip lesion], [mucus membranes moist] Cardiovascular: [S1S2 reg], [no murmur], [positive posterior tibial pulse bilateral], Lungs: [CTA bilateral], transmitted upper airway snoring sound, [no rhonchi, no rales] , [no accessory muscle use] Abdominal: [soft], [ nontender to palpation], [no guarding], [no appreciable organomegaly] Ext: [no gross muscle atrophy], [no edema], [no contractures] Neuro: [ CN II-XI grossly intact], [no focal neuro deficits] Assessment: Altered mental status, possibly secondary to benzodiazepine overdose, although low suspicion due to low dosage received Respiratory failure Plan: Chest x-ray reviewed showing no acute abnormalities Obtain ABG Low threshold for possible intubation Patient currently on Unasyn for suspected aspiration pneumonia Of note, patient had similar episode on 04/05 and was intubated and subsequently extubated on 04/06
[2023-04-11 01:55] LABS: ABG PO2 38 mmHg (83-108)
[2023-04-11 02:01] LABS: Glucose,Whole Blood 108 mg/dL (70-110)
[2023-04-11] MEDS: SODIUM CHLORIDE 0.9% 1,000 ML IV SCH ×2 (06:22→15:19)
--- NOTE | 2023-04-11 08:48 | P.PN ---
Subjective Progress Note Date: 04/11/23 Pt had event overnight which included hypoxic episode and obtundation following administration of ativan. Pt was placed on BIPAP and had ABG drawn which showed PO2 of 38. This morning, patient was more awake, alert, and was taken off bipap and placed on NC and maintained saturations in the mid-90s. Yesterday he had rojo catheter re-placed for urinary retention. Gen: Awake, alert HEENT: normocephalic, atraumatic, good hearing acuity, moist mucous membranes Resp: good air exchange, breathing comfortably with no accessory muscle use CVS: good distal perfusion x 4, GI: soft, NTTP, ND : no SPT, no CVAT, rojo catheter is present MSK: no pitting edema, no clubbing Neuro: non-focal, moving all extremities Hospital course: Patient is a 57-year-old biological female, identified as a male, who was sent in by [facility] for suspected alcohol withdrawal with confusion. Patient reports long-standing history of alcohol abuse drinking a half to 1 pint of hard liquor daily. Patient's last drink was reportedly 36 hours ago. At [facility], he was noted to be increasingly confused, hallucinating, and somewhat shaky. The patient's blood pressure was also noted to be high. At the time of interview, the patient does not sure why he is at the hospital and says that he feels fine. Denied experiencing chest discomfort, shortness of breath, fever, chills, cough, nausea, vomiting, abdominal pain, diarrhea. In the emergency room, laboratory evaluation revealed hemoglobin of 10.8 with platelet count 245, Na 141, potassium 3.8, creatinine 1.24, magnesium 1.2, AST 51, and albumin 3.4. Patient was placed on CIWA protocol and given Ativan as needed for alcohol withdrawal. 04/03 Patient is confused. He thinks it's December. He believes he is in [place]. Attempting to get out of bed but re-directable. Given 10 mg IV ativan over the past 24H. 04/04 Patient was seen and examined. He is extremely restless today. Retaining > 600 cc urine on bladder scan. SBP consistently in the 200s. He was given 2 doses of Hydralazine 10 mg IV for hypertension. He also has low grade fevers. BMP Na 135, bicarb 18. Mag 1.3. B12 1699. Folate 13.9. TSH 2.2. Ammonia 10. 04/05 Mentation continued to worsen overnight. He was found to be minimally responsive and newly hypoxic saturating 80's on 4-6L NC. Incremental doses of flumazelin was given with minimal improvement. ABG showed pO2 of 40. D-Dimer elevated at 2.0. CTA chest was ordered which was negative for PE but findings of aspiration pneumonia. CT brain negative for acute pathology. He was eventually intubated to protect his airway and moved to ICU. This morning he is febrile with Tmax 103.1, hypotensive with BP 85/49, RR 28, saturating 99% on mechanical ventilation. Propofol at 20 mcg/kg/min for sedation. Unasyn started for aspiration PNA. 04/06 Patient continues to be intubated. He was on levophed overnight for hypotension for a short period of time which has been weaned off this morning. CBC WBC 12.5, Hg 8. ABG pH 7.47, pCO2 32. BMP Na 135, Cl 108, bicarb 21, BUN 23, Cr 1.36, Ca 7.1. Procal elevated at 1.55. CXR shows right lower lobe infiltrate. Antibiotics include Unasyn for coverage of aspiration PNA. Sedated with propofol. Assessment/plan: Acute hypoxic respiratory failure Sepsis due to aspiration pneumonia -Continue antibiotics: Unasyn 3 g every 8 hours, today is day 7 of antibiotics, will complete course at 1600 today -No need for pressors -Gram stain reviewed, shows polymicrobial zoraida, speciation shows normal respiratory zoraida -Blood culture reviewed, no growth to date -CBC today is pending, AM lab ordered HTN urgency - clevidipine gtt d/c'd - continue amlodipine 5mg BID - lisinopril 20mg daily - continue hydralazine 25 mg twice a day - agree with metoprolol 25mg twice a day Acute metabolic encephalopathy Delirium tremens -Ativan when necessary was discontinued Acute kidney injury secondary to hypotension Urinary retention -Rojo catheter is in place after failed TOV yesterday -Creatinine today is pending, AM lab ordered -Hypotension has resolved Normocytic anemia Hypomagnesemia -Medications have been reconciled Patient is full code Objective - Vital Signs Vital signs: Vital Signs Temp 98.4 F 04/11/23 07:51 Pulse 80 04/11/23 08:11 Resp 19 04/11/23 08:11 BP 157/79 04/11/23 07:51 Pulse Ox 97 04/11/23 08:11 FiO2 40 04/11/23 07:51 Intake & Output 04/10/23 04/11/23 04/11/23 19:59 06:59 18:59 Intake Total Output Total Balance Intake: IV Ampicillin-Sulbactam 3 gm In Sodium Chloride 0.9% 100 ml @ 200 mls/hr IVPB Q8HR JABIER Rx#:[id number] Intake, IV Titration Amount Sodium Chloride 0.9% 1, 000 ml @ 100 mls/hr IV . Q10H JABIER Rx#:[id number] Output: Urine Straight Post Void Residual Other: Voiding Method Indwelling Catheter # Voids - Labs CBC & Chem 7: 04/09/23 05:26 04/09/23 05:26 Labs: Abnormal Lab Results - Last 24 Hours (Table) 04/10/23 04/11/23 Range/Units 08:50 01:47 EST ABG pCO2 49 H (35-45) mmHg ABG pO2 38 L* (83-108) mmHg ABG HCO3 28 H (21-25) mmol/L ABG Total CO2 29 H (19-24) mmol/L ABG O2 Saturation 61.4 L (94-97) % Magnesium 1.4 L (1.6-2.3) mg/dL Microbiology - Last 24 Hours (Table) 04/05/23 02:36 Blood Culture - Final Blood
[2023-04-11] MEDS: PANTOPRAZOLE 40 MG/10 ML VIAL IVP SCH ×2 (09:33→20:04)
[2023-04-11] MEDS: METOPROLOL TARTRATE 25 MG TAB PO SCH ×2 (09:33→20:04)
[2023-04-11] MEDS: THIAMINE 100 MG TAB PO SCH (09:34)
[2023-04-11] MEDS: hydrALAZINE HCL 25 MG TAB PO SCH ×2 (09:34→20:04)
[2023-04-11] MEDS: amLODIPine 5 MG TAB PO SCH ×2 (09:34→20:04)
[2023-04-11] MEDS: lisinopriL 20 MG TAB PO SCH (09:34)
[2023-04-11] MEDS: AMPICILLIN-SULBACTAM 3 GM in SODIUM CHLORIDE 0.9% 100 ML IVPB SCH (09:34)
[2023-04-11 10:12] LABS: Anisocytosis Slight; Basophils % (A) 1 %; Eosinophils # (A) 0.4 k/uL (0-0.7); Eosinophils % (A) 6 %; HCT 25.5 % (34.0-46.0); HGB 8.3 gm/dL (11.4-16.0); Hypochromasia Marked; Lymphocytes # (A) 0.6 k/uL (1.0-4.8); Lymphocytes % (A) 8 %; MCH 27.7 pg (25.0-35.0); MCHC 32.6 g/dL (31.0-37.0); Mean Platelet Volume 9.1; Monocytes # (A) 0.2 k/uL (0-1.0); Monocytes % (A) 3 %; Neutrophils % (A) 81 %; Platelet Count 382 k/uL (150-450); RDW 19.1 % (11.5-15.5); WBC 7.4 k/uL (3.8-10.6)
[2023-04-11 10:30] LABS: African American GFR (CKD) 90 (>60 ml/min/1.73 sqM); Anion Gap 11 mmol/L; Blood Urea Nitrogen 12 mg/dL (7-17); Calcium 8.8 mg/dL (8.4-10.2); Carbon Dioxide 24 mmol/L (22-30); Chloride 104 mmol/L (98-107); Glucose 84 mg/dL (74-99); Non-African American GFR(CKD) 78 (>60 ml/min/1.73 sqM); Potassium 3.6 mmol/L (3.5-5.1); Sodium 139 mmol/L (137-145)
[2023-04-11] MEDS: MAGNESIUM SULFATE-D5W PMX 1 GM in DEXTROSE/WATER 1 100ML.BAG IVPB SCH ×2 (10:33→11:36)
--- NOTE | 2023-04-11 13:50 | P.PN ---
Subjective Progress Note Date: 04/11/23 Principal diagnosis: Acute alcohol withdrawal This is a 57-year-old biological female, identified as a mail, sent by [facility] for suspected alcohol withdrawal and confusion/altered mental status. She has long-standing history of alcohol abuse, drinks on the average of one half pint to 1. pint of hard liquor daily. Apparently had last drink was 36 hours prior, while at [facility] patient was noted to be confused and hallucinating and shaky. Blood pressure was also noted to be elevated, patient was sent to [facility], and apparently CT of the brain showed no evidence of active process, patient was admitted to the floor, and he required significa nt amount of Ativan for sedation to the point that the patient was difficult to arouse, and could not protect her airways. Patient was transferred to the ICU intubated, mechanically ventilated, and we were asked to see the patient on consultation. Patient is on assist control rate of 2010 volume 400 FiO2 was 60% and PEEP of 5 after reviewing ABG showed a pO2 of 243 pCO2 32 pH of 7.49 I changed the rate down to 18 FiO2 down to 45%. And increased the flow rate up to 65 L/m. Patient is on propofol at 15 mcg/kg/m also on IV fluids 75 mL of 0.9 normal saline at an an hour. Blood pressure is marginal urine output is poor, hence I recommended 2 L of fluid boluses given shortly after I evaluated the patient in the ICU. Not much history could be obtained from the patient. Labs showed relatively normal CBC is relatively normal electrolytes are relatively normal renal profile drug screen mostly positive for benzodiazepines. tone and 1.55 CT angiogram of the chest showed atelectasis/infiltrates, most likely consistent with aspiration pneumonia Reevaluated today 04/06/23, patient remains in the ICU intubated and mechanically ventilated. Patient is on assist control rate of 18 tidal volume 400 FiO2 45% PEEP of 5 remains on propofol at 35 mcg/kg/m. IV fluids 75 mL of 0.9 normal saline per hour. ABG showed a pO2 of 134 pCO2 32 pH of 7.47. Chest x-ray showed small left pleural effusion and right basilar atelectasis/infiltrates. WBC count is 12.5 hemoglobin is 8 basic metabolic p rofile is normal. BUN is 23 creatinine 1.36. Patient did receive significant amount of fluids over the last 24 hours. Urine output remains marginal. Hence more fluids will be given today the meantime I plan to discontinue sedation and give the patient hopefully a weaning trial today, but considering the patient's presentation and history of alcohol abuse as well as alcohol withdrawal, I'm planning to use Precedex to replace propofol and gradually wean off propofol and give the patient a trial of weaning after a trial of pressure support and CPAP. In the meantime continue antibiotics. And continue GI and DVT prophylaxis Reevaluated today on 04/07/2023, patient remains in the ICU was extubated yesterday. He developed some fluid overload last night, and he required Lasix. He was on 10 L high flow nasal cannula night and now he is down to 2 L. Blood pressure is elevated and he received hydralazine. Remains on Unasyn for presumptive aspiration pneumonia. Remains on Precedex. IV fluids at KVO, continues to receive Ativan as needed. Patient had a T-max of 100.5, and we strongly suspected that the patient may have aspirated. Chest x-ray continues to show left basilar and right basilar infiltrate/atelectasis might also showed some prominence of the pulmonary vasculature and sitting his mental status and I plan to keep the patient in the ICU because of history of alcohol withdrawal and is still requiring Precedex as well as Ativan. Labs today WBC is 10.4 hemoglobin 8.2 basic metabolic profile is normal creatinine 1.11 by significantly improved compared to yesterday creatinine of 1.36 Reevaluated today on 04/08/2023, patient remains in the ICU, tolerated the extubation well over the last 2 days. Patient is on 4 L nasal cannula, he is on clevidipine drip at 4 mg per hour, IV fluids at KVO, patient remains on Unasyn for presumptive aspiration pneumonia. Today I will start the patient on Norvasc, clonidine patch, Lopressor, and work on getting him off of the clev idipine drip sometime later today. In the meantime the patient is able to eat, will start oral medications. Continue to watch him for potential withdrawal, and once the patient is off clevidipine, could potentially consider transferring him out of the ICU to a medical surgical floor. Most likely this will not happen until tomorrow. In the meantime the patient does not seem to be in any distress, WBC count 12.6 hemoglobin is 9 basic metabolic profile is normal blood sugar is 107 chest x-ray continues to show by basila. Multifocal. Infiltrates consistent with aspiration pneumonia Reevaluated today on 04/09/23, patient remains in the ICU, doing well, no specific complaints over the last 24 hours. Patient is on 6 L nasal cannula, on clevidipine at 3 mg/h which I will discontinue since the patient is now on oral Norvasc and is also on clonidine. His also on beta blockers. These could be adjusted accordingly. Patient remains on Unasyn for presumptive aspiration pneumonia. Chest x-ray is showing improvement in his by basilar infiltrates. WBC count is 12.6 hemoglobin 8.7 and electrolytes are normal renal profile is normal Reevaluated today on 04/10/23, patient is now on the medical floor, doing well, relatively asymptomatic, no evidence of any symptoms to suggest alcohol wit hdrawal. Remains on the CIWA protocol. CBC is relatively normal basic metabolic profile is normal, magnesium is 1.4 being addressed accordingly. Last chest x-ray from yesterday showed minimal infiltrates at the bases and subsegmental atelectasis improved compared to previous x-rays Patient was reevaluated today on 04/11/23, patient seems to be doing much better today compared to the last few days, yesterday I was notified about this patient and I recommended placing him on BiPAP overnight because he was having shallow breathing and he was difficult to arouse after he received sedation for his alcohol withdrawal. Today the patient is on nasal cannula, does not seem to be in any distress, patient seems to be called, blood pressure is under control with amlodipine, lisinopril, and hydralazine as well as metoprolol. Chest x-ray is showing slight improvement in his bilateral arms./Aspiration pneumonia patient has been on antibiotics all along, and he has no active pulmonary symptoms at present. Could consider transitioning the patient to Augmentin instead of Unasyn when times comes to discharge the patient to a rehab facility my understanding and the patient may be going to rehab in the next 24 hours. Objective - Vital Signs Vital signs: Vital Signs Temp 98.8 F 04/11/23 11:34 Pulse 71 04/11/23 11:34 Resp 17 04/11/23 11:34 BP 133/72 04/11/23 11:34 Pulse Ox 96 04/11/23 11:34 FiO2 40 04/11/23 07:51 Intake & Output 04/10/23 04/11/23 04/11/23 19:59 06:59 18:59 Intake Total Output Total 575 Balance -575 Intake: IV Ampicillin-Sulbactam 3 gm In Sodium Chloride 0.9% 100 ml @ 200 mls/hr IVPB Q8HR [facility]AB[facility] Rx#:[id number] Intake, IV Titration Amount Sodium Chloride 0.9% 1, 000 ml @ 100 mls/hr IV . Q10H JABIER Rx#:[id number] Output: Urine 575 Straight Post Void Residual Other: Voiding Method Indwelling Catheter # Voids - Exam Physical Exam: Revealed 57-year-old in no distress, on 3 L nasal cannula Head: Atraumatic, normocephalic. HEENT:[Neck is supple.] [No neck masses.] [No thyromegaly.] [No JVD.] Chest: [Symmetrical chest expansion, final crackles at the bases no rhonchi and no wheezes Cardiac Exam: [Normal S1 and S2, no S3 gallop, no murmur.] Abdomen: [Soft, nontender, no megaly, no rebound, no guarding, normal bowel sounds.] Extremities: [No clubbing, no edema, no cyanosis.], Good pulses bilaterally Neurological Exam: Awake, alert and oriented 3 no gross focal deficit Psychiatric: Normal mood, flat affect, normal mental status examination Skin: No rashes - Labs CBC & Chem 7: 04/11/23 09:46 04/11/23 09:46 Labs: Abnormal Lab Results - Last 24 Hours (Table) 04/11/23 04/11/23 04/11/23 Range/Units 01:47 EST 07:32 09:46 RBC 3.00 L (3.80-5.40) m/uL Hgb 8.3 L (11.4-16.0) gm/dL Hct 25.5 L (34.0-46.0) % RDW 19.1 H (11.5-15.5) % Lymphocytes # 0.6 L (1.0-4.8) k/uL ABG pCO2 49 H (35-45) mmHg ABG pO2 38 L* (83-108) mmHg ABG HCO3 28 H (21-25) mmol/L ABG Total CO2 29 H (19-24) mmol/L ABG O2 Saturation 61.4 L (94-97) % Magnesium 1.5 L (1.6-2.3) mg/dL Microbiology - Last 24 Hours (Table) 04/05/23 02:36 Blood Culture - Final Blood Assessment and Plan Assessment: Impression: Acute alcohol withdrawal, acute delirium tremens, requiring intubation and mechanical ventilation, patient was extubated on 04/06/23 Acute respiratory failure, secondary to acute delirium tremens requiring intubation mostly to protect his airways Acute aspiration pneumonia , improving presently on Unasyn 7, we will transition the patient to Augmentin History of alcohol abuse acute leukocytosis, resolved Recommendation: Continue present supportive care measures Continue incentive spirometry Change Unasyn to Augmentin Continue GI and DVT prophylaxis Continue blood pressure medications Will clear the patient for discharge in the next 24 hours to rehab/ECF if a bed is available Time with Patient: Less than 30
[2023-04-11] MEDS: AMOXIC-POT CLAV 875-125MG 1 EACH TAB PO SCH ×2 (14:06→20:06)
[2023-04-12] MEDS: SODIUM CHLORIDE 0.9% 1,000 ML IV SCH ×2 (05:10→11:28)
[2023-04-12 06:49] LABS: Anisocytosis Slight; Basophils # (A) 0.1 k/uL (0-0.2); Basophils % (A) 1 %; Eosinophils # (A) 0.5 k/uL (0-0.7); Eosinophils % (A) 6 %; HCT 26.4 % (34.0-46.0); HGB 8.1 gm/dL (11.4-16.0); Hypochromasia Marked; Lymphocytes # (A) 0.9 k/uL (1.0-4.8); Lymphocytes % (A) 11 %; MCH 25.7 pg (25.0-35.0); MCHC 30.7 g/dL (31.0-37.0); Mean Platelet Volume 8.9; Microcytosis Slight; Monocytes # (A) 0.3 k/uL (0-1.0); Monocytes % (A) 4 %; Neutrophils # (A) 6.1 k/uL (1.3-7.7); Neutrophils % (A) 78 %; Platelet Count 386 k/uL (150-450); RBC 3.14 m/uL (3.80-5.40); RDW 19.2 % (11.5-15.5); WBC 7.9 k/uL (3.8-10.6)
[2023-04-12 07:00] LABS: African American GFR (CKD) 78 (>60 ml/min/1.73 sqM); Anion Gap 7 mmol/L; Blood Urea Nitrogen 14 mg/dL (7-17); Calcium 8.7 mg/dL (8.4-10.2); Carbon Dioxide 26 mmol/L (22-30); Chloride 104 mmol/L (98-107); Glucose 103 mg/dL (74-99); Magnesium 1.4 mg/dL (1.6-2.3); Non-African American GFR(CKD) 68 (>60 ml/min/1.73 sqM); Potassium 3.7 mmol/L (3.5-5.1); Sodium 137 mmol/L (137-145)
[2023-04-12] MEDS: ENOXAPARIN 40 MG/0.4 ML SYRINGE SQ SCH (07:54)
[2023-04-12] MEDS: amLODIPine 5 MG TAB PO SCH ×2 (07:54→20:37)
[2023-04-12] MEDS: METOPROLOL TARTRATE 25 MG TAB PO SCH ×2 (07:55→20:36)
[2023-04-12] MEDS: PANTOPRAZOLE 40 MG/10 ML VIAL IVP SCH ×2 (07:55→20:37)
[2023-04-12] MEDS: AMOXIC-POT CLAV 875-125MG 1 EACH TAB PO SCH ×2 (07:55→20:36)
[2023-04-12] MEDS: hydrALAZINE HCL 25 MG TAB PO SCH ×2 (07:55→20:36)
[2023-04-12] MEDS: lisinopriL 20 MG TAB PO SCH (07:55)
[2023-04-12] MEDS: THIAMINE 100 MG TAB PO SCH (07:55)
[2023-04-12] MEDS: MAGNESIUM SULFATE-D5W PMX 1 GM in DEXTROSE/WATER 1 100ML.BAG IVPB SCH ×4 (08:57→13:49)
--- NOTE | 2023-04-12 12:13 | P.PN ---
Subjective Progress Note Date: 04/12/23 Principal diagnosis: Alcohol withdrawal syndrome. Reevaluated today on 04/09/23, patient remains in the ICU, doing well, no specific complaints over the last 24 hours. Patient is on 6 L nasal cannula, on clevidipine at 3 mg/h which I will discontinue since the patient is now on oral Norvasc and is also on clonidine. His also on beta blockers. These could be adjusted accordingly. Patient remains on Unasyn for presumptive aspiration pneumonia. Chest x-ray is showing improvement in his by basilar infiltrates. WBC count is 12.6 hemoglobin 8.7 and electrolytes are normal renal profile is normal Reevaluated today on 04/10/23, patient is now on the medical floor, doing well, relatively asymptomatic, no evidence of any symptoms to suggest alcohol withdrawal. Remains on the CIWA protocol. CBC is relatively normal basic metabolic profile is normal, magnesium is 1.4 being addressed accordingly. Last chest x-ray from yesterday showed minimal infiltrates at the bases and subsegmental atelectasis improved compared to previous x-rays Patient was reevaluated today on 04/11/23, patient seems to be doing much better today compared to the last few days, yesterday I was notified about this patient and I recommended placing him on BiPAP overnight because he was having shallow breathing and he was difficult to arouse after he received sedation for his alcohol withdrawal. Today the patient is on nasal cannula, does not seem to be in any distress, patient seems to be called, blood pressure is under control with amlodipine, lisinopril, and hydralazine as well as metoprolol. Chest x-ray is showing slight improvement in his bilateral arms./Aspiration pneumonia patien t has been on antibiotics all along, and he has no active pulmonary symptoms at present. Could consider transitioning the patient to Augmentin instead of Unasyn when times comes to discharge the patient to a rehab facility my understanding and the patient may be going to rehab in the next 24 hours. Progress note dated 04/12/2023. 57-year-old male seen today in room 353. Currently, the patient's receiving saline at 100 mL an hour. The patient did not use the BiPAP device last night. He is on nasal O2, at 2 L. He is feeling much better, and is currently not manifesting any signs or symptoms of alcohol withdrawal syndrome. Current laboratory data includes a white count 7.9, hemoglobin 8.1, hematocrit 26.4, and a platelet count of 386,000. Sodium 137, potassium 3.7, chlorides 104, CO2 26, anion gap 7, BUN 14, creatinine 0.95. The patient's glucose 103. The magnesium level was 1.4. Blood and sputum sampling is thus far negative. Chest x-ray reveals bilateral basilar infiltrates, left greater than right. The chest x-ray is stable. Objective - Vital Signs Vital signs: Vital Signs Temp 98.2 F 04/12/23 11:52 Pulse 73 04/12/23 11:52 Resp 18 04/12/23 11:52 BP 150/83 04/12/23 11:52 Pulse Ox 96 04/12/23 11:52 FiO2 40 04/12/23 08:59 Intake & Output 04/11/23 04/12/23 04/12/23 18:59 06:59 18:59 Intake Total 360 540 Output Total 299 426 6990 Balance -515 -350 -735 Weight 78.1 kg Intake: Oral 360 540 Output: Urine 522 326 0699 Other: Voiding Method Indwelling Catheter Indwelling Catheter Indwelling Catheter # Voids 0 # Bowel Movements 0 - Exam No acute distress, oriented 3. Currently on 2 L of oxygen. HEENT examination is grossly unremarkable. Mucous membranes are moist. No oral lesions. Neck supple. Full range of motion. No adenopathy thyromegaly or neck vein distention. Cardiovascular examination reveals regular rhythm rate. S1-S2 normal. No S3 or S4. No discernible murmur noted. Heart rate 73 bpm. Heart sounds are distant. Lungs reveal scattered bilateral rhonchi. No wheezes or crackles. Breath sounds are equal bilaterally. Saturations are 96% on 2 L. Abdomen soft bowel sounds are heard. No masses or tenderness. Extremities are intact. No cyanosis clubbing or edema. Skin is without rash or lesion. Neurologic examination is brief but nonfocal. - Labs CBC & Chem 7: 04/12/23 06:36 04/12/23 06:36 Labs: Abnormal Lab Results - Last 24 Hours (Table) 04/12/23 04/12/23 Range/Units 06:36 06:36 RBC 3.14 L (3.80-5.40) m/uL Hgb 8.1 L (11.4-16.0) gm/dL Hct 26.4 L (34.0-46.0) % MCHC 30.7 L (31.0-37.0) g/dL RDW 19.2 H (11.5-15.5) % Lymphocytes # 0.9 L (1.0-4.8) k/uL Glucose 103 H (74-99) mg/dL Magnesium 1.4 L (1.6-2.3) mg/dL Assessment and Plan Assessment: Acute alcohol withdrawal syndrome, with acute delirium tremens, requiring intubation/mechanical ventilation, and successful extubation on 04/06/2023. Acute respiratory failure secondary to acute alcohol withdrawal syndrome. Acute aspiration pneumonia, currently on antibiotic. History of alcohol abuse. Leukocytosis, resolved. Plan: Plan dated 04/12/2023. The patient is much more stable, and clinically looks much improved. The patient continues on normal saline at 100 mL an hour. The patient's on 2 L of oxygen, with saturations of 96%. Patient did not use of BiPAP device last night. Labs, x-rays, medications are reviewed. The patient has been transiti oned from Unasyn to Augmentin. We will continue to follow make recommendations along the way. No additional recommendations at this time. Prognosis is guarded. Time with Patient: Less than 30
--- NOTE | 2023-04-12 13:22 | P.PN ---
Subjective Progress Note Date: 04/12/23 Patient is doing well today with no new complaints. Medically stable for discharge pending SNF placement. Gen: Awake, alert HEENT: normocephalic, atraumatic, good hearing acuity, moist mucous membranes Resp: good air exchange, breathing comfortably with no accessory muscle use CVS: good distal perfusion x 4, GI: soft, NTTP, ND : no SPT, no CVAT, rojo catheter is present MSK: no pitting edema, no clubbing Neuro: non-focal, moving all extremities Hospital course: Patient is a 57-year-old biological female, identified as a male, who was sent in by [facility] for suspected alcohol withdrawal with confusion. Patient reports long-standing history of alcohol abuse drinking a half to 1 pint of hard liquor daily. Patient's last drink was reportedly 36 hours ago. At [facility], he was noted to be increasingly confused, hallucinating, and somewhat shaky. The patient's blood pressure was also noted to be high. At the time of interview, the patient does not sure why he is at the hospital and says that he feels fine. Denied experiencing chest discomfort, shortness of breath, fever, chills, cough, nausea, vomiting, abdominal pain, diarrhea. In the emergency room, laboratory evaluation revealed hemoglobin of 10.8 with platelet count 245, Na 141, potassium 3.8, creatinine 1.24, magnesium 1.2, AST 51, and albumin 3.4. Patient was placed on CIWA protocol and given Ativan as needed for alcohol withdrawal. 04/03 Patient is confused. He thinks it's December. He believes he is in [place]. Attempting to get out of bed but re-directable. Given 10 mg IV ativan over the past 24H. 04/04 Patient was seen and examined. He is extremely restless today. Retaining > 600 cc urine on bladder scan. SBP consistently in the 200s. He was given 2 doses of Hydralazine 10 mg IV for hypertension. He also has low grade fevers. BMP Na 135, bicarb 18. Mag 1.3. B12 1699. Folate 13.9. TSH 2.2. Ammonia 10. 04/05 Mentation continued to worsen overnight. He was found to be minimally responsive and newly hypoxic saturating 80's on 4-6L NC. Incremental doses of flumazelin was given with minimal improvement. ABG showed pO2 of 40. D-Dimer e levated at 2.0. CTA chest was ordered which was negative for PE but findings of aspiration pneumonia. CT brain negative for acute pathology. He was eventually intubated to protect his airway and moved to ICU. This morning he is febrile with Tmax 103.1, hypotensive with BP 85/49, RR 28, saturating 99% on mechanical ventilation. Propofol at 20 mcg/kg/min for sedation. Unasyn started for aspiration PNA. 04/06 Patient continues to be intubated. He was on levophed overnight for hypotension for a short period of time which has been weaned off this morning. CBC WBC 12.5, Hg 8. ABG pH 7.47, pCO2 32. BMP Na 135, Cl 108, bicarb 21, BUN 23, Cr 1.36, Ca 7.1. Procal elevated at 1.55. CXR shows right lower lobe infiltrate. Antibiotics include Unasyn for coverage of aspiration PNA. Sedated with propofol. Assessment/plan: Acute hypoxic respiratory failure Sepsis due to aspiration pneumonia -Continue antibiotics: Unasyn transitioned to augmentin, today is day 7 of abx - anticipate 10 day course -Blood culture reviewed, no growth to date -CBC today shows no WBC, stable Hgb, low lymphocytes but improving HTN urgency, now controlled - clevidipine gtt d/c'd - continue amlodipine 5mg BID - lisinopril 20mg daily - continue hydralazine 25 mg twice a day - agree with metoprolol 25mg twice a day Acute metabolic encephalopathy Delirium tremens -Ativan when necessary was discontinued due to second and third episode of oversedation with benzo - outside of window of withdrawal at this point Acute kidney injury secondary to hypotension, resolved Urinary retention -Rojo catheter is in place after failed TOV on 04/10 -Creatinine today shows value of 0.95 -Hypotension has resolved Normocytic anemia Hypomagnesemia -Medications have been reconciled -additional 4gm of magnesium today Patient is full code Dispo: Patient is medically stable for discharge, CM is working on SNF placement for rehab due to weakness from prolonged hospitalization Objective - Vital Signs Vital signs: Vital Signs Temp 98.2 F 04/12/23 11:52 Pulse 73 04/12/23 11:52 Resp 18 04/12/23 11:52 BP 150/83 04/12/23 11:52 Pulse Ox 96 04/12/23 11:52 FiO2 40 04/12/23 08:59 Intake & Output 04/11/23 04/12/23 04/12/23 18:59 06:59 18:59 Intake Total 360 540 Output Total 813 079 8118 Balance -953 -682 -587 Weight 78.1 kg Intake: Oral 360 540 Output: Urine 052 370 0248 Other: Voiding Method Indwelling Catheter Indwelling Catheter Indwelling Catheter # Voids 0 # Bowel Movements 0 - Labs CBC & Chem 7: 04/12/23 06:36 04/12/23 06:36 Labs: Abnormal Lab Results - Last 24 Hours (Table) 04/12/23 04/12/23 Range/Units 06:36 06:36 RBC 3.14 L (3.80-5.40) m/uL Hgb 8.1 L (11.4-16.0) gm/dL Hct 26.4 L (34.0-46.0) % MCHC 30.7 L (31.0-37.0) g/dL RDW 19.2 H (11.5-15.5) % Lymphocytes # 0.9 L (1.0-4.8) k/uL Glucose 103 H (74-99) mg/dL Magnesium 1.4 L (1.6-2.3) mg/dL
[2023-04-13] MEDS: SODIUM CHLORIDE 0.9% 1,000 ML IV SCH ×2 (00:04→07:20)
[2023-04-13] MEDS: amLODIPine 5 MG TAB PO SCH ×2 (07:34→19:45)
[2023-04-13] MEDS: AMOXIC-POT CLAV 875-125MG 1 EACH TAB PO SCH ×2 (07:34→19:48)
[2023-04-13] MEDS: METOPROLOL TARTRATE 25 MG TAB PO SCH ×2 (07:34→19:45)
[2023-04-13] MEDS: lisinopriL 20 MG TAB PO SCH (07:34)
[2023-04-13] MEDS: PANTOPRAZOLE 40 MG/10 ML VIAL IVP SCH ×2 (07:34→19:45)
[2023-04-13] MEDS: ENOXAPARIN 40 MG/0.4 ML SYRINGE SQ SCH (07:34)
[2023-04-13] MEDS: THIAMINE 100 MG TAB PO SCH (07:34)
[2023-04-13] MEDS: hydrALAZINE HCL 25 MG TAB PO SCH ×2 (07:34→19:45)
--- NOTE | 2023-04-13 11:50 | P.PN ---
Subjective Progress Note Date: 04/13/23 Principal diagnosis: Alcohol withdrawal syndrome. Reevaluated today on 04/09/23, patient remains in the ICU, doing well, no specific complaints over the last 24 hours. Patient is on 6 L nasal cannula, on clevidipine at 3 mg/h which I will discontinue since the patient is now on oral Norvasc and is also on clonidine. His also on beta blockers. These could be adjusted accordingly. Patient remains on Unasyn for presumptive aspiration pneumonia. Chest x-ray is showing improvement in his by basilar infiltrates. WBC count is 12.6 hemoglobin 8.7 and electrolytes are normal renal profile is normal Reevaluated today on 04/10/23, patient is now on the medical floor, doing well, relatively asymptomatic, no evidence of any symptoms to suggest alcohol withdrawal. Remains on the CIWA protocol. CBC is relatively normal basic metabolic profile is normal, magnesium is 1.4 being addressed accordingly. Last chest x-ray from yesterday showed minimal infiltrates at the bases and subsegmental atelectasis improved compared to previous x-rays Patient was reevaluated today on 04/11/23, patient seems to be doing much better today compared to the last few days, yesterday I was notified about this patient and I recommended placing him on BiPAP overnight because he was having shallow breathing and he was difficult to arouse after he received sedation for his alcohol withdrawal. Today the patient is on nasal cannula, does not seem to be in any distress, patient seems to be called, blood pressure is under control with amlodipine, lisinopril, and hydralazine as well as metoprolol. Chest x-ray is showing slight improvement in his bilateral arms./Aspiration pneumonia patien t has been on antibiotics all along, and he has no active pulmonary symptoms at present. Could consider transitioning the patient to Augmentin instead of Unasyn when times comes to discharge the patient to a rehab facility my understanding and the patient may be going to rehab in the next 24 hours. Progress note dated 04/12/2023. 57-year-old male seen today in room 353. Currently, the patient's receiving saline at 100 mL an hour. The patient did not use the BiPAP device last night. He is on nasal O2, at 2 L. He is feeling much better, and is currently not manifesting any signs or symptoms of alcohol withdrawal syndrome. Current laboratory data includes a white count 7.9, hemoglobin 8.1, hematocrit 26.4, and a platelet count of 386,000. Sodium 137, potassium 3.7, chlorides 104, CO2 26, anion gap 7, BUN 14, creatinine 0.95. The patient's glucose 103. The magnesium level was 1.4. Blood and sputum sampling is thus far negative. Chest x-ray reveals bilateral basilar infiltrates, left greater than right. The chest x-ray is stable. Progress note dated 04/13/2023. 57-year-old seen in room 353. Currently, the patient is on room air. He's not receiving any IV fluids. From the pulmonary/critical care standpoint, the patient is doing much better, and could be considered for possible discharge. We will leave that up to the primary service. He is not manifesting any signs or symptoms of alcohol withdrawal syndrome. No new laboratory data today. Laboratory data from April 12 are reviewed. Clinically, he feels much improved. Objective - Vital Signs Vital signs: Vital Signs Temp 98.5 F 04/13/23 08:00 Pulse 81 04/13/23 08:00 Resp 18 04/13/23 08:00 BP 161/95 04/13/23 08:00 Pulse Ox 95 04/13/23 08:00 FiO2 40 04/12/23 08:59 Intake & Output 04/12/23 04/13/23 04/13/23 18:59 06:59 18:59 Intake Total 880 1100 420 Output Total 1950 600 500 Balance -1070 500 -80 Weight 78.1 kg Intake: Oral 880 1100 420 Output: Urine 1950 600 500 Other: Voiding Method Indwelling Catheter Indwelling Catheter Indwelling Catheter # Voids 0 # Bowel Movements 1 1 - Exam No acute distress, oriented 3. Currently on room air. HEENT examination is grossly unremarkable. Mucous membranes are moist. No oral lesions. Neck supple. Full range of motion. No adenopathy thyromegaly or neck vein distention. Cardiovascular examination reveals regular rhythm rate. S1-S2 normal. No S3 or S4. No discernible murmur noted. Heart rate 81 bpm. Heart sounds are distant. Lungs reveal scattered bilateral rhonchi. No wheezes or crackles. Breath sounds are equal bilaterally. Saturations are 95% on room air. Abdomen soft bowel sounds are heard. No masses or tenderness. Extremities are intact. No cyanosis clubbing or edema. Skin is without rash or lesion. Neurologic examination is brief but nonfocal. - Labs CBC & Chem 7: 04/12/23 06:36 04/12/23 06:36 Assessment and Plan Assessment: Acute alcohol withdrawal syndrome, with acute delirium tremens, requiring intu bation/mechanical ventilation, and successful extubation on 04/06/2023. Acute respiratory failure secondary to acute alcohol withdrawal syndrome. Acute aspiration pneumonia, currently on antibiotic. History of alcohol abuse. Leukocytosis, resolved. Plan: Plan dated 04/12/2023. The patient is much more stable, and clinically looks much improved. The patient continues on normal saline at 100 mL an hour. The patient's on 2 L of oxygen, with saturations of 96%. Patient did not use of BiPAP device last night. Labs, x-rays, medications are reviewed. The patient has been trans itioned from Unasyn to Augmentin. We will continue to follow make recommendations along the way. No additional recommendations at this time. Prognosis is guarded. Plan dated 04/13/2023. The patient appears much better. He is not receiving any IV fluids. Yesterday, he was on saline at 100 mL an hour. Yesterday, the patient was on 2 L of oxygen. Today, he's been weaned down to room air, with saturations of 95%. Labs, x-rays, medications are reviewed. Clinically he feels much better. He is not manifesting any signs or symptoms of alcohol withdrawal syndrome. We will continue to follow make recommendations along the way. Prognosis is guarded. Time with Patient: Less than 30
--- NOTE | 2023-04-13 12:08 | P.DS ---
Providers Date of admission: 04/02/23 04:07 Expected date of discharge: 04/13/23 Attending physician: Cesilia Sidhu MD Consults: 04/05/23 02:19 Consult Physician Routine Consulting Provider: Mita Orozco Consult Reason/Comments: ICU MNGMT Do you want consulting provider notified?: Already Contacted Primary care physician: Physician Nonstaff Hospital Course: Patient is a 57-year-old biological female, identified as a male, who was sent in by [facility] for suspected alcohol withdrawal with confusion. Patient reports long-standing history of alcohol abuse drinking a half to 1 pint of hard liquor daily. Patient's last drink was reportedly 36 hours ago. At [facility], he was noted to be increasingly confused, hallucinating, and somewhat shaky. The patient's blood pressure was also noted to be high. At the time of interview, the patient does not sure why he is at the hospital and says that he feels fine. Denied experiencing chest discomfort, shortness of breath, fever, chills, cough, nausea, vomiting, abdominal pain, diarrhea. In the emergency room, laboratory evaluation revealed hemoglobin of 10.8 with platelet count 245, Na 141, potassium 3.8, creatinine 1.24, magnesium 1.2, AST 51, and albumin 3.4. Patient was placed on CIWA protocol and given Ativan as needed for alcohol withdrawal. 04/03 Patient is confused. He thinks it's December. He believes he is in [place]. Attempting to get out of bed but re-directable. Given 10 mg IV ativan over the past 24H. 04/04 Patient was seen and examined. He is extremely restless today. Retaining > 600 cc urine on bladder scan. SBP consistently in the 200s. He was given 2 doses of Hydralazine 10 mg IV for hypertension. He also has low grade fevers. BMP Na 135, bicarb 18. Mag 1.3. B12 1699. Folate 13.9. TSH 2.2. Ammonia 10. 04/05 Mentation continued to worsen overnight. He was found to be minimally responsive and newly hypoxic saturating 80's on 4-6L NC. Incremental doses of flumazelin was given with minimal improvement. ABG showed pO2 of 40. D-Dimer elevated at 2.0. CTA chest was ordered which was negative for PE but findings of aspiration pneumonia. CT brain negative for acute pathology. He was eventually intubated to protect his airway and moved to ICU. This morning he is febrile with Tmax 103.1, hypotensive with BP 85/49, RR 28, saturating 99% on mechanical ventilation. Propofol at 20 mcg/kg/min for sedation. Unasyn started for aspiration PNA. 04/06 Patient continues to be intubated. He was on levophed overnight for hypotension for a short period of time which has been weaned off this morning. CBC WBC 12.5, Hg 8. ABG pH 7.47, pCO2 32. BMP Na 135, Cl 108, bicarb 21, BUN 23, Cr 1.36, Ca 7.1. Procal elevated at 1.55. CXR shows right lower lobe infiltrate. Antibiotics include Unasyn for coverage of aspiration PNA. Sedated with propofol. Extubated on 04/06 and started on a Precedex drip which was eventually weaned off. Unasyn transitioned to Augmentin. Weaned off a clevidipine drip for hypertension, started on Amlodipine, Hydralazine, Lisinopril, Metoprolol. He did require BiPAP for hypoxia and obtundation on 04/10 after receiving Ativan which was weaned off the following morning. PT and OT recommended SNF. Plans for SNF once insurance authorization obtained. 04/13 Patient was seen and examined. No acute events overnight. Complains of feeling tired. No other complaints. Pertinent studies include Brain CT, CXR, Chest CTA, Venous doppler Pertinent procedures include intubation/extubation. Gen: Awake, alert HEENT: normocephalic, atraumatic, good hearing acuity, moist mucous membranes Resp: good air exchange, breathing comfortably with no accessory muscle use CVS: good distal perfusion x 4 GI: soft, NTTP, ND : no SPT, no CVAT, rojo catheter is present MSK: no pitting edema, no clubbing Neuro: non-focal, moving all extremities Discharge Diagnosis: Acute hypoxic respiratory failure Sepsis due to aspiration pneumonia HTN urgency, now controlled Acute metabolic encephalopathy Delirium tremens Acute kidney injury secondary to hypotension, resolved Urinary retention Normocytic anemia Hypomagnesemia This complex discharge took 35 minutes to complete. Patient Condition at Discharge: Stable Plan - Discharge Summary Discharge Rx Participant: No New Discharge Prescriptions: No Action Acetaminophen Tab [Tylenol] 650 mg PO QID PRN PRN Reason: Pain Chlorpheniramine Maleate [Chlor-Trimeton] 4 mg PO Q4H PRN PRN Reason: Allergy Symptoms Famotidine [Pepcid] 40 mg PO BID@0600,1800 traZODone HCL [Desyrel] 50 - 150 mg PO HS ondansetron HCL [Zofran] 8 mg PO Q6H PRN PRN Reason: Nausea Calcium/Mag/Zinc/D3 1 tab PO TID Mylanta 30 ml PO Q4H PRN PRN Reason: Gi Upset carvediloL [Coreg*] 12.5 mg PO BID@0600,1800 cloNIDine HCL [Catapres] 0.1 - 0.3 mg PO Q4H PRN PRN Reason: Hypertension Ibuprofen [Motrin Ib] 600 mg PO Q6H PRN PRN Reason: Pain Loperamide [Imodium] 2 - 4 mg PO QID PRN PRN Reason: Diarrhea Multivitamins, Thera [Multivitamin (formulary)] 1 tab PO DAILY PRN PRN Reason: SUPPLEMENT Thiamine [Vitamin B-1] 100 mg PO DAILY PRN PRN Reason: SUPPLEMENT Discharge Medication List ondansetron HCL [Zofran] 8 mg PO Q6H PRN 03/17/23 [History] Acetaminophen Tab [Tylenol] 650 mg PO QID PRN 04/02/23 [History] Calcium/Mag/Zinc/D3 1 tab PO TID 04/02/23 [History] Chlorpheniramine Maleate [Chlor-Trimeton] 4 mg PO Q4H PRN 04/02/23 [History] Famotidine [Pepcid] 40 mg PO BID@0600,1800 04/02/23 [History] Ibuprofen [Motrin Ib] 600 mg PO Q6H PRN 04/02/23 [History] Loperamide [Imodium] 2 - 4 mg PO QID PRN 04/02/23 [History] Multivitamins, Thera [Multivitamin (formulary)] 1 tab PO DAILY PRN 04/02/23 [History] Mylanta 30 ml PO Q4H PRN 04/02/23 [History] Thiamine [Vitamin B-1] 100 mg PO DAILY PRN 04/02/23 [History] carvediloL [Coreg*] 12.5 mg PO BID@0600,1800 04/02/23 [History] cloNIDine HCL [Catapres] 0.1 - 0.3 mg PO Q4H PRN 04/02/23 [History] traZODone HCL [Desyrel] 50 - 150 mg PO HS 04/02/23 [History] Follow up Appointment(s)/Referral(s): Nonstaff,Physician [Primary Care Provider] - 1-2 days
[2023-04-14] MEDS: ENOXAPARIN 40 MG/0.4 ML SYRINGE SQ SCH (08:16)
[2023-04-14] MEDS: hydrALAZINE HCL 25 MG TAB PO SCH ×2 (08:16→21:56)
[2023-04-14] MEDS: lisinopriL 20 MG TAB PO SCH (08:16)
[2023-04-14] MEDS: THIAMINE 100 MG TAB PO SCH (08:16)
[2023-04-14] MEDS: METOPROLOL TARTRATE 25 MG TAB PO SCH ×2 (08:16→21:56)
[2023-04-14] MEDS: amLODIPine 5 MG TAB PO SCH ×2 (08:16→21:56)
[2023-04-14] MEDS: PANTOPRAZOLE 40 MG/10 ML VIAL IVP SCH ×2 (08:17→21:56)
--- NOTE | 2023-04-14 09:07 | P.PN ---
Subjective Progress Note Date: 04/14/23 Patient is a 57-year-old biological female, identified as a male, who was sent in by [facility] for suspected alcohol withdrawal with confusion. Patient reports long-standing history of alcohol abuse drinking a half to 1 pint of hard liquor daily. Patient's last drink was reportedly 36 hours ago. At [facility], he was noted to be increasingly confused, hallucinating, and somewhat shaky. The patient's blood pressure was also noted to be high. At the time of interview, the patient does not sure why he is at the hospital and says that he feels fine. Denied experiencing chest discomfort, shortness of breath, fever, chills, cough, nausea, vomiting, abdominal pain, diarrhea. In the emergency room, laboratory evaluation revealed hemoglobin of 10.8 with platelet count 245, Na 141, potassium 3.8, creatinine 1.24, magnesium 1.2, AST 51, and albumin 3.4. Patient was placed on CIWA protocol and given Ativan as needed for alcohol withdrawal. 04/03 Patient is confused. He thinks it's December. He believes he is in [place]. Attempting to get out of bed but re-directable. Given 10 mg IV ativan over the past 24H. 04/04 Patient was seen and examined. He is extremely restless today. Retaining > 600 cc urine on bladder scan. SBP consistently in the 200s. He was given 2 doses of Hydralazine 10 mg IV for hypertension. He also has low grade fevers. BMP Na 135, bicarb 18. Mag 1.3. B12 1699. Folate 13.9. TSH 2.2. Ammonia 10. 04/05 Mentation continued to worsen overnight. He was found to be minimally responsive and newly hypoxic saturating 80's on 4-6L NC. Incremental doses of flumazelin was given with minimal improvement. ABG showed pO2 of 40. D-Dimer elevated at 2.0. CTA chest was ordered which was negative for PE but findings of aspiration pneumonia. CT brain negative for acute pathology. He was eventually intubated to protect his airway and moved to ICU. This morning he is febrile with Tmax 103.1, hypotensive with BP 85/49, RR 28, saturating 99% on mechanical ventilation. Propofol at 20 mcg/kg/min for sedation. Unasyn started for aspiration PNA. 04/06 Patient continues to be intubated. He was on levophed overnight for hypotension for a short period of time which has been weaned off this morning. CBC WBC 12.5, Hg 8. ABG pH 7.47, pCO2 32. BMP Na 135, Cl 108, bicarb 21, BUN 23, Cr 1.36, Ca 7.1. Procal elevated at 1.55. CXR shows right lower lobe infiltrate. Antibiotics include Unasyn for coverage of aspiration PNA. Sedated with propofol. Extubated on 04/06 and started on a Precedex drip which was eventually weaned off. Unasyn transitioned to Augmentin. Weaned off a clevidipine drip for hypertension, started on Amlodipine, Hydralazine, Lisinopril, Metoprolol. He did require BiPAP for hypoxia and obtundation on 04/10 after receiving Ativan which was weaned off the following morning. PT and OT recommended SNF. Plans for SNF once insurance authorization obtained. 04/14 Patient was seen and examined. No acute events overnight. Pleasantly confused. Case management informed me yesterday his Medicaid was terminated during this admission. He is unsafe for discharge home. Medically stable. Pertinent studies include Brain CT, CXR, Chest CTA, Venous doppler Pertinent procedures include intubation/extubation. Gen: Awake, alert HEENT: normocephalic, atraumatic, good hearing acuity, moist mucous membranes Resp: good air exchange, breathing comfortably with no accessory muscle use CVS: good distal perfusion x 4 GI: soft, NTTP, ND : no SPT, no CVAT, rojo catheter is present MSK: no pitting edema, no clubbing Neuro: non-focal, moving all extremities Acute hypoxic respiratory failure Sepsis due to aspiration pneumonia HTN urgency, now controlled Acute metabolic encephalopathy Delirium tremens Acute kidney injury secondary to hypotension, resolved Urinary retention Normocytic anemia Hypomagnesemia Based on my assessment of this patient, this patient meets a moderate complexity level of care. Patient has a history of alcohol abuse with severe exacerbation or progression of disease which poses a threat to life or bodily function. Currently has delirium tremens with hypertensive urgency. Intubated on 04/05. Treated for aspiration PNA. Acute hypoxic respiratory failure: Resolved Sepsis due to aspiration pneumonia: Continue Augmentin by mouth. HTN urgency, now controlled: Amlodipine 5 mg PO BID. Hydralazine 25 mg PO BID. Lisinopril 20 mg PO QD. Metoprolol 25 mg PO BID. Acute metabolic encephalopathy Delirium tremens: Resolved. Discontinue Ativan. Acute kidney injury secondary to hypotension: Resolved Urinary retention: Voiding trial. Normocytic anemia: Transfuse if Hg < 7. No signs of active bleeding. Hypomagnesemia: Replace via protocol. I have reviewed the following health analytics consultant notes: Pulmonology note. I have reviewed the results of the following tests: I have ordered the following tests: I have discussed the care of this patient with the following independent historian: Discussed with RN. Discussed with case management. I have independently interpreted the following test below: I have discussed the management of this patient with the following physician: Objective - Vital Signs Vital signs: Vital Signs Temp 98.4 F 04/14/23 07:51 Pulse 88 04/14/23 07:51 Resp 17 04/14/23 07:51 BP 149/95 04/14/23 07:51 Pulse Ox 100 04/14/23 07:51 FiO2 40 04/12/23 08:59 Intake & Output 04/13/23 04/14/23 04/14/23 18:59 06:59 18:59 Intake Total 660 20 Output Total 1025 1150 Balance -365 -1150 20 Intake: Oral 660 20 Output: Urine 1025 1150 Other: Voiding Method Indwelling Catheter Indwelling Catheter # Bowel Movements 1 - Labs CBC & Chem 7: 04/12/23 06:36 04/12/23 06:36
[2023-04-14] MEDS: AMOXIC-POT CLAV 875-125MG 1 EACH TAB PO SCH ×2 (11:38→21:56)
--- NOTE | 2023-04-14 11:38 | P.PN ---
Subjective Progress Note Date: 04/14/23 Reevaluated today on 04/09/23, patient remains in the ICU, doing well, no specific complaints over the last 24 hours. Patient is on 6 L nasal cannula, on clevidipine at 3 mg/h which I will discontinue since the patient is now on oral Norvasc and is also on clonidine. His also on beta blockers. These could be adjusted accordingly. Patient remains on Unasyn for presumptive aspiration pneumonia. Chest x-ray is showing improvement in his by basilar infiltrates. WBC count is 12.6 hemoglobin 8.7 and electrolytes are normal renal profile is normal Reevaluated today on 04/10/23, patient is now on the medical floor, doing well, relatively asymptomatic, no evidence of any symptoms to suggest alcohol wi thdrawal. Remains on the CIWA protocol. CBC is relatively normal basic metabolic profile is normal, magnesium is 1.4 being addressed accordingly. Last chest x-ray from yesterday showed minimal infiltrates at the bases and subsegmental atelectasis improved compared to previous x-rays Patient was reevaluated today on 04/11/23, patient seems to be doing much better today compared to the last few days, yesterday I was notified about this patient and I recommended placing him on BiPAP overnight because he was having shallow breathing and he was difficult to arouse after he received sedation for his alcohol withdrawal. Today the patient is on nasal cannula, does not seem to be in any distress, patient seems to be called, blood pressure is under control with amlodipine, lisinopril, and hydralazine as well as metoprolol. Chest x-ray is showing slight improvement in his bilateral arms./Aspiration pneumonia patient has been on antibiotics all along, and he has no active pulmonary symptoms at present. Could consider transitioning the patient to Augmentin instead of Unasyn when times comes to discharge the patient to a rehab facility my understanding and the patient may be going to rehab in the next 24 hours. Progress note dated 04/12/2023. 57-year-old male seen today in room 353. Currently, the patient's receiving saline at 100 mL an hour. The patient did not use the BiPAP device last night. He is on nasal O2, at 2 L. He is feeling much better, and is currently not manifesting any signs or symptoms of alcohol withdrawal syndrome. Current laboratory data includes a white count 7.9, hemoglobin 8.1, hematocrit 26.4, and a platelet count of 386,000. Sodium 137, potassium 3.7, chlorides 104, CO2 26, anion gap 7, BUN 14, creatinine 0.95. The patient's glucose 103. The magnesium level was 1.4. Blood and sputum sampling is thus far negative. Chest x-ray reveals bilateral basilar infiltrates, left greater than right. The chest x-ray is stable. Progress note dated 04/13/2023. 57-year-old seen in room 353. Currently, the patient is on room air. He's not receiving any IV fluids. From the pulmonary/critical care standpoint, the patient is doing much better, and could be considered for possible discharge. We will leave that up to the primary service. He is not manifesting any signs or symptoms of alcohol withdrawal syndrome. No new laboratory data today. Laboratory data from April 12 are reviewed. Clinically, he feels much improved. The patient is seen today 04/14/2023 in follow-up on the regular medical floor. He is currently sitting up at the site. Awake and alert in no acute distress. He is maintaining good O2 saturations up to 100% on room air. He's afebrile. Hemodynamically stable. Sputum culture revealed no growth. Blood cultures revealed no growth. He is continued on Augmentin. Lovenox for DVT prophylaxis. No new labs today. Awaiting placement for subacute rehabilitation. Objective - Vital Signs Vital signs: Vital Signs Temp 98.4 F 04/14/23 07:51 Pulse 70 04/14/23 09:55 Resp 17 04/14/23 08:00 BP 132/78 04/14/23 09:55 Pulse Ox 97 04/14/23 09:55 FiO2 40 04/12/23 08:59 Intake & Output 04/13/23 04/14/23 04/14/23 18:59 06:59 18:59 Intake Total 660 20 Output Total 1025 1150 Balance -365 -1150 20 Intake: Oral 660 20 Output: Urine 1025 1150 Other: Voiding Method Indwelling Catheter Indwelling Catheter Indwelling Catheter # Bowel Movements 1 - Exam GENERAL EXAM: Alert, 57-year-old male, on room air, comfortable in no apparent distress. HEAD: Normocephalic. EYES: Normal reaction of pupils, equal size. NOSE: Clear with pink turbinates. THROAT: No erythema or exudates. NECK: No masses, no JVD. CHEST: No chest wall deformity. LUNGS: Equal air entry with no crackles, wheeze, rhonchi or dullness. CVS: S1 and S2 normal with no audible murmur, regular rhythm. ABDOMEN: No hepatosplenomegaly, normal bowel sounds, no guarding or rigidity. SPINE: No scoliosis or deformity SKIN: No rashes CENTRAL NERVOUS SYSTEM: No focal deficits, tone is normal in all 4 extremities. EXTREMITIES: There is no peripheral edema. No clubbing, no cyanosis. Peripheral pulses are intact. - Labs CBC & Chem 7: 04/12/23 06:36 04/12/23 06:36 Assessment and Plan Assessment: Acute alcohol withdrawal syndrome, with acute delirium tremens, requiring intubation/mechanical ventilation, and successful extubation on 04/06/2023. Acute respiratory failure secondary to acute alcohol withdrawal syndrome. Recovered and on room air Acute aspiration pneumonia, currently on Augmentin. History of alcohol abuse. Leukocytosis, resolved. Plan: The patient was seen and evaluated Currently stable and on room air Lovenox for DVT prophylaxis Continued on Augmentin Increase his activity as tolerated Awaiting placement in subacute rehabilitation This patient was seen independently by the nurse practitioner I have personally seen and examined the patient, performed the documentation and the assessment and plan as written. Number of minutes spent on the visit: 22.
[2023-04-15] MEDS: hydrALAZINE HCL 25 MG TAB PO SCH ×2 (08:56→20:27)
[2023-04-15] MEDS: ENOXAPARIN 40 MG/0.4 ML SYRINGE SQ SCH (08:56)
[2023-04-15] MEDS: lisinopriL 20 MG TAB PO SCH (08:56)
[2023-04-15] MEDS: amLODIPine 5 MG TAB PO SCH ×2 (08:56→20:27)
[2023-04-15] MEDS: METOPROLOL TARTRATE 25 MG TAB PO SCH ×2 (08:56→20:27)
[2023-04-15] MEDS: THIAMINE 100 MG TAB PO SCH (08:56)
--- NOTE | 2023-04-15 11:14 | P.PN ---
Subjective Progress Note Date: 04/15/23 Patient is a 57-year-old biological female, identified as a male, who was sent in by [facility] for suspected alcohol withdrawal with confusion. Patient reports long-standing history of alcohol abuse drinking a half to 1 pint of hard liquor daily. Patient's last drink was reportedly 36 hours ago. At [facility], he was noted to be increasingly confused, hallucinating, and somewhat shaky. The patient's blood pressure was also noted to be high. At the time of interview, the patient does not sure why he is at the hospital and says that he feels fine. Denied experiencing chest discomfort, shortness of breath, fever, chills, cough, nausea, vomiting, abdominal pain, diarrhea. In the emergency room, laboratory evaluation revealed hemoglobin of 10.8 with platelet count 245, Na 141, potassium 3.8, creatinine 1.24, magnesium 1.2, AST 51, and albumin 3.4. Patient was placed on CIWA protocol and given Ativan as needed for alcohol withdrawal. 04/03 Patient is confused. He thinks it's December. He believes he is in [facility]. Attempting to get out of bed but re-directable. Given 10 mg IV ativan over the past 24H. 04/04 Patient was seen and examined. He is extremely restless today. Retaining > 600 cc urine on bladder scan. SBP consistently in the 200s. He was given 2 doses of Hydralazine 10 mg IV for hypertension. He also has low grade fevers. BMP Na 135, bicarb 18. Mag 1.3. B12 1699. Folate 13.9. TSH 2.2. Ammonia 10. 04/05 Mentation continued to worsen overnight. He was found to be minimally responsive and newly hypoxic saturating 80's on 4-6L NC. Incremental doses of flumazelin was given with minimal improvement. ABG showed pO2 of 40. D-Dimer elevated at 2.0. CTA chest was ordered which was negative for PE but findings of aspiration pneumonia. CT brain negative for acute pathology. He was eventually intubated to protect his airway and moved to ICU. This morning he is febrile with Tmax 103.1, hypotensive with BP 85/49, RR 28, saturating 99% on mechanical ventilation. Propofol at 20 mcg/kg/min for sedation. Unasyn started for aspiration PNA. 04/06 Patient continues to be intubated. He was on levophed overnight for hypotension for a short period of time which has been weaned off this morning. CBC WBC 12.5, Hg 8. ABG pH 7.47, pCO2 32. BMP Na 135, Cl 108, bicarb 21, BUN 23, Cr 1.36, Ca 7.1. Procal elevated at 1.55. CXR shows right lower lobe infiltrate. Antibiotics include Unasyn for coverage of aspiration PNA. Sedated with propofol. Extubated on 04/06 and started on a Precedex drip which was eventually weaned off. Unasyn transitioned to Augmentin. Weaned off a clevidipine drip for hypertension, started on Amlodipine, Hydralazine, Lisinopril, Metoprolol. He did require BiPAP for hypoxia and obtundation on 04/10 after receiving Ativan which was weaned off the following morning. PT and OT recommended SNF. Plans for SNF once insurance authorization obtained. 04/14 Patient was seen and examined. No acute events overnight. Pleasantly confused. Case management informed me yesterday his Medicaid was terminated during this admission. He is unsafe for discharge home. Medically stable. 04/15 Patient was seen and examined. No acute events overnight. Pleasantly confused. Refusing telemetry. Pertinent studies include Brain CT, CXR, Chest CTA, Venous doppler Pertinent procedures include intubation/extubation. Gen: Awake, alert HEENT: normocephalic, atraumatic, good hearing acuity, moist mucous membranes Resp: good air exchange, breathing comfortably with no accessory muscle use CVS: good distal perfusion x 4 GI: soft, NTTP, ND : no SPT, no CVAT, rojo catheter is present MSK: no pitting edema, no clubbing Neuro: non-focal, moving all extremities Acute hypoxic respiratory failure, resolved Sepsis due to aspiration pneumonia, resolved HTN urgency, resolved Acute metabolic encephalopathy, resolving Delirium tremens, resolved Acute kidney injury secondary to hypotension, resolved Urinary retention Normocytic anemia Hypomagnesemia Based on my assessment of this patient, this patient meets a moderate complexity level of care. Patient has a history of alcohol abuse with severe exacerbation or progression of disease which poses a threat to life or bodily function. Currently has delirium tremens with hypertensive urgency. Intubated on 04/05. Treated for aspiration PNA. Acute hypoxic respiratory failure: Resolved Sepsis due to aspiration pneumonia: Continue Augmentin by mouth. HTN urgency, now controlled: Amlodipine 5 mg PO BID. Hydralazine 25 mg PO BID. Lisinopril 20 mg PO QD. Metoprolol 25 mg PO BID. Acute metabolic encephalopathy Delirium tremens: Resolved. Discontinue Ativan. Acute kidney injury secondary to hypotension: Resolved Urinary retention: Voiding trial. Normocytic anemia: Transfuse if Hg < 7. No signs of active bleeding. Hypomagnesemia: Replace via protocol. I have reviewed the following strategy consultant notes: Pulmonology note. I have reviewed the results of the following tests: I have ordered the following tests: I have discussed the care of this patient with the following independent historian: Discussed with RN. Discussed with case management. I have independently interpreted the following test below: I have discussed the management of this patient with the following physician: Objective - Vital Signs Vital signs: Vital Signs Temp 97.6 F 04/15/23 07:52 Pulse 76 04/15/23 07:52 Resp 17 04/15/23 07:52 BP 119/78 04/15/23 07:52 Pulse Ox 99 04/15/23 07:52 FiO2 40 04/12/23 08:59 Intake & Output 04/14/23 04/15/23 04/15/23 18:59 06:59 18:59 Intake Total 20 Output Total 400 Balance -380 Intake: Oral 20 Output: Urine 400 Other: Voiding Method Indwelling Catheter # Bowel Movements 1 - Labs CBC & Chem 7: 04/12/23 06:36 04/12/23 06:36
--- NOTE | 2023-04-15 11:31 | P.PN ---
Subjective Progress Note Date: 04/15/23 Reevaluated today on 04/09/23, patient remains in the ICU, doing well, no specific complaints over the last 24 hours. Patient is on 6 L nasal cannula, on clevidipine at 3 mg/h which I will discontinue since the patient is now on oral Norvasc and is also on clonidine. His also on beta blockers. These could be adjusted accordingly. Patient remains on Unasyn for presumptive aspiration pneumonia. Chest x-ray is showing improvement in his by basilar infiltrates. WBC count is 12.6 hemoglobin 8.7 and electrolytes are normal renal profile is normal Reevaluated today on 04/10/23, patient is now on the medical floor, doing well, relatively asymptomatic, no evidence of any symptoms to suggest alcohol wi thdrawal. Remains on the CIWA protocol. CBC is relatively normal basic metabolic profile is normal, magnesium is 1.4 being addressed accordingly. Last chest x-ray from yesterday showed minimal infiltrates at the bases and subsegmental atelectasis improved compared to previous x-rays Patient was reevaluated today on 04/11/23, patient seems to be doing much better today compared to the last few days, yesterday I was notified about this patient and I recommended placing him on BiPAP overnight because he was having shallow breathing and he was difficult to arouse after he received sedation for his alcohol withdrawal. Today the patient is on nasal cannula, does not seem to be in any distress, patient seems to be called, blood pressure is under control with amlodipine, lisinopril, and hydralazine as well as metoprolol. Chest x-ray is showing slight improvement in his bilateral arms./Aspiration pneumonia patient has been on antibiotics all along, and he has no active pulmonary symptoms at present. Could consider transitioning the patient to Augmentin instead of Unasyn when times comes to discharge the patient to a rehab facility my understanding and the patient may be going to rehab in the next 24 hours. Progress note dated 04/12/2023. 57-year-old male seen today in room 353. Currently, the patient's receiving saline at 100 mL an hour. The patient did not use the BiPAP device last night. He is on nasal O2, at 2 L. He is feeling much better, and is currently not manifesting any signs or symptoms of alcohol withdrawal syndrome. Current laboratory data includes a white count 7.9, hemoglobin 8.1, hematocrit 26.4, and a platelet count of 386,000. Sodium 137, potassium 3.7, chlorides 104, CO2 26, anion gap 7, BUN 14, creatinine 0.95. The patient's glucose 103. The magnesium level was 1.4. Blood and sputum sampling is thus far negative. Chest x-ray reveals bilateral basilar infiltrates, left greater than right. The chest x-ray is stable. Progress note dated 04/13/2023. 57-year-old seen in room 353. Currently, the patient is on room air. He's not receiving any IV fluids. From the pulmonary/critical care standpoint, the patient is doing much better, and could be considered for possible discharge. We will leave that up to the primary service. He is not manifesting any signs or symptoms of alcohol withdrawal syndrome. No new laboratory data today. Laboratory data from April 12 are reviewed. Clinically, he feels much improved. The patient is seen today 04/14/2023 in follow-up on the regular medical floor. He is currently sitting up at the site. Awake and alert in no acute distress. He is maintaining good O2 saturations up to 100% on room air. He's afebrile. Hemodynamically stable. Sputum culture revealed no growth. Blood cultures revealed no growth. He is continued on Augmentin. Lovenox for DVT prophylaxis. No new labs today. Awaiting placement for subacute rehabilitation. The patient is seen today 04/15/2023 in follow-up on the regular medical floor. He is awake and alert in no acute distress. He denies any worsening shortness of breath, cough or congestion. No fever or chills. No hemoptysis. Sputum culture revealed no growth. Blood cultures revealed no growth. Appendectomy remains on Augmentin. Remains on IV Protonix. Objective - Vital Signs Vital signs: Vital Signs Temp 97.6 F 04/15/23 07:52 Pulse 76 04/15/23 07:52 Resp 17 04/15/23 07:52 BP 119/78 04/15/23 07:52 Pulse Ox 99 04/15/23 07:52 FiO2 40 04/12/23 08:59 Intake & Output 04/14/23 04/15/23 04/15/23 18:59 06:59 18:59 Intake Total 20 Output Total 400 1500 Balance -380 -1500 Intake: Oral 20 Output: Urine 400 1500 Other: Voiding Method Indwelling Catheter Indwelling Catheter # Bowel Movements 1 - Exam GENERAL EXAM: Alert, pleasant 57-year-old male, on room air, resting in bed, comfortable in no apparent distress. HEAD: Normocephalic. EYES: Normal reaction of pupils, equal size. NOSE: Clear with pink turbinates. THROAT: No erythema or exudates. NECK: No masses, no JVD. CHEST: No chest wall deformity. LUNGS: Equal air entry with no crackles, wheeze, rhonchi or dullness. CVS: S1 and S2 normal with no audible murmur, regular rhythm. ABDOMEN: No hepatosplenomegaly, normal bowel sounds, no guarding or rigidity. SPINE: No scoliosis or deformity SKIN: No rashes CENTRAL NERVOUS SYSTEM: No focal deficits, tone is normal in all 4 extremities. EXTREMITIES: There is no peripheral edema. No clubbing, no cyanosis. Peripheral pulses are intact. - Labs CBC & Chem 7: 04/12/23 06:36 04/12/23 06:36 Assessment and Plan Assessment: Acute alcohol withdrawal syndrome, with acute delirium tremens, requiring intubation/mechanical ventilation, and successful extubation on 04/06/2023. Acute respiratory failure secondary to acute alcohol withdrawal syndrome. Recovered and on room air Acute aspiration pneumonia, currently on Augmentin. History of alcohol abuse. Leukocytosis, resolved. Plan: The patient was seen and evaluated Currently stable and on room air Lovenox for DVT prophylaxis Discontinue Augmentin Change IV Protonix to by mouth Awaiting placement in subacute rehabilitation once insurance is obtained This patient was seen independently by the nurse practitioner I have personally seen and examined the patient, performed the documentation and the assessment and plan as written. Number of minutes spent on the visit: 20.
[2023-04-16] MEDS: PANTOPRAZOLE 40 MG TABLET PO SCH (06:41)
[2023-04-16] MEDS: ENOXAPARIN 40 MG/0.4 ML SYRINGE SQ SCH (08:10)
[2023-04-16] MEDS: lisinopriL 20 MG TAB PO SCH (08:10)
[2023-04-16] MEDS: METOPROLOL TARTRATE 25 MG TAB PO SCH ×2 (08:10→20:09)
[2023-04-16] MEDS: amLODIPine 5 MG TAB PO SCH ×2 (08:10→20:09)
[2023-04-16] MEDS: hydrALAZINE HCL 25 MG TAB PO SCH ×2 (08:10→20:09)
[2023-04-16] MEDS: THIAMINE 100 MG TAB PO SCH (08:10)
--- NOTE | 2023-04-16 09:00 | XR ---
EXAMINATION TYPE: XR chest 2V DATE OF EXAM: 04/16/2023 8:50 AM COMPARISON: Chest radiographs from 04/11/2023 TECHNIQUE: XR chest 2V Frontal and lateral views of the chest. CLINICAL INDICATION:Female, 57 years old with history of pneumonia; FINDINGS: Lungs/Pleura: Near-complete resolution of previously noted bibasilar airspace opacities. No pneumotho rax or pleural effusion. Pulmonary vascularity: Unremarkable. Heart/mediastinum: Cardiomediastinal silhouette is unremarkable. Musculoskeletal: No acute osseous pathology. IMPRESSION: Near-complete resolution of previously noted bibasilar airspace opacities.
[2023-04-16 10:01] VITALS: RESP 16
--- NOTE | 2023-04-16 10:41 | P.PN ---
Subjective Progress Note Date: 04/16/23 Reevaluated today on 04/09/23, patient remains in the ICU, doing well, no specific complaints over the last 24 hours. Patient is on 6 L nasal cannula, on clevidipine at 3 mg/h which I will discontinue since the patient is now on oral Norvasc and is also on clonidine. His also on beta blockers. These could be adjusted accordingly. Patient remains on Unasyn for presumptive aspiration pneumonia. Chest x-ray is showing improvement in his by basilar infiltrates. WBC count is 12.6 hemoglobin 8.7 and electrolytes are normal renal profile is normal Reevaluated today on 04/10/23, patient is now on the medical floor, doing well, relatively asymptomatic, no evidence of any symptoms to suggest alcohol wi thdrawal. Remains on the CIWA protocol. CBC is relatively normal basic metabolic profile is normal, magnesium is 1.4 being addressed accordingly. Last chest x-ray from yesterday showed minimal infiltrates at the bases and subsegmental atelectasis improved compared to previous x-rays Patient was reevaluated today on 04/11/23, patient seems to be doing much better today compared to the last few days, yesterday I was notified about this patient and I recommended placing him on BiPAP overnight because he was having shallow breathing and he was difficult to arouse after he received sedation for his alcohol withdrawal. Today the patient is on nasal cannula, does not seem to be in any distress, patient seems to be called, blood pressure is under control with amlodipine, lisinopril, and hydralazine as well as metoprolol. Chest x-ray is showing slight improvement in his bilateral arms./Aspiration pneumonia patient has been on antibiotics all along, and he has no active pulmonary symptoms at present. Could consider transitioning the patient to Augmentin instead of Unasyn when times comes to discharge the patient to a rehab facility my understanding and the patient may be going to rehab in the next 24 hours. Progress note dated 04/12/2023. 57-year-old male seen today in room 353. Currently, the patient's receiving saline at 100 mL an hour. The patient did not use the BiPAP device last night. He is on nasal O2, at 2 L. He is feeling much better, and is currently not manifesting any signs or symptoms of alcohol withdrawal syndrome. Current laboratory data includes a white count 7.9, hemoglobin 8.1, hematocrit 26.4, and a platelet count of 386,000. Sodium 137, potassium 3.7, chlorides 104, CO2 26, anion gap 7, BUN 14, creatinine 0.95. The patient's glucose 103. The magnesium level was 1.4. Blood and sputum sampling is thus far negative. Chest x-ray reveals bilateral basilar infiltrates, left greater than right. The chest x-ray is stable. Progress note dated 04/13/2023. 57-year-old seen in room 353. Currently, the patient is on room air. He's not receiving any IV fluids. From the pulmonary/critical care standpoint, the patient is doing much better, and could be considered for possible discharge. We will leave that up to the primary service. He is not manifesting any signs or symptoms of alcohol withdrawal syndrome. No new laboratory data today. Laboratory data from April 12 are reviewed. Clinically, he feels much improved. The patient is seen today 04/14/2023 in follow-up on the regular medical floor. He is currently sitting up at the site. Awake and alert in no acute distress. He is maintaining good O2 saturations up to 100% on room air. He's afebrile. Hemodynamically stable. Sputum culture revealed no growth. Blood cultures revealed no growth. He is continued on Augmentin. Lovenox for DVT prophylaxis. No new labs today. Awaiting placement for subacute rehabilitation. The patient is seen today 04/15/2023 in follow-up on the regular medical floor. He is awake and alert in no acute distress. He denies any worsening shortness of breath, cough or congestion. No fever or chills. No hemoptysis. Sputum culture revealed no growth. Blood cultures revealed no growth. Appendectomy remains on Augmentin. Remains on IV Protonix. The patient is seen today 04/16/2023 in follow-up on the regular medical floor. Resting comfortably in bed. Awake and alert in no acute distress. Maintaining O2 saturations in the 90s on room air. No IV fluids. Labs are pending. Chest x-ray reveals near complete resolution of previous bibasilar airspace opacities. Sputum culture revealed no growth. Blood culture revealed no growth. Blood pressure is better controlled. Lovenox for DVT prophylaxis. Completed Augmentin. Objective - Vital Signs Vital signs: Vital Signs Temp 97.9 F 04/16/23 08:00 Pulse 80 04/16/23 08:00 Resp 16 04/16/23 08:00 BP 142/80 04/16/23 08:00 Pulse Ox 97 04/16/23 08:00 FiO2 40 04/12/23 08:59 Intake & Output 04/15/23 04/16/23 04/16/23 18:59 06:59 18:59 Intake Total 236 580 Output Total 1500 Balance -1264 580 Intake: Oral 236 580 Output: Urine 1500 Other: Voiding Method Indwelling Catheter # Voids 1 1 - Exam GENERAL EXAM: Alert, 57-year-old male, on room air, resting in bed, in no apparent distress. HEAD: Normocephalic. EYES: Normal reaction of pupils, equal size. NOSE: Clear with pink turbinates. THROAT: No erythema or exudates. NECK: No masses, no JVD. CHEST: No chest wall deformity. LUNGS: Equal air entry with no crackles, wheeze, rhonchi or dullness. CVS: S1 and S2 normal with no audible murmur, regular rhythm. ABDOMEN: No hepatosplenomegaly, normal bowel sounds, no guarding or rigidity. SPINE: No scoliosis or deformity SKIN: No rashes CENTRAL NERVOUS SYSTEM: No focal deficits, tone is normal in all 4 extremities. EXTREMITIES: There is no peripheral edema. No clubbing, no cyanosis. Perip heral pulses are intact. - Labs CBC & Chem 7: 04/12/23 06:36 04/12/23 06:36 Assessment and Plan Assessment: Acute alcohol withdrawal syndrome, with acute delirium tremens, requiring intubation/mechanical ventilation, and successful extubation on 04/06/2023. Acute respiratory failure secondary to acute alcohol withdrawal syndrome. Recovered and on room air Acute aspiration pneumonia, completed Augmentin. Follow-up chest x-ray today 04/16/2023 reveals near complete resolution History of alcohol abuse. Leukocytosis, resolved. Plan: The patient was seen and evaluated Chest x-ray and medications reviewed Labs ordered and pending Stable and on room air Lovenox for DVT prophylaxis Transitioned to oral medications Social work working on insurance Awaiting placement in subacute rehabilitation This patient was seen independently by the nurse practitioner I have personally seen and examined the patient, performed the documentation and the assessment and plan as written. Number of minutes spent on the visit: 22.
--- NOTE | 2023-04-16 11:42 | P.PN ---
Subjective Progress Note Date: 04/16/23 Patient is a 57-year-old biological female, identified as a male, who was sent in by [facility] for suspected alcohol withdrawal with confusion. Patient reports long-standing history of alcohol abuse drinking a half to 1 pint of hard liquor daily. Patient's last drink was reportedly 36 hours ago. At [facility], he was noted to be increasingly confused, hallucinating, and somewhat shaky. The patient's blood pressure was also noted to be high. At the time of interview, the patient does not sure why he is at the hospital and says that he feels fine. Denied experiencing chest discomfort, shortness of breath, fever, chills, cough, nausea, vomiting, abdominal pain, diarrhea. In the emergency room, laboratory evaluation revealed hemoglobin of 10.8 with platelet count 245, Na 141, potassium 3.8, creatinine 1.24, magnesium 1.2, AST 51, and albumin 3.4. Patient was placed on CIWA protocol and given Ativan as needed for alcohol withdrawal. 04/03 Patient is confused. He thinks it's December. He believes he is in [place]. Attempting to get out of bed but re-directable. Given 10 mg IV ativan over the past 24H. 04/04 Patient was seen and examined. He is extremely restless today. Retaining > 600 cc urine on bladder scan. SBP consistently in the 200s. He was given 2 doses of Hydralazine 10 mg IV for hypertension. He also has low grade fevers. BMP Na 135, bicarb 18. Mag 1.3. B12 1699. Folate 13.9. TSH 2.2. Ammonia 10. 04/05 Mentation continued to worsen overnight. He was found to be minimally responsive and newly hypoxic saturating 80's on 4-6L NC. Incremental doses of flumazelin was given with minimal improvement. ABG showed pO2 of 40. D-Dimer elevated at 2.0. CTA chest was ordered which was negative for PE but findings of aspiration pneumonia. CT brain negative for acute pathology. He was eventually intubated to protect his airway and moved to ICU. This morning he is febrile with Tmax 103.1, hypotensive with BP 85/49, RR 28, saturating 99% on mechanical ventilation. Propofol at 20 mcg/kg/min for sedation. Unasyn started for aspiration PNA. 04/06 Patient continues to be intubated. He was on levophed overnight for hypotension for a short period of time which has been weaned off this morning. CBC WBC 12.5, Hg 8. ABG pH 7.47, pCO2 32. BMP Na 135, Cl 108, bicarb 21, BUN 23, Cr 1.36, Ca 7.1. Procal elevated at 1.55. CXR shows right lower lobe infiltrate. Antibiotics include Unasyn for coverage of aspiration PNA. Sedated with propofol. Extubated on 04/06 and started on a Precedex drip which was eventually weaned off. Unasyn transitioned to Augmentin. Weaned off a clevidipine drip for hypertension, started on Amlodipine, Hydralazine, Lisinopril, Metoprolol. He did require BiPAP for hypoxia and obtundation on 04/10 after receiving Ativan which was weaned off the following morning. PT and OT recommended SNF. Plans for SNF once insurance authorization obtained. 04/14 Patient was seen and examined. No acute events overnight. Pleasantly confused. Case management informed me yesterday his Medicaid was terminated during this admission. He is unsafe for discharge home. Medically stable. 04/15 Patient was seen and examined. No acute events overnight. Pleasantly confused. Refusing telemetry. 04/16 Patient was seen and examined. CXR shows improvement in opacities. Pending SNF. Medically stable. Pertinent studies include Brain CT, CXR, Chest CTA, Venous doppler Pertinent procedures include intubation/extubation. Gen: Awake, alert HEENT: normocephalic, atraumatic, good hearing acuity, moist mucous membranes Resp: good air exchange, breathing comfortably with no accessory muscle use CVS: good distal perfusion x 4 GI: soft, NTTP, ND : no SPT, no CVAT, rojo catheter is present MSK: no pitting edema, no clubbing Neuro: non-focal, moving all extremities Acute hypoxic respiratory failure, resolved Sepsis due to aspiration pneumonia, resolved HTN urgency, resolved Acute metabolic encephalopathy, resolving Delirium tremens, resolved Acute kidney injury secondary to hypotension, resolved Urinary retention Normocytic anemia Hypomagnesemia Based on my assessment of this patient, this patient meets a moderate complexity level of care. Patient has a history of alcohol abuse with severe exacerbation or progression of disease which poses a threat to life or bodily function. Currently has delirium tremens with hypertensive urgency. Intubated on 04/05. Treated for aspiration PNA. Acute hypoxic respiratory failure: Resolved Sepsis due to aspiration pneumonia: Continue Augmentin by mouth. HTN urgency, now controlled: Amlodipine 5 mg PO BID. Hydralazine 25 mg PO BID. Lisinopril 20 mg PO QD. Metoprolol 25 mg PO BID. Acute metabolic encephalopathy Delirium tremens: Resolved. Discontinue Ativan. Acute kidney injury secondary to hypotension: Resolved Urinary retention: Voiding trial. Normocytic anemia: Transfuse if Hg < 7. No signs of active bleeding. Hypomagnesemia: Replace via protocol. I have reviewed the following information technology consultant notes: Pulmonology note. I have reviewed the results of the following tests: I have ordered the following tests: I have discussed the care of this patient with the following independent historian: Discussed with RN. Discussed with case management. I have independently interpreted the following test below: CXR I have discussed the management of this patient with the following physician: Objective - Vital Signs Vital signs: Vital Signs Temp 97.9 F 04/16/23 08:00 Pulse 80 04/16/23 08:00 Resp 16 04/16/23 08:00 BP 142/80 04/16/23 08:00 Pulse Ox 97 04/16/23 08:00 FiO2 40 04/12/23 08:59 Intake & Output 04/15/23 04/16/23 04/16/23 18:59 06:59 18:59 Intake Total 236 580 Output Total 1500 Balance -1264 580 Intake: Oral 236 580 Output: Urine 1500 Other: Voiding Method Indwelling Catheter # Voids 1 1 - Labs CBC & Chem 7: 04/12/23 06:36 04/12/23 06:36
[2023-04-16 16:02] LABS: BUN/Creat Ratio 16.77 Ratio (12.00-20.00); Blood Urea Nitrogen 21.8 mg/dL (9.0-27.0); Calcium 10.6 mg/dL (8.7-10.3); Carbon Dioxide 25.4 mmol/L (21.6-31.8); Chloride 102 mmol/L (96-109); Glucose 109 mg/dL (70-110); Potassium 4.9 mmol/L (3.5-5.5); Sodium 140 mmol/L (135-145)
[2023-04-16 16:39] LABS: HGB 10.8 g/dL (12.0-15.0); MCH 25.2 pg (27.0-32.0); MCHC 29.2 g/dL (32.0-37.0); MCV 86.4 FL (80.0-97.0); NRBC Per 100 WBC 0 X 10*3/uL (0.00-0.01); Platelet Count 754 X 10*3/uL (140-440); RBC 4.28 X 10*6/uL (4.10-5.20); RDW 19.7 % (11.5-14.5); WBC 10.37 X 10*3/uL (4.50-10.00)
[2023-04-16] MEDS ORDERED: ALPRAZolam 0.25 MG TAB PO STA (21:55)
[2023-04-17] MEDS: PANTOPRAZOLE 40 MG TABLET PO SCH (06:36)
[2023-04-17] MEDS: hydrALAZINE HCL 25 MG TAB PO SCH ×2 (08:12→20:48)
[2023-04-17] MEDS: amLODIPine 5 MG TAB PO SCH ×2 (08:12→20:48)
[2023-04-17] MEDS: THIAMINE 100 MG TAB PO SCH (08:12)
[2023-04-17] MEDS: lisinopriL 20 MG TAB PO SCH (08:12)
[2023-04-17] MEDS: METOPROLOL TARTRATE 25 MG TAB PO SCH ×2 (08:13→20:48)
[2023-04-17] MEDS: ENOXAPARIN 40 MG/0.4 ML SYRINGE SQ SCH (08:13)
--- NOTE | 2023-04-17 09:59 | P.PN ---
Subjective Progress Note Date: 04/17/23 Reevaluated today on 04/09/23, patient remains in the ICU, doing well, no specific complaints over the last 24 hours. Patient is on 6 L nasal cannula, on clevidipine at 3 mg/h which I will discontinue since the patient is now on oral Norvasc and is also on clonidine. His also on beta blockers. These could be adjusted accordingly. Patient remains on Unasyn for presumptive aspiration pneumonia. Chest x-ray is showing improvement in his by basilar infiltrates. WBC count is 12.6 hemoglobin 8.7 and electrolytes are normal renal profile is normal Reevaluated today on 04/10/23, patient is now on the medical floor, doing well, relatively asymptomatic, no evidence of any symptoms to suggest alcohol wi thdrawal. Remains on the CIWA protocol. CBC is relatively normal basic metabolic profile is normal, magnesium is 1.4 being addressed accordingly. Last chest x-ray from yesterday showed minimal infiltrates at the bases and subsegmental atelectasis improved compared to previous x-rays Patient was reevaluated today on 04/11/23, patient seems to be doing much better today compared to the last few days, yesterday I was notified about this patient and I recommended placing him on BiPAP overnight because he was having shallow breathing and he was difficult to arouse after he received sedation for his alcohol withdrawal. Today the patient is on nasal cannula, does not seem to be in any distress, patient seems to be called, blood pressure is under control with amlodipine, lisinopril, and hydralazine as well as metoprolol. Chest x-ray is showing slight improvement in his bilateral arms./Aspiration pneumonia patient has been on antibiotics all along, and he has no active pulmonary symptoms at present. Could consider transitioning the patient to Augmentin instead of Unasyn when times comes to discharge the patient to a rehab facility my understanding and the patient may be going to rehab in the next 24 hours. Progress note dated 04/12/2023. 57-year-old male seen today in room 353. Currently, the patient's receiving saline at 100 mL an hour. The patient did not use the BiPAP device last night. He is on nasal O2, at 2 L. He is feeling much better, and is currently not manifesting any signs or symptoms of alcohol withdrawal syndrome. Current laboratory data includes a white count 7.9, hemoglobin 8.1, hematocrit 26.4, and a platelet count of 386,000. Sodium 137, potassium 3.7, chlorides 104, CO2 26, anion gap 7, BUN 14, creatinine 0.95. The patient's glucose 103. The magnesium level was 1.4. Blood and sputum sampling is thus far negative. Chest x-ray reveals bilateral basilar infiltrates, left greater than right. The chest x-ray is stable. Progress note dated 04/13/2023. 57-year-old seen in room 353. Currently, the patient is on room air. He's not receiving any IV fluids. From the pulmonary/critical care standpoint, the patient is doing much better, and could be considered for possible discharge. We will leave that up to the primary service. He is not manifesting any signs or symptoms of alcohol withdrawal syndrome. No new laboratory data today. Laboratory data from April 12 are reviewed. Clinically, he feels much improved. The patient is seen today 04/14/2023 in follow-up on the regular medical floor. He is currently sitting up at the site. Awake and alert in no acute distress. He is maintaining good O2 saturations up to 100% on room air. He's afebrile. Hemodynamically stable. Sputum culture revealed no growth. Blood cultures revealed no growth. He is continued on Augmentin. Lovenox for DVT prophylaxis. No new labs today. Awaiting placement for subacute rehabilitation. The patient is seen today 04/15/2023 in follow-up on the regular medical floor. He is awake and alert in no acute distress. He denies any worsening shortness of breath, cough or congestion. No fever or chills. No hemoptysis. Sputum culture revealed no growth. Blood cultures revealed no growth. Appendectomy remains on Augmentin. Remains on IV Protonix. The patient is seen today 04/16/2023 in follow-up on the regular medical floor. Resting comfortably in bed. Awake and alert in no acute distress. Maintaining O2 saturations in the 90s on room air. No IV fluids. Labs are pending. Chest x-ray reveals near complete resolution of previous bibasilar airspace opacities. Sputum culture revealed no growth. Blood culture revealed no growth. Blood pressure is better controlled. Lovenox for DVT prophylaxis. Completed Augmentin. The patient is seen today 04/17/2023 in follow-up on the regular medical floor. He is awake and alert in no acute distress. Continues to maintain good O2 saturations in the 90s on room air. Denies any shortness of breath, cough or congestion. White count 10.3. Hemoglobin 10.8. Platelets 754. Sodium 140. Potassium 4.9. Bicarb 25. BUN 22. Creatinine 1.3. He is continued on Lovenox for DVT prophylaxis. Blood pressure under good control and remains on Lopressor, Zestril, hydralazine and Norvasc. He remains in the CICT protocol currently at 5. He has remained calm and cooperative. Objective - Vital Signs Vital signs: Vital Signs Temp 97.7 F 04/17/23 07:25 Pulse 79 04/17/23 07:25 Resp 16 04/17/23 07:25 BP 114/68 04/17/23 07:25 Pulse Ox 96 04/17/23 07:25 FiO2 40 04/12/23 08:59 Intake & Output 04/16/23 04/17/23 04/17/23 18:59 06:59 18:59 Intake Total 1080 100 Balance 1080 100 Weight 78.1 kg Intake: Oral 1080 100 Other: Voiding Method Toilet # Voids 3 - Exam GENERAL EXAM: Alert, active, cooperative 57-year-old male, on room air, sitting up in bed, in no apparent distress. HEAD: Normocephalic. EYES: Normal reaction of pupils, equal size. NOSE: Clear with pink turbinates. THROAT: No erythema or exudates. NECK: No masses, no JVD. CHEST: No chest wall deformity. LUNGS: Equal air entry with no crackles, wheeze, rhonchi or dullness. CVS: S1 and S2 normal with no audible murmur, regular rhythm. ABDOMEN: No hepatosplenomegaly, normal bowel sounds, no guarding or rigidity. SPINE: No scoliosis or deformity SKIN: No rashes CENTRAL NERVOUS SYSTEM: No focal deficits, tone is normal in all 4 extremities. EXTREMITIES: There is no peripheral edema. No clubbing, no cyanosis. Peripheral pulses are intact. - Labs CBC & Chem 7: 04/16/23 08:53 04/16/23 08:53 Labs: Abnormal Lab Results - Last 24 Hours (Table) 04/16/23 04/16/23 Range/Units 08:53 08:53 WBC 10.37 H (4.50-10.00) X 10*3/uL Hgb 10.8 L (12.0-15.0) g/dL Hct 37.0 L (37.2-46.3) % MCH 25.2 L (27.0-32.0) pg MCHC 29.2 L (32.0-37.0) g/dL RDW 19.7 H (11.5-14.5) % Plt Count 754 H (140-440) X 10*3/uL Anion Gap 12.60 H (4.00-12.00) mmol/L Est GFR (CKD-EPI) 49 L (>=60) Calcium 10.6 H (8.7-10.3) mg/dL Assessment and Plan Assessment: Acute alcohol withdrawal syndrome, with acute delirium tremens, requiring intubation/mechanical ventilation, and successful extubation on 04/06/2023. Acute respiratory failure secondary to acute alcohol withdrawal syndrome. Recove red and on room air Acute aspiration pneumonia, completed Augmentin. Follow-up chest x-ray 023 reveals near complete resolution History of alcohol abuse Leukocytosis, resolved Plan: The patient was seen and evaluated Labs and medications reviewed Hemoglobin stable at 10.8 Lovenox for DVT prophylaxis Transitioned to oral medications Remains calm and cooperative Social work working on insurance Awaiting placement in subacute rehabilitation This patient was seen independently by the nurse practitioner I have personally seen and examined the patient, performed the documentation and the assessment and plan as written. Number of minutes spent on the visit: 24.
--- NOTE | 2023-04-17 12:22 | P.PN ---
Subjective Progress Note Date: 04/17/23 Patient is a 57-year-old biological female, identified as a male, who was sent in by [place] for suspected alcohol withdrawal with confusion. Patient reports long-standing history of alcohol abuse drinking a half to 1 pint of hard liquor daily. Patient's last drink was reportedly 36 hours ago. At [place], he was noted to be increasingly confused, hallucinating, and somewhat shaky. The patient's blood pressure was also noted to be high. At the time of interview, the patient does not sure why he is at the hospital and says that he feels fine. Denied experiencing chest discomfort, shortness of breath, fever, chills, cough, nausea, vomiting, abdominal pain, diarrhea. In the emergency room, laboratory evaluation revealed hemoglobin of 10.8 with platelet count 245, Na 141, potassium 3.8, creatinine 1.24, magnesium 1.2, AST 51, and albumin 3.4. Patient was placed on CIWA protocol and given Ativan as needed for alcohol withdrawal. 04/03 Patient is confused. He thinks it's December. He believes he is in [place]. Attempting to get out of bed but re-directable. Given 10 mg IV ativan over the past 24H. 04/04 Patient was seen and examined. He is extremely restless today. Retaining > 600 cc urine on bladder scan. SBP consistently in the 200s. He was given 2 doses of Hydralazine 10 mg IV for hypertension. He also has low grade fevers. BMP Na 135, bicarb 18. Mag 1.3. B12 1699. Folate 13.9. TSH 2.2. Ammonia 10. 04/05 Mentation continued to worsen overnight. He was found to be minimally responsive and newly hypoxic saturating 80's on 4-6L NC. Incremental doses of flumazelin was given with minimal improvement. ABG showed pO2 of 40. D-Dimer elevated at 2.0. CTA chest was ordered which was negative for PE but findings of aspiration pneumonia. CT brain negative for acute pathology. He was eventually intubated to protect his airway and moved to ICU. This morning he is febrile with Tmax 103.1, hypotensive with BP 85/49, RR 28, saturating 99% on mechanical ventilation. Propofol at 20 mcg/kg/min for sedation. Unasyn started for aspiration PNA. 04/06 Patient continues to be intubated. He was on levophed overnight for hypotension for a short period of time which has been weaned off this morning. CBC WBC 12.5, Hg 8. ABG pH 7.47, pCO2 32. BMP Na 135, Cl 108, bicarb 21, BUN 23, Cr 1.36, Ca 7.1. Procal elevated at 1.55. CXR shows right lower lobe infiltrate. Antibiotics include Unasyn for coverage of aspiration PNA. Sedated with propofol. Extubated on 04/06 and started on a Precedex drip which was eventually weaned off. Unasyn transitioned to Augmentin. Weaned off a clevidipine drip for hypertension, started on Amlodipine, Hydralazine, Lisinopril, Metoprolol. He did require BiPAP for hypoxia and obtundation on 04/10 after receiving Ativan which was weaned off the following morning. PT and OT recommended SNF. Plans for SNF once insurance authorization obtained. 04/14 Patient was seen and examined. No acute events overnight. Pleasantly confused. Case management informed me yesterday his Medicaid was terminated during this admission. He is unsafe for discharge home. Medically stable. 04/15 Patient was seen and examined. No acute events overnight. Pleasantly confused. Refusing telemetry. 04/16 Patient was seen and examined. CXR shows improvement in opacities. Pending SNF. Medically stable. 04/17 Patient was seen and examined. Pending SNF. Medically stable. Pertinent studies include Brain CT, CXR, Chest CTA, Venous doppler Pertinent procedures include intubation/extubation. Gen: Awake, alert HEENT: normocephalic, atraumatic, good hearing acuity, moist mucous membranes Resp: good air exchange, breathing comfortably with no accessory muscle use CVS: good distal perfusion x 4 GI: soft, NTTP, ND MSK: no pitting edema, no clubbing Neuro: non-focal, moving all extremities Acute hypoxic respiratory failure, resolved Sepsis due to aspiration pneumonia, resolved HTN urgency, resolved Acute metabolic encephalopathy, resolving Delirium tremens, resolved Acute kidney injury secondary to hypotension, resolved Urinary retention Normocytic anemia Hypomagnesemia Based on my assessment of this patient, this patient meets a moderate complexity level of care. Patient has a history of alcohol abuse with severe exacerbation or progression of disease which poses a threat to life or bodily function. Currently has delirium tremens with hypertensive urgency. Intubated on 04/05. Treated for aspiration PNA. Acute hypoxic respiratory failure: Resolved Sepsis due to aspiration pneumonia: Continue Augmentin by mouth. HTN urgency, now controlled: Amlodipine 5 mg PO BID. Hydralazine 25 mg PO BID. Lisinopril 20 mg PO QD. Metoprolol 25 mg PO BID. Acute metabolic encephalopathy Delirium tremens: Resolved. Discontinue Ativan. Acute kidney injury secondary to hypotension: Resolved Urinary retention: Voiding trial. Normocytic anemia: Transfuse if Hg < 7. No signs of active bleeding. Hypomagnesemia: Replace via protocol. I have reviewed the following supply chain consultant notes: Pulmonology note. I have reviewed the results of the following tests: I have ordered the following tests: I have discussed the care of this patient with the following independent historian: Discussed with RN. I have independently interpreted the following test below: I have discussed the management of this patient with the following physician: Objective - Vital Signs Vital signs: Vital Signs Temp 97.7 F 04/17/23 07:25 Pulse 79 04/17/23 07:25 Resp 16 04/17/23 07:25 BP 114/68 04/17/23 07:25 Pulse Ox 96 04/17/23 07:25 FiO2 40 04/12/23 08:59 Intake & Output 04/16/23 04/17/23 04/17/23 18:59 06:59 18:59 Intake Total 1080 Balance 1080 Weight 78.1 kg Intake: Oral 1080 Other: # Voids 3 - Labs CBC & Chem 7: 04/16/23 08:53 04/16/23 08:53 Labs: Abnormal Lab Results - Last 24 Hours (Table) 04/16/23 04/16/23 Range/Units 08:53 08:53 WBC 10.37 H (4.50-10.00) X 10*3/uL Hgb 10.8 L (12.0-15.0) g/dL Hct 37.0 L (37.2-46.3) % MCH 25.2 L (27.0-32.0) pg MCHC 29.2 L (32.0-37.0) g/dL RDW 19.7 H (11.5-14.5) % Plt Count 754 H (140-440) X 10*3/uL Anion Gap 12.60 H (4.00-12.00) mmol/L Est GFR (CKD-EPI) 49 L (>=60) Calcium 10.6 H (8.7-10.3) mg/dL
[2023-04-18] MEDS: PANTOPRAZOLE 40 MG TABLET PO SCH (05:53)
[2023-04-18] MEDS: ENOXAPARIN 40 MG/0.4 ML SYRINGE SQ SCH (09:05)
[2023-04-18] MEDS: lisinopriL 20 MG TAB PO SCH (09:05)
[2023-04-18] MEDS: amLODIPine 5 MG TAB PO SCH ×2 (09:05→19:50)
[2023-04-18] MEDS: THIAMINE 100 MG TAB PO SCH (09:05)
[2023-04-18] MEDS: METOPROLOL TARTRATE 25 MG TAB PO SCH ×2 (09:05→19:50)
[2023-04-18] MEDS: hydrALAZINE HCL 25 MG TAB PO SCH ×2 (09:05→19:50)
--- NOTE | 2023-04-18 09:37 | P.PN ---
Subjective Progress Note Date: 04/18/23 Patient is a 57-year-old biological female, identified as a male, who was sent in by [place] for suspected alcohol withdrawal with confusion. Patient reports long-standing history of alcohol abuse drinking a half to 1 pint of hard liquor daily. Patient's last drink was reportedly 36 hours ago. At [place], he was noted to be increasingly confused, hallucinating, and somewhat shaky. The patient's blood pressure was also noted to be high. At the time of interview, the patient does not sure why he is at the hospital and says that he feels fine. Denied experiencing chest discomfort, shortness of breath, fever, chills, cough, nausea, vomiting, abdominal pain, diarrhea. In the emergency room, laboratory evaluation revealed hemoglobin of 10.8 with platelet count 245, Na 141, potassium 3.8, creatinine 1.24, magnesium 1.2, AST 51, and albumin 3.4. Patient was placed on CIWA protocol and given Ativan as needed for alcohol withdrawal. 04/03 Patient is confused. He thinks it's December. He believes he is in [place]. Attempting to get out of bed but re-directable. Given 10 mg IV ativan over the past 24H. 04/04 Patient was seen and examined. He is extremely restless today. Retaining > 600 cc urine on bladder scan. SBP consistently in the 200s. He was given 2 doses of Hydralazine 10 mg IV for hypertension. He also has low grade fevers. BMP Na 135, bicarb 18. Mag 1.3. B12 1699. Folate 13.9. TSH 2.2. Ammonia 10. 04/05 Mentation continued to worsen overnight. He was found to be minimally responsive and newly hypoxic saturating 80's on 4-6L NC. Incremental doses of flumazelin was given with minimal improvement. ABG showed pO2 of 40. D-Dimer elevated at 2.0. CTA chest was ordered which was negative for PE but findings of aspiration pneumonia. CT brain negative for acute pathology. He was eventually intubated to protect his airway and moved to ICU. This morning he is febrile with Tmax 103.1, hypotensive with BP 85/49, RR 28, saturating 99% on mechanical ventilation. Propofol at 20 mcg/kg/min for sedation. Unasyn started for aspiration PNA. 04/06 Patient continues to be intubated. He was on levophed overnight for hypotension for a short period of time which has been weaned off this morning. CBC WBC 12.5, Hg 8. ABG pH 7.47, pCO2 32. BMP Na 135, Cl 108, bicarb 21, BUN 23, Cr 1.36, Ca 7.1. Procal elevated at 1.55. CXR shows right lower lobe infiltrate. Antibiotics include Unasyn for coverage of aspiration PNA. Sedated with propofol. Extubated on 04/06 and started on a Precedex drip which was eventually weaned off. Unasyn transitioned to Augmentin. Weaned off a clevidipine drip for hypertension, started on Amlodipine, Hydralazine, Lisinopril, Metoprolol. He did require BiPAP for hypoxia and obtundation on 04/10 after receiving Ativan which was weaned off the following morning. PT and OT recommended SNF. Plans for SNF once insurance authorization obtained. 04/14 Patient was seen and examined. No acute events overnight. Pleasantly confused. Case management informed me yesterday his Medicaid was terminated during this admission. He is unsafe for discharge home. Medically stable. 04/15 Patient was seen and examined. No acute events overnight. Pleasantly confused. Refusing telemetry. 04/16 Patient was seen and examined. CXR shows improvement in opacities. Pending SNF. Medically stable. 04/17 Patient was seen and examined. Pending SNF. Medically stable. 04/18 Patient was seen and examined. Pending SNF. Medically stable. Pertinent studies include Brain CT, CXR, Chest CTA, Venous doppler Pertinent procedures include intubation/extubation. Gen: Awake, alert HEENT: normocephalic, atraumatic, good hearing acuity, moist mucous membranes Resp: good air exchange, breathing comfortably with no accessory muscle use CVS: good distal perfusion x 4 GI: soft, NTTP, ND MSK: no pitting edema, no clubbing Neuro: non-focal, moving all extremities Acute hypoxic respiratory failure, resolved Sepsis due to aspiration pneumonia, resolved HTN urgency, resolved Acute metabolic encephalopathy, resolving Delirium tremens, resolved Acute kidney injury secondary to hypotension, resolved Urinary retention Normocytic anemia Hypomagnesemia Based on my assessment of this patient, this patient meets a moderate complexity level of care. Patient has a history of alcohol abuse with severe exacerbation or progression of disease which poses a threat to life or bodily function. Currently has delirium tremens with hypertensive urgency. Intubated on 04/05. Treated for aspiration PNA. Acute hypoxic respiratory failure: Resolved Sepsis due to aspiration pneumonia: Continue Augmentin by mouth. HTN urgency, now controlled: Amlodipine 5 mg PO BID. Hydralazine 25 mg PO BID. Lisinopril 20 mg PO QD. Metoprolol 25 mg PO BID. Acute metabolic encephalopathy Delirium tremens: Resolved. Discontinue Ativan. Acute kidney injury secondary to hypotension: Resolved Urinary retention: Voiding trial. Normocytic anemia: Transfuse if Hg < 7. No signs of active bleeding. Hypomagnesemia: Replace via protocol. I have reviewed the following revenue cycle consultant notes: Pulmonology note. I have reviewed the results of the following tests: I have ordered the following tests: I have discussed the care of this patient with the following independent historian: Discussed with RN. I have independently interpreted the following test below: I have discussed the management of this patient with the following physician: Objective - Vital Signs Vital signs: Vital Signs Temp 98.2 F 04/18/23 07:20 Pulse 63 04/18/23 07:20 Resp 16 04/18/23 07:20 BP 120/76 04/18/23 07:20 Pulse Ox 100 04/18/23 07:20 FiO2 40 04/12/23 08:59 Intake & Output 04/17/23 04/18/23 04/18/23 18:59 06:59 18:59 Intake Total 336 Balance 336 Intake: Oral 336 Other: Voiding Method Toilet Toilet # Voids 1 1 - Labs CBC & Chem 7: 04/16/23 08:53 04/16/23 08:53
--- NOTE | 2023-04-18 09:53 | P.PN ---
Subjective Progress Note Date: 04/18/23 Reevaluated today on 04/09/23, patient remains in the ICU, doing well, no specific complaints over the last 24 hours. Patient is on 6 L nasal cannula, on clevidipine at 3 mg/h which I will discontinue since the patient is now on oral Norvasc and is also on clonidine. His also on beta blockers. These could be adjusted accordingly. Patient remains on Unasyn for presumptive aspiration pneumonia. Chest x-ray is showing improvement in his by basilar infiltrates. WBC count is 12.6 hemoglobin 8.7 and electrolytes are normal renal profile is normal Reevaluated today on 04/10/23, patient is now on the medical floor, doing well, relatively asymptomatic, no evidence of any symptoms to suggest alcohol wi thdrawal. Remains on the CIWA protocol. CBC is relatively normal basic metabolic profile is normal, magnesium is 1.4 being addressed accordingly. Last chest x-ray from yesterday showed minimal infiltrates at the bases and subsegmental atelectasis improved compared to previous x-rays Patient was reevaluated today on 04/11/23, patient seems to be doing much better today compared to the last few days, yesterday I was notified about this patient and I recommended placing him on BiPAP overnight because he was having shallow breathing and he was difficult to arouse after he received sedation for his alcohol withdrawal. Today the patient is on nasal cannula, does not seem to be in any distress, patient seems to be called, blood pressure is under control with amlodipine, lisinopril, and hydralazine as well as metoprolol. Chest x-ray is showing slight improvement in his bilateral arms./Aspiration pneumonia patient has been on antibiotics all along, and he has no active pulmonary symptoms at present. Could consider transitioning the patient to Augmentin instead of Unasyn when times comes to discharge the patient to a rehab facility my understanding and the patient may be going to rehab in the next 24 hours. Progress note dated 04/12/2023. 57-year-old male seen today in room 353. Currently, the patient's receiving saline at 100 mL an hour. The patient did not use the BiPAP device last night. He is on nasal O2, at 2 L. He is feeling much better, and is currently not manifesting any signs or symptoms of alcohol withdrawal syndrome. Current laboratory data includes a white count 7.9, hemoglobin 8.1, hematocrit 26.4, and a platelet count of 386,000. Sodium 137, potassium 3.7, chlorides 104, CO2 26, anion gap 7, BUN 14, creatinine 0.95. The patient's glucose 103. The magnesium level was 1.4. Blood and sputum sampling is thus far negative. Chest x-ray reveals bilateral basilar infiltrates, left greater than right. The chest x-ray is stable. Progress note dated 04/13/2023. 57-year-old seen in room 353. Currently, the patient is on room air. He's not receiving any IV fluids. From the pulmonary/critical care standpoint, the patient is doing much better, and could be considered for possible discharge. We will leave that up to the primary service. He is not manifesting any signs or symptoms of alcohol withdrawal syndrome. No new laboratory data today. Laboratory data from April 12 are reviewed. Clinically, he feels much improved. The patient is seen today 04/14/2023 in follow-up on the regular medical floor. He is currently sitting up at the site. Awake and alert in no acute distress. He is maintaining good O2 saturations up to 100% on room air. He's afebrile. Hemodynamically stable. Sputum culture revealed no growth. Blood cultures revealed no growth. He is continued on Augmentin. Lovenox for DVT prophylaxis. No new labs today. Awaiting placement for subacute rehabilitation. The patient is seen today 04/15/2023 in follow-up on the regular medical floor. He is awake and alert in no acute distress. He denies any worsening shortness of breath, cough or congestion. No fever or chills. No hemoptysis. Sputum culture revealed no growth. Blood cultures revealed no growth. Appendectomy remains on Augmentin. Remains on IV Protonix. The patient is seen today 04/16/2023 in follow-up on the regular medical floor. Resting comfortably in bed. Awake and alert in no acute distress. Maintaining O2 saturations in the 90s on room air. No IV fluids. Labs are pending. Chest x-ray reveals near complete resolution of previous bibasilar airspace opacities. Sputum culture revealed no growth. Blood culture revealed no growth. Blood pressure is better controlled. Lovenox for DVT prophylaxis. Completed Augmentin. The patient is seen today 04/17/2023 in follow-up on the regular medical floor. He is awake and alert in no acute distress. Continues to maintain good O2 saturations in the 90s on room air. Denies any shortness of breath, cough or congestion. White count 10.3. Hemoglobin 10.8. Platelets 754. Sodium 140. Potassium 4.9. Bicarb 25. BUN 22. Creatinine 1.3. He is continued on Lovenox for DVT prophylaxis. Blood pressure under good control and remains on Lopressor, Zestril, hydralazine and Norvasc. He remains in the CIWA protocol currently at 5. He has remained calm and cooperative. The patient is seen today 04/18/2023 in follow-up on the regular medical floor. He is resting comfortably in bed. Awake and alert in no acute distress. Maintaining good O2 saturations up to 100% on room air. Afebrile. Hemodynamically stable. No new labs today. Lovenox for DVT prophylaxis. Objective - Vital Signs Vital signs: Vital Signs Temp 98.2 F 04/18/23 07:20 Pulse 63 04/18/23 07:20 Resp 16 04/18/23 07:20 BP 120/76 04/18/23 07:20 Pulse Ox 100 04/18/23 07:20 FiO2 40 04/12/23 08:59 Intake & Output 04/17/23 04/18/23 04/18/23 18:59 06:59 18:59 Intake Total 336 Balance 336 Intake: Oral 336 Other: Voiding Method Toilet Toilet # Voids 1 1 - Exam GENERAL EXAM: Alert, 57-year-old male, on room air, resting in bed, in no apparent distress. HEAD: Normocephalic. EYES: Normal reaction of pupils, equal size. NOSE: Clear with pink turbinates. THROAT: No erythema or exudates. NECK: No masses, no JVD. CHEST: No chest wall deformity. LUNGS: Equal air entry with no crackles, wheeze, rhonchi or dullness. CVS: S1 and S2 normal with no audible murmur, regular rhythm. ABDOMEN: No hepatosplenomegaly, normal bowel sounds, no guarding or rigidity. SPINE: No scoliosis or deformity SKIN: No rashes CENTRAL NERVOUS SYSTEM: No focal deficits, tone is normal in all 4 extremities. EXTREMITIES: There is no peripheral edema. No clubbing, no cyanosis. Peripheral pulses are intact. - Labs CBC & Chem 7: 04/16/23 08:53 04/16/23 08:53 Assessment and Plan Assessment: Acute alcohol withdrawal syndrome, with acute delirium tremens, requiring intub ation/mechanical ventilation, and successful extubation on 04/06/2023. Acute respiratory failure secondary to acute alcohol withdrawal syndrome. Recovered and on room air Acute aspiration pneumonia, completed Augmentin. Follow-up chest x-ray 04/16/2023 reveals near complete resolution History of alcohol abuse Leukocytosis, resolved Plan: The patient was seen and evaluated Medications reviewed Lovenox for DVT prophylaxis Transitioned to oral medications Remains calm and cooperative Awaiting placement in subacute rehabilitation This patient was seen independently by the nurse practitioner I have personally seen and examined the patient, performed the documentation and the assessment and plan as written. Number of minutes spent on the visit: 20.
[2023-04-19] MEDS: PANTOPRAZOLE 40 MG TABLET PO SCH (05:57)
[2023-04-19] MEDS: ENOXAPARIN 40 MG/0.4 ML SYRINGE SQ SCH (08:13)
[2023-04-19] MEDS: METOPROLOL TARTRATE 25 MG TAB PO SCH (08:14)
[2023-04-19] MEDS: lisinopriL 20 MG TAB PO SCH (08:14)
[2023-04-19] MEDS: hydrALAZINE HCL 25 MG TAB PO SCH (08:14)
[2023-04-19] MEDS: amLODIPine 5 MG TAB PO SCH (08:14)
[2023-04-19] MEDS: THIAMINE 100 MG TAB PO SCH (08:14)
--- NOTE | 2023-04-19 10:58 | P.PN ---
Subjective Progress Note Date: 04/19/23 Patient is a 57-year-old biological female, identified as a male, who was sent in by [facility] for suspected alcohol withdrawal with confusion. Patient reports long-standing history of alcohol abuse drinking a half to 1 pint of hard liquor daily. Patient's last drink was reportedly 36 hours ago. At [facility], he was noted to be increasingly confused, hallucinating, and somewhat shaky. The patient's blood pressure was also noted to be high. At the time of interview, the patient does not sure why he is at the hospital and says that he feels fine. Denied experiencing chest discomfort, shortness of breath, fever, chills, cough, nausea, vomiting, abdominal pain, diarrhea. In the emergency room, laboratory evaluation revealed hemoglobin of 10.8 with platelet count 245, Na 141, potassium 3.8, creatinine 1.24, magnesium 1.2, AST 51, and albumin 3.4. Patient was placed on CIWA protocol and given Ativan as needed for alcohol withdrawal. 04/03 Patient is confused. He thinks it's December. He believes he is in [place]. Attempting to get out of bed but re-directable. Given 10 mg IV ativan over the past 24H. 04/04 Patient was seen and examined. He is extremely restless today. Retaining > 600 cc urine on bladder scan. SBP consistently in the 200s. He was given 2 doses of Hydralazine 10 mg IV for hypertension. He also has low grade fevers. BMP Na 135, bicarb 18. Mag 1.3. B12 1699. Folate 13.9. TSH 2.2. Ammonia 10. 04/05 Mentation continued to worsen overnight. He was found to be minimally responsive and newly hypoxic saturating 80's on 4-6L NC. Incremental doses of flumazelin was given with minimal improvement. ABG showed pO2 of 40. D-Dimer elevated at 2.0. CTA chest was ordered which was negative for PE but findings of aspiration pneumonia. CT brain negative for acute pathology. He was eventually intubated to protect his airway and moved to ICU. This morning he is febrile with Tmax 103.1, hypotensive with BP 85/49, RR 28, saturating 99% on mechanical ventilation. Propofol at 20 mcg/kg/min for sedation. Unasyn started for aspiration PNA. 04/06 Patient continues to be intubated. He was on levophed overnight for hypotension for a short period of time which has been weaned off this morning. CBC WBC 12.5, Hg 8. ABG pH 7.47, pCO2 32. BMP Na 135, Cl 108, bicarb 21, BUN 23, Cr 1.36, Ca 7.1. Procal elevated at 1.55. CXR shows right lower lobe infiltrate. Antibiotics include Unasyn for coverage of aspiration PNA. Sedated with propofol. Extubated on 04/06 and started on a Precedex drip which was eventually weaned off. Unasyn transitioned to Augmentin. Weaned off a clevidipine drip for hypertension, started on Amlodipine, Hydralazine, Lisinopril, Metoprolol. He did require BiPAP for hypoxia and obtundation on 04/10 after receiving Ativan which was weaned off the following morning. PT and OT recommended SNF. Plans for SNF once insurance authorization obtained. 04/14 Patient was seen and examined. No acute events overnight. Pleasantly confused. Case management informed me yesterday his Medicaid was terminated during this admission. He is unsafe for discharge home. Medically stable. 04/15 Patient was seen and examined. No acute events overnight. Pleasantly confused. Refusing telemetry. 04/16 Patient was seen and examined. CXR shows improvement in opacities. Pending SNF. Medically stable. 04/17 Patient was seen and examined. Pending SNF. Medically stable. 04/18 Patient was seen and examined. Pending SNF. Medically stable. 04/19 Patient was seen and examined. Pending SNF. Medically stable. Pertinent studies include Brain CT, CXR, Chest CTA, Venous doppler Pertinent procedures include intubation/extubation. Gen: Awake, alert HEENT: normocephalic, atraumatic, good hearing acuity, moist mucous membranes Resp: good air exchange, breathing comfortably with no accessory muscle use CVS: good distal perfusion x 4 GI: soft, NTTP, ND MSK: no pitting edema, no clubbing Neuro: non-focal, moving all extremities Acute hypoxic respiratory failure, resolved Sepsis due to aspiration pneumonia, resolved HTN urgency, resolved Acute metabolic encephalopathy, resolving Delirium tremens, resolved Acute kidney injury secondary to hypotension, resolved Urinary retention Normocytic anemia Hypomagnesemia Based on my assessment of this patient, this patient meets a moderate complexity level of care. Patient has a history of alcohol abuse with severe exacerbation or progression of disease which poses a threat to life or bodily function. Currently has delirium tremens with hypertensive urgency. Intubated on 04/05. Treated for aspiration PNA. Acute hypoxic respiratory failure: Resolved Sepsis due to aspiration pneumonia: Continue Augmentin by mouth. HTN urgency, now controlled: Amlodipine 5 mg PO BID. Hydralazine 25 mg PO BID. Lisinopril 20 mg PO QD. Metoprolol 25 mg PO BID. Acute metabolic encephalopathy Delirium tremens: Resolved. Discontinue Ativan. Acute kidney injury secondary to hypotension: Resolved Urinary retention: Voiding trial. Normocytic anemia: Transfuse if Hg < 7. No signs of active bleeding. Hypomagnesemia: Replace via protocol. I have reviewed the following pmo consultant notes: Pulmonology note. I have reviewed the results of the following tests: I have ordered the following tests: I have discussed the care of this patient with the following independent historian: Discussed with RN. I have independently interpreted the following test below: I have discussed the management of this patient with the following physician: Objective - Vital Signs Vital signs: Vital Signs Temp 97.7 F 04/19/23 07:25 Pulse 80 04/19/23 07:25 Resp 16 04/19/23 07:25 BP 100/67 04/19/23 07:25 Pulse Ox 97 04/19/23 07:25 FiO2 40 04/12/23 08:59 Intake & Output 04/18/23 04/19/23 04/19/23 18:59 06:59 18:59 Intake Total 354 118 Balance 354 118 Intake: Oral 354 118 Other: Voiding Method Toilet Toilet # Voids 1 1 - Labs CBC & Chem 7: 04/16/23 08:53 04/16/23 08:53
--- NOTE | 2023-04-19 14:27 | P.PN ---
Subjective Progress Note Date: 04/19/23 Reevaluated today on 04/09/23, patient remains in the ICU, doing well, no specific complaints over the last 24 hours. Patient is on 6 L nasal cannula, on clevidipine at 3 mg/h which I will discontinue since the patient is now on oral Norvasc and is also on clonidine. His also on beta blockers. These could be adjusted accordingly. Patient remains on Unasyn for presumptive aspiration pneumonia. Chest x-ray is showing improvement in his by basilar infiltrates. WBC count is 12.6 hemoglobin 8.7 and electrolytes are normal renal profile is normal Reevaluated today on 04/10/23, patient is now on the medical floor, doing well, relatively asymptomatic, no evidence of any symptoms to suggest alcohol w ithdrawal. Remains on the CIWA protocol. CBC is relatively normal basic metabolic profile is normal, magnesium is 1.4 being addressed accordingly. Last chest x-ray from yesterday showed minimal infiltrates at the bases and subsegmental atelectasis improved compared to previous x-rays Patient was reevaluated today on 04/11/23, patient seems to be doing much better today compared to the last few days, yesterday I was notified about this patient and I recommended placing him on BiPAP overnight because he was having shallow breathing and he was difficult to arouse after he received sedation for his alcohol withdrawal. Today the patient is on nasal cannula, does not seem to be in any distress, patient seems to be called, blood pressure is under control with amlodipine, lisinopril, and hydralazine as well as metoprolol. Chest x-ray is showing slight improvement in his bilateral arms./Aspiration pneumonia patient has been on antibiotics all along, and he has no active pulmonary symptoms at present. Could consider transitioning the patient to Augmentin instead of Unasyn when times comes to discharge the patient to a rehab facility my understanding and the patient may be going to rehab in the next 24 hours. Progress note dated 04/12/2023. 57-year-old male seen today in room 353. Currently, the patient's receiving saline at 100 mL an hour. The patient did not use the BiPAP device last night. He is on nasal O2, at 2 L. He is feeling much better, and is currently not manifesting any signs or symptoms of alcohol withdrawal syndrome. Current laboratory data includes a white count 7.9, hemoglobin 8.1, hematocrit 26.4, and a platelet count of 386,000. Sodium 137, potassium 3.7, chlorides 104, CO2 26, anion gap 7, BUN 14, creatinine 0.95. The patient's glucose 103. The magnesium level was 1.4. Blood and sputum sampling is thus far negative. Chest x-ray reveals bilateral basilar infiltrates, left greater than right. The chest x-ray is stable. Progress note dated 04/13/2023. 57-year-old seen in room 353. Currently, the patient is on room air. He's not receiving any IV fluids. From the pulmonary/critical care standpoint, the patient is doing much better, and could be considered for possible discharge. We will leave that up to the primary service. He is not manifesting any signs or symptoms of alcohol withdrawal syndrome. No new laboratory data today. Laboratory data from April 12 are reviewed. Clinically, he feels much improved. The patient is seen today 04/14/2023 in follow-up on the regular medical floor. He is currently sitting up at the site. Awake and alert in no acute distress. He is maintaining good O2 saturations up to 100% on room air. He's afebrile. Hemodynamically stable. Sputum culture revealed no growth. Blood cultures revealed no growth. He is continued on Augmentin. Lovenox for DVT prophylaxis. No new labs today. Awaiting placement for subacute rehabilitation. The patient is seen today 04/15/2023 in follow-up on the regular medical floor. He is awake and alert in no acute distress. He denies any worsening shortness of breath, cough or congestion. No fever or chills. No hemoptysis. Sputum culture revealed no growth. Blood cultures revealed no growth. Appendectomy remains on Augmentin. Remains on IV Protonix. The patient is seen today 04/16/2023 in follow-up on the regular medical floor. Resting comfortably in bed. Awake and alert in no acute distress. Maintaining O2 saturations in the 90s on room air. No IV fluids. Labs are pending. Chest x-ray reveals near complete resolution of previous bibasilar airspace opacities. Sputum culture revealed no growth. Blood culture revealed no growth. Blood pressure is better controlled. Lovenox for DVT prophylaxis. Completed Augmentin. The patient is seen today 04/17/2023 in follow-up on the regular medical floor. He is awake and alert in no acute distress. Continues to maintain good O2 saturations in the 90s on room air. Denies any shortness of breath, cough or congestion. White count 10.3. Hemoglobin 10.8. Platelets 754. Sodium 140. Potassium 4.9. Bicarb 25. BUN 22. Creatinine 1.3. He is continued on Lovenox for DVT prophylaxis. Blood pressure under good control and remains on Lopressor, Zestril, hydralazine and Norvasc. He remains in the CIWA protocol currently at 5. He has remained calm and cooperative. The patient is seen today 04/18/2023 in follow-up on the regular medical floor. He is resting comfortably in bed. Awake and alert in no acute distress. Maintaining good O2 saturations up to 100% on room air. Afebrile. Hemodynamically stable. No new labs today. Lovenox for DVT prophylaxis. 04/19/2023, the patient is alert and awake without any signs of delirium tremens or agitation. No specific complaints. Hemodynamically stable on room air oxygen.hemodynamically stable. No issues with blood pressure. White cell count of 10.3 with a hemoglobin of 10, sodium is at 140, potassium level is at 4.9, BUN is at 21 with a creatinine of 1.3. Objective - Vital Signs Vital signs: Vital Signs Temp 97.7 F 04/19/23 07:25 Pulse 80 04/19/23 07:25 Resp 16 04/19/23 07:25 BP 100/67 04/19/23 07:25 Pulse Ox 97 04/19/23 07:25 FiO2 40 04/12/23 08:59 Intake & Output 04/18/23 04/19/23 04/19/23 18:59 06:59 18:59 Intake Total 354 118 Balance 354 118 Intake: Oral 354 118 Other: Voiding Method Toilet Toilet # Voids 1 1 - Exam GENERAL EXAM: Alert, 57-year-old male, on room air, resting in bed, in no apparent distress. HEAD: Normocephalic. EYES: Normal reaction of pupils, equal size. NOSE: Clear with pink turbinates. THROAT: No erythema or exudates. NECK: No masses, no JVD. CHEST: No chest wall deformity. LUNGS: Equal air entry with no crackles, wheeze, rhonchi or dullness. CVS: S1 and S2 normal with no audible murmur, regular rhythm. ABDOMEN: No hepatosplenomegaly, normal bowel sounds, no guarding or rigidity. SPINE: No scoliosis or deformity SKIN: No rashes CENTRAL NERVOUS SYSTEM: No focal deficits, tone is normal in all 4 extremities. EXTREMITIES: There is no peripheral edema. No clubbing, no cyanosis. Peripheral pulses are intact. - Labs CBC & Chem 7: 04/16/23 08:53 04/16/23 08:53 Assessment and Plan Plan: Acute alcohol withdrawal syndrome, with acute delirium tremens, requiring intubation/mechanical ventilation, and successful extubation on 04/06/2023. Acute respiratory failure secondary to acute alcohol withdrawal syndrome. Recovered and on room air Acute aspiration pneumonia, completed Augmentin. Follow-up chest x-ray 04/16/2023 reveals near complete resolution History of alcohol abuse Leukocytosis, resolved Plan: no active pulmonary or cardiac issue Lovenox for DVT prophylaxis resume all medications Avoid nonsteroidal MEDICATIONS Monitor renal function pulmonary services will sign off
--- NOTE | 2023-04-19 14:41 | P.DS ---
Providers Date of admission: 04/02/23 04:07 Expected date of discharge: 04/19/23 Attending physician: Cesilia Sidhu MD Consults: 04/05/23 02:19 Consult Physician Routine Consulting Provider: Mita Orozco Consult Reason/Comments: ICU MNGMT Do you want consulting provider notified?: Already Contacted 04/19/23 12:37 Consult Physician Routine Consulting Provider: Cirilo Yan Consult Reason/Comments: Confusion Do you want consulting provider notified?: Yes Primary care physician: Physician Nonstaff Hospital Course: Patient is a 57-year-old biological female, identified as a male, who was sent in by [facility] for suspected alcohol withdrawal with confusion. Patient reports long-standing history of alcohol abuse drinking a half to 1 pint of hard liquor daily. Patient's last drink was reportedly 36 hours ago. At [facility], he was noted to be increasingly confused, hallucinating, and somewhat shaky. The patient's blood pressure was also noted to be high. At the time of interview, the patient does not sure why he is at the hospital and says that he feels fine. Denied experiencing chest discomfort, shortness of breath, fever, chills, cough, nausea, vomiting, abdominal pain, diarrhea. In the emergency room, laboratory evaluation revealed hemoglobin of 10.8 with platelet count 245, Na 141, potassium 3.8, creatinine 1.24, magnesium 1.2, AST 51, and albumin 3.4. Patient was placed on CIWA protocol and given Ativan as needed for alcohol withdrawal. 04/03 Patient is confused. He thinks it's December. He believes he is in [place]. Attempting to get out of bed but re-directable. Given 10 mg IV ativan over the past 24H. 04/04 Patient was seen and examined. He is extremely restless today. Retaining > 600 cc urine on bladder scan. SBP consistently in the 200s. He was given 2 doses of Hydralazine 10 mg IV for hypertension. He also has low grade fevers. BMP Na 135, bicarb 18. Mag 1.3. B12 1699. Folate 13.9. TSH 2.2. Ammonia 10. 04/05 Mentation continued to worsen overnight. He was found to be minimally responsive and newly hypoxic saturating 80's on 4-6L NC. Incremental doses of fl umazelin was given with minimal improvement. ABG showed pO2 of 40. D-Dimer elevated at 2.0. CTA chest was ordered which was negative for PE but findings of aspiration pneumonia. CT brain negative for acute pathology. He was eventually intubated to protect his airway and moved to ICU. This morning he is febrile with Tmax 103.1, hypotensive with BP 85/49, RR 28, saturating 99% on mechanical ventilation. Propofol at 20 mcg/kg/min for sedation. Unasyn started for aspiration PNA. 04/06 Patient continues to be intubated. He was on levophed overnight for hypotension for a short period of time which has been weaned off this morning. CBC WBC 12.5, Hg 8. ABG pH 7.47, pCO2 32. BMP Na 135, Cl 108, bicarb 21, BUN 23, Cr 1.36, Ca 7.1. Procal elevated at 1.55. CXR shows right lower lobe infiltrate. Antibiotics include Unasyn for coverage of aspiration PNA. Sedated with propofol. Extubated on 04/06 and started on a Precedex drip which was eventually weaned off. Unasyn transitioned to Augmentin. Weaned off a clevidipine drip for hypertension, started on Amlodipine, Hydralazine, Lisinopril, Metoprolol. He did require BiPAP for hypoxia and obtundation on 04/10 after receiving Ativan which was weaned off the following morning. PT and OT recommended SNF. Plans for SNF once insurance authorization obtained. 04/14 Patient was seen and examined. No acute events overnight. Pleasantly confused. Case management informed me yesterday his Medicaid was terminated during this admission. He is unsafe for discharge home. Medically stable. 04/15 Patient was seen and examined. No acute events overnight. Pleasantly confused. Refusing telemetry. 04/16 Patient was seen and examined. CXR shows improvement in opacities. Pending SNF. Medically stable. 04/17 Patient was seen and examined. Pending SNF. Medically stable. 04/18 Patient was seen and examined. Pending SNF. Medically stable. 04/19 Patient was seen and examined. Pending SNF. Medically stable. Neurology was consulted and recommends no further workup. Patient is alert and oriented x 3. He is refusing SNF and would like to go home. We will discharge e patient home today. Pertinent studies include Brain CT, CXR, Chest CTA, Venous doppler Pertinent procedures include intubation/extubation. Gen: Awake, alert HEENT: normocephalic, atraumatic, good hearing acuity, moist mucous membranes Resp: good air exchange, breathing comfortably with no accessory muscle use CVS: good distal perfusion x 4 GI: soft, NTTP, ND MSK: no pitting edema, no clubbing Neuro: non-focal, moving all extremities Acute hypoxic respiratory failure, resolved Sepsis due to aspiration pneumonia, resolved HTN urgency, resolved Acute metabolic encephalopathy, resolving Delirium tremens, resolved Acute kidney injury secondary to hypotension, resolved Urinary retention Normocytic anemia Hypomagnesemia This complex discharge took 35 minutes to complete. Patient Condition at Discharge: Stable Plan - Discharge Summary Discharge Rx Participant: No New Discharge Prescriptions: No Action Acetaminophen Tab [Tylenol] 650 mg PO QID PRN PRN Reason: Pain Chlorpheniramine Maleate [Chlor-Trimeton] 4 mg PO Q4H PRN PRN Reason: Allergy Symptoms Famotidine [Pepcid] 40 mg PO BID@0600,1800 traZODone HCL [Desyrel] 50 - 150 mg PO HS ondansetron HCL [Zofran] 8 mg PO Q6H PRN PRN Reason: Nausea Calcium/Mag/Zinc/D3 1 tab PO TID Mylanta 30 ml PO Q4H PRN PRN Reason: Gi Upset carvediloL [Coreg*] 12.5 mg PO BID@0600,1800 cloNIDine HCL [Catapres] 0.1 - 0.3 mg PO Q4H PRN PRN Reason: Hypertension Ibuprofen [Motrin Ib] 600 mg PO Q6H PRN PRN Reason: Pain Loperamide [Imodium] 2 - 4 mg PO QID PRN PRN Reason: Diarrhea Multivitamins, Thera [Multivitamin (formulary)] 1 tab PO DAILY PRN PRN Reason: SUPPLEMENT Thiamine [Vitamin B-1] 100 mg PO DAILY PRN PRN Reason: SUPPLEMENT Discharge Medication List ondansetron HCL [Zofran] 8 mg PO Q6H PRN 03/17/23 [History] Acetaminophen Tab [Tylenol] 650 mg PO QID PRN 04/02/23 [History] Calcium/Mag/Zinc/D3 1 tab PO TID 04/02/23 [History] Chlorpheniramine Maleate [Chlor-Trimeton] 4 mg PO Q4H PRN 04/02/23 [History] Famotidine [Pepcid] 40 mg PO BID@0600,1800 04/02/23 [History] Ibuprofen [Motrin Ib] 600 mg PO Q6H PRN 04/02/23 [History] Loperamide [Imodium] 2 - 4 mg PO QID PRN 04/02/23 [History] Multivitamins, Thera [Multivitamin (formulary)] 1 tab PO DAILY PRN 04/02/23 [History] Mylanta 30 ml PO Q4H PRN 04/02/23 [History] Thiamine [Vitamin B-1] 100 mg PO DAILY PRN 04/02/23 [History] carvediloL [Coreg*] 12.5 mg PO BID@0600,1800 04/02/23 [History] cloNIDine HCL [Catapres] 0.1 - 0.3 mg PO Q4H PRN 04/02/23 [History] traZODone HCL [Desyrel] 50 - 150 mg PO HS 04/02/23 [History] Follow up Appointment(s)/Referral(s): Nonstaff,Physician [Primary Care Provider] - 1-2 days
--- NOTE | 2023-04-19 14:47 | P.CNNES ---
History of Present Illness Consult date: 04/19/23 Requesting physician: Vince Arevalo Reason for Consult: Confusion History of Present Illness: Patient is a 57-year-old biological female, identify as male, with history of alcoholism, came to the hospital from [place] because of altered mental status, with confusion, hallucination, suspected alcohol withdrawal. Patient states that he drinks about 5 days a week. He drinks 1 pint of vodka about twice a week and about half pint or less 3 days a week. Couple days he does not drink. Patient states that in around 2002 or 2003, he was drinking up to a fifth of vodka daily which she did for about 1-1/2-2 years. Denies any drug use, or tobacco. Patient tells me that he came to the hospital was in was having chest pain, pointing to the anterior lower rib cage. He states his EKG is good, and was told that it is musculoskeletal in origin. He probably got some injury how he was doing the bench press. Patient says that he has this pain off and on for 2 years, but also remembers having similar pain in the as well. Patient at baseline is alert and oriented 3. He was also in ICU because of Ativan overdose and stayed there for about a day. Per nursing report, patient still gets confused, disoriented may be oriented times self and place but not to time. This prompted neurology consultation. Patient says that he used to take a lot of hormones for about 12-13 years in the 90s. He is not on any hormones at this time. Review of Systems Constitutional: Denies chills, Denies fever, Denies night sweats, Denies weight gain, Denies weight loss Eyes: denies blurred vision, denies diplopia, denies pain Ears: deny: decreased hearing, ear discharge Ears, nose, mouth and throat: Denies headache, Denies nasal congestion, Denies sore throat Cardiovascular: Reports chest pain, Denies lightheadedness, Denies shortness of breath Respiratory: Denies cough, Denies excessive sputum Gastrointestinal: Denies abdominal pain, Denies diarrhea, Denies nausea, Denies vomiting Genitourinary: Denies dysuria, Denies hematuria, Denies mixed incontinence, Denies urgency Musculoskeletal: Denies low back pain, Denies myalgias, Denies neck pain Integumentary: Denies pruritus, Denies rash Neurological: Reports as per HPI, Denies numbness, Denies paresthesias, Denies seizures, Denies weakness Psychiatric: Denies anxiety, Denies depression Endocrine: Denies fatigue, Denies weight change Hematologic/Lymphatic: Denies easy bleeding, Denies easy bruising Past Medical History Additional Past Medical History / Comment(s): ETOH abuse History of Any Multi-Drug Resistant Organisms: Unobtainable Past Surgical History: No Surgical Hx Reported Past Anesthesia/Blood Transfusion Reactions: Unable to Obtain Past Psychological History: No Psychological Hx Reported, Unable to Obtain Smoking Status: Unknown if ever smoked Past Alcohol Use History: Abuse, Daily, Heavy Past Drug Use History: None Reported Medications and Allergies Home Medications Medication Instructions Recorded Confirmed Type ondansetron HCL [Zofran] 8 mg PO Q6H PRN 03/17/23 04/02/23 History Acetaminophen Tab [Tylenol] 650 mg PO QID PRN 04/02/23 04/02/23 History Calcium/Mag/Zinc/D3 1 tab PO TID 04/02/23 04/02/23 History Famotidine [Pepcid] 40 mg PO BID@0600,1800 04/02/23 04/02/23 History Ibuprofen [Motrin Ib] 600 mg PO Q6H PRN 04/02/23 04/02/23 History Loperamide [Imodium] 2 - 4 mg PO QID PRN 04/02/23 04/02/23 History Multivitamins, Thera [Multivitamin 1 tab PO DAILY PRN 04/02/23 04/02/23 History (formulary)] Mylanta 30 ml PO Q4H PRN 04/02/23 04/02/23 History Thiamine [Vitamin B-1] 100 mg PO DAILY PRN 04/02/23 04/02/23 History traZODone HCL [Desyrel] 50 - 150 mg PO HS 04/02/23 04/02/23 History Metoprolol Tartrate [Lopressor] 25 mg PO BID #60 tab 04/19/23 Rx amLODIPine [Norvasc] 5 mg PO BID #60 tab 04/19/23 Rx hydrALAZINE HCL [Apresoline] 25 mg PO BID #60 tab 04/19/23 Rx lisinopriL [Zestril] 20 mg PO DAILY #30 tab 04/19/23 Rx Allergies Allergy/AdvReac Type Severity Reaction Status Date / Time No Known Allergies Allergy Verified 04/02/23 07:15 Physical Examination - Vital Signs Vital Signs: Vital Signs Temp Pulse Resp BP BP Pulse Ox 04/19/23 07:25 97.7 F 80 16 100/67 97 04/19/23 00:24 98.2 F 66 16 112/71 97 04/18/23 19:18 97.7 F 79 16 121/74 98 04/18/23 14:25 97.8 F 77 16 114/73 98 Intake and Output 04/18/23 04/19/23 04/19/23 22:59 06:59 14:59 Intake Total 118 Balance 118 Intake: Oral 118 Other: Voiding Method Toilet # Voids 1 1 Patient is a middle aged male, in no acute distress. Patient is alert awake oriented to time place and person. Patient knows it is April 2023. He believes that it is the , although it is actually . He knows it is [facility] in [place]. He knows that he lives in [facility]. Also knows name of the current president. Speech and language functions are normal. Patient can name and repeat very well. No aphasia or dysarthria. Sometimes he stutters. Attention, concentration and fund of knowledge is adequate. On cranial nerve examination, pupils are equal, round and reacting to light, visual peacock are full on confrontation, with no neglect on double simultaneous stimulation. Extraocular muscles are intact with no nystagmus. Face is symmetric, tongue protrudes to the midline. Palatal elevation and sensation normal, hearing and shoulder shrug normal, facial sensation normal. On muscle strength testing, there is no pronator drift and the strength is normal in arms and legs distally and proximally. There is very mild fine tremor of outstretched hands. Deep tendon reflexes are symmetric 2 at the biceps, 1 brachioradialis, 2 at the knees, and ankles and plantars downgoing bilaterally. Sensory to touch is equal with no neglect on double simultaneous stimulation. Cerebellar function showed no ataxia for [id number] testing. No dysdiadochokinesia. No ataxia for [id number] testing on either side. Tone and bulk of muscles normal. Gait deferred.. On general examination, there is no carotid bruit or murmur, S1-S2 audible. Chest is clear on consultation. Abdomen is soft nontender. No organomegaly, bowel sounds present. Peripheral pulses are present. No peripheral edema. Results - Laboratory Findings CBC and BMP: 04/16/23 08:53 04/16/23 08:53 Abnormal Lab Findings: Abnormal Labs 04/02/23 04/02/23 04/03/23 04:12 04:12 11:33 WBC RBC Hgb 10.8 L 9.9 L Hct 31.6 L MCH MCHC RDW 18.8 H 19.1 H Plt Count Neutrophils # Lymphocytes # D-Dimer ABG pH ABG pCO2 ABG pO2 ABG HCO3 ABG Total CO2 ABG O2 Saturation Sodium Chloride Carbon Dioxide Anion Gap BUN Creatinine 1.24 H Est GFR (CKD-EPI) Glucose POC Glucose (mg/dL) Calcium Magnesium 1.2 L AST 51 H Albumin 3.4 L Vitamin B12 Procalcitonin U Benzodiazepines Scrn 04/03/23 04/04/23 04/04/23 11:33 06:31 11:22 WBC RBC Hgb Hct MCH MCHC RDW Plt Count Neutrophils # Lymphocytes # D-Dimer ABG pH ABG pCO2 ABG pO2 ABG HCO3 ABG Total CO2 ABG O2 Saturation Sodium 135 L Chloride Carbon Dioxide 20 L 18 L Anion Gap BUN 6 L Creatinine Est GFR (CKD-EPI) Glucose POC Glucose (mg/dL) Calcium Magnesium 1.1 L 1.3 L AST Albumin Vitamin B12 1699.0 H Procalcitonin U Benzodiazepines Scrn 04/04/23 04/04/23 04/04/23 22:38 22:45 23:30 WBC RBC Hgb Hct MCH MCHC RDW Plt Count Neutrophils # Lymphocytes # D-Dimer 2.00 H ABG pH ABG pCO2 ABG pO2 40 L* ABG HCO3 26 H ABG Total CO2 27 H ABG O2 Saturation 68.3 L Sodium Chloride Carbon Dioxide Anion Gap BUN Creatinine Est GFR (CKD-EPI) Glucose POC Glucose (mg/dL) Calcium Magnesium AST Albumin Vitamin B12 Procalcitonin U Benzodiazepines Scrn Positive A 04/05/23 04/05/23 04/05/23 01:50 04:53 06:10 WBC RBC Hgb Hct MCH MCHC RDW Plt Count Neutrophils # Lymphocytes # D-Dimer ABG pH 7.49 H ABG pCO2 32 L ABG pO2 243 H ABG HCO3 ABG Total CO2 25 H ABG O2 Saturation 100.0 H Sodium Chloride Carbon Dioxide Anion Gap BUN Creatinine Est GFR (CKD-EPI) Glucose POC Glucose (mg/dL) 115 H 111 H Calcium Magnesium AST Albumin Vitamin B12 Procalcitonin U Benzodiazepines Scrn 04/05/23 04/05/23 04/05/23 06:36 06:36 06:36 WBC 15.0 H RBC Hgb 10.3 L Hct 33.8 L MCH MCHC 30.5 L RDW 19.3 H Plt Count Neutrophils # Lymphocytes # D-Dimer ABG pH ABG pCO2 ABG pO2 ABG HCO3 ABG Total CO2 ABG O2 Saturation Sodium 132 L Chloride Carbon Dioxide Anion Gap BUN Creatinine 1.08 H Est GFR (CKD-EPI) Glucose 104 H POC Glucose (mg/dL) Calcium 8.3 L Magnesium AST Albumin Vitamin B12 Procalcitonin 1.55 H U Benzodiazepines Scrn 04/05/23 04/05/23 04/06/23 08:25 11:40 04:01 WBC 12.5 H RBC 3.12 L Hgb 8.0 L D Hct 26.3 L MCH MCHC 30.4 L RDW 19.2 H Plt Count Neutrophils # 10.7 H Lymphocytes # 0.7 L D-Dimer ABG pH ABG pCO2 ABG pO2 ABG HCO3 ABG Total CO2 ABG O2 Saturation Sodium Chloride Carbon Dioxide Anion Gap BUN Creatinine Est GFR (CKD-EPI) Glucose POC Glucose (mg/dL) 114 H Calcium Magnesium AST Albumin Vitamin B12 Procalcitonin U Benzodiazepines Scrn Detected H 04/06/23 04/06/23 04/06/23 04:01 05:46 06:16 WBC RBC Hgb Hct MCH MCHC RDW Plt Count Neutrophils # Lymphocytes # D-Dimer ABG pH 7.47 H ABG pCO2 32 L ABG pO2 134 H ABG HCO3 ABG Total CO2 ABG O2 Saturation 99.6 H Sodium 135 L Chloride 108 H Carbon Dioxide 21 L Anion Gap BUN 23 H Creatinine 1.36 H Est GFR (CKD-EPI) Glucose POC Glucose (mg/dL) 112 H Calcium 7.1 L Magnesium AST Albumin Vitamin B12 Procalcitonin U Benzodiazepines Scrn 04/06/23 04/07/23 04/07/23 15:39 05:26 05:26 WBC RBC 3.13 L Hgb 8.2 L Hct 25.9 L MCH MCHC RDW 19.5 H Plt Count Neutrophils # 8.8 H Lymphocytes # 0.7 L D-Dimer ABG pH ABG pCO2 33 L ABG pO2 145 H ABG HCO3 ABG Total CO2 ABG O2 Saturation 99.9 H Sodium Chloride Carbon Dioxide Anion Gap BUN Creatinine 1.11 H Est GFR (CKD-EPI) Glucose POC Glucose (mg/dL) Calcium 7.9 L Magnesium AST Albumin Vitamin B12 Procalcitonin U Benzodiazepines Scrn 04/08/23 04/08/23 04/09/23 05:06 05:06 05:26 WBC 12.6 H RBC 3.45 L Hgb 9.0 L Hct 28.7 L MCH MCHC RDW 19.4 H Plt Count Neutrophils # 10.9 H Lymphocytes # 0.7 L D-Dimer ABG pH ABG pCO2 ABG pO2 ABG HCO3 ABG Total CO2 ABG O2 Saturation Sodium Chloride Carbon Dioxide Anion Gap BUN Creatinine Est GFR (CKD-EPI) Glucose 107 H 103 H POC Glucose (mg/dL) Calcium 8.3 L Magnesium 1.4 L AST Albumin Vitamin B12 Procalcitonin U Benzodiazepines Scrn 04/09/23 04/10/23 04/11/23 05:26 08:50 01:47 EST WBC 12.6 H RBC 3.24 L Hgb 8.7 L Hct 27.3 L MCH MCHC RDW 19.2 H Plt Count Neutrophils # 10.6 H Lymphocytes # 0.7 L D-Dimer ABG pH ABG pCO2 49 H ABG pO2 38 L* ABG HCO3 28 H ABG Total CO2 29 H ABG O2 Saturation 61.4 L Sodium Chloride Carbon Dioxide Anion Gap BUN Creatinine Est GFR (CKD-EPI) Glucose POC Glucose (mg/dL) Calcium Magnesium 1.4 L AST Albumin Vitamin B12 Procalcitonin U Benzodiazepines Scrn 04/11/23 04/11/23 04/12/23 07:32 09:46 06:36 WBC RBC 3.00 L 3.14 L Hgb 8.3 L 8.1 L Hct 25.5 L 26.4 L MCH MCHC 30.7 L RDW 19.1 H 19.2 H Plt Count Neutrophils # Lymphocytes # 0.6 L 0.9 L D-Dimer ABG pH ABG pCO2 ABG pO2 ABG HCO3 ABG Total CO2 ABG O2 Saturation Sodium Chloride Carbon Dioxide Anion Gap BUN Creatinine Est GFR (CKD-EPI) Glucose POC Glucose (mg/dL) Calcium Magnesium 1.5 L AST Albumin Vitamin B12 Procalcitonin U Benzodiazepines Scrn 04/12/23 04/16/23 04/16/23 06:36 08:53 08:53 WBC 10.37 H RBC Hgb 10.8 L Hct 37.0 L MCH 25.2 L MCHC 29.2 L RDW 19.7 H Plt Count 754 H Neutrophils # Lymphocytes # D-Dimer ABG pH ABG pCO2 ABG pO2 ABG HCO3 ABG Total CO2 ABG O2 Saturation Sodium Chloride Carbon Dioxide Anion Gap 12.60 H BUN Creatinine Est GFR (CKD-EPI) 49 L Glucose 103 H POC Glucose (mg/dL) Calcium 10.6 H Magnesium 1.4 L AST Albumin Vitamin B12 Procalcitonin U Benzodiazepines Scrn Assessment and Plan Assessment: * Altered mental status, likely due to mild delirium. Possible mild residual alcohol withdrawal. * Status post delirium tremens. Status post extubation 04/06/2023. * Status post ammonia. * Anemia * Thrombocythemia * History of alcoholism * History of hypoxemia, now resolved Plan: * Patient perhaps has mild delirium, which may be related to the reasons mentioned above. * Patient has significant anemia. Also has significant thrombocythemia. Recommend hematology consultation, perhaps may also need GI evaluation with an EGD and colonoscopy. * Patient's B12, folate are normal. Ammonia is normal. * Medical management as per IM and pulmonary medicine. * Neurologically, no other workup indicated. Neurology will follow clinically. * Thank you for the consult.
[2023-04-19 15:14] VITALS: BP 114/76; PULSE 88; TEMP 97.6
== END 2023-04-19 15:51 | disposition home or self-care (01) | DRG 775 ==
LOC: EC 03:30 → 4SSUR 04:07 → 2SICU 04-05 02:18 → 3SCARD 04-09 22:24 → 6NMEDSUR 04-14 07:43
PROVIDERS: ADMIT Internal Medicine; ATTEND Internal Medicine
PROC: HZ2ZZZZ Detoxification Services for Substance Abuse Treatment (ICD-10-PCS; principal; 2023-04-02)
PROC: 0BH18EZ Insertion of Endotracheal Airway into Trachea, Via Natural or Artificial Opening Endoscopic (ICD-10-PCS; 2023-04-05)
PROC: 5A1945Z Respiratory Ventilation, 24-96 Consecutive Hours (ICD-10-PCS; 2023-04-05)
PROC: 3E043XZ Introduction of Vasopressor into Central Vein, Percutaneous Approach (ICD-10-PCS; 2023-04-06)
PROC: 5A0935A Assistance with Respiratory Ventilation, Less than 24 Consecutive Hours, High Flow/Velocity Cannula (ICD-10-PCS; 2023-04-07)
PROC: 5A09357 Assistance with Respiratory Ventilation, Less than 24 Consecutive Hours, Continuous Positive Airway Pressure (ICD-10-PCS; 2023-04-11)
DX: F10.231 Alcohol dependence with withdrawal delirium (principal); A41.9 Sepsis, unspecified organism; N17.9 Acute kidney failure, unspecified; J96.01 Acute respiratory failure with hypoxia; J69.0 Pneumonitis due to inhalation of food and vomit; R65.21 Severe sepsis with septic shock; G93.41 Metabolic encephalopathy; I16.0 Hypertensive urgency; I10 Essential (primary) hypertension; D64.9 Anemia, unspecified; E83.42 Hypomagnesemia; R33.9 Retention of urine, unspecified; T42.4X1A Poisoning by benzodiazepines, accidental (unintentional), initial encounter; D75.839 Thrombocytosis, unspecified; E87.70 Fluid overload, unspecified; Z79.890 Hormone replacement therapy; Z79.899 Other long term (current) drug therapy; Z28.310 Unvaccinated for COVID-19
CPT/HCPCS: 36415; 36600; 70450; 71045; 71046; 71275; 80048; 80053; 80143; 80179; 80306; 82140; 82607; 82746; 82805; 83605; 83735; 84132; 84145; 84443; 85025; 85027; 85379; 87040; 87070; 87205; 93005; 94002; 94003; 94660; 94760; 96361; 96365; 96372; 96375; 96376; 99285